=== PATIENT | male | born 1985 | race Caucasian/White ===

== ENCOUNTER 2019-03-06 17:24 | Emergency (ER) | payer OTHER ==
--- OUTSIDE RECORDS SUMMARY | 2019-03-06 17:26 | XMS REPORT ---
:1985 [facility] Address [address] [place] [address] Dr. Vargas [address] [place] [id number] Care Team Providers Name Role Phone Unavailable Unavailable Unavailable Problems This patient has no known problems. Allergies, Adverse Reactions, Alerts This patient has no known allergies or adverse reactions. Medications This patient has no known medications.
[2019-03-06] MEDS ORDERED: FENTANYL CITR 100 MCG/2 ML ONE (18:13)
[2019-03-06] MEDS ORDERED: NA CHLORIDE 0.9% 1,000 ML ONE (18:14)
[2019-03-06] MEDS ORDERED: ONDANSETRON 4 MG/2 ML VIAL ONE (18:14)
[2019-03-06 18:29] LABS: Absolute Monocytes 1.1 K/uL (0.1-1.3); Absolute Neutrophil 8.8 K/uL (1.8-8.0); Basophils % 0.2 % (0-1.3); Eosinophils % 0.2 % (0-4.4); Hematocrit 44.6 % (39.6-49.0); Lymphocytes % 16.5 % (15.3-44.8); MPV 8.4 fL (7.6-11.3); Monocytes % 8.9 % (3.3-12.3); RBC Red Blood Cell Count 4.93 M/uL (4.33-5.43)
[2019-03-06] MEDS ORDERED: LIDOCAINE 1% MPF 5 ML VIAL ONE (18:29)
[2019-03-06] MEDS ORDERED: TETANUS & DIPHTHERIA TOX,ADULT 0.5 ML VIAL ONE (18:29)
[2019-03-06 18:36] LABS: BUN Blood Urea Nitrogen 9 mg/dL (7-18); Bicarbonate 23 mmol/L (21-32); Glucose Level 89 mg/dL (74-106); Potassium 3.6 mmol/L (3.5-5.1); Sodium Level 142 mmol/L (136-145)
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
[2019-03-06 22:34] VITALS: TEMP 99
[2019-03-06 22:36] VITALS: BP 133/98; O2SAT 96
== END 2019-03-06 21:27 | disposition home or self-care (01) ==
LOC: ER 17:24
PROC: 0CQ0XZZ Repair Upper Lip, External Approach (ICD-10-PCS; principal; 2019-03-06)
DX: S01.511A Laceration without foreign body of lip, initial encounter (principal); S02.2XXA Fracture of nasal bones, initial encounter for closed fracture; W50.0XXA Accidental hit or strike by another person, initial encounter; Y93.89 Activity, other specified; Y92.89 Other specified places as the place of occurrence of the external cause; Z04.71 Encounter for examination and observation following alleged adult physical abuse; Z23 Encounter for immunization; F17.210 Nicotine dependence, cigarettes, uncomplicated
CPT/HCPCS: 36415; 70450; 70486; 71260; 72125; 74177; 76377; 80048; 85025; 86850; 86900; 86901; 90471; 90714; 96361; 96374; 96375; 99285; J2405; J3010; J7030; Q9967

== ENCOUNTER 2022-08-08 03:53 | Emergency (ER) | payer OTHER ==
--- OUTSIDE RECORDS SUMMARY | 2022-08-08 03:57 | XMS REPORT | Continuity of Care Document ---
:1985 Author Organization [facility] t Address [address] [place] [address] Care Team Providers Name Role Phone CAS AMADOR Primary Care Physician Unavailable SULEMAN ROJAS Attending Clinician Unavailable Suleman Bhakta Attending Clinician DON FRITZ Attending Clinician Unavailable JAMILAH GUDINO Attending Clinician Unavailable Lab, Adc Fam Pob I Attending Clinician Unavailable Jamilah Cunha Attending Clinician Doctor Unassigned, [place] Attending Clinician Unavailable SULEMAN ROJAS Admitting Clinician Unavailable Payers Payer Name Policy Type Policy Number Effective Date Expiration Date Mckenzie veliz MEDICARE PART A [id number] 2018 \T\ B 00:00:00 Problems Condition Condition Condition Status Onset Resolution Last Treating Co mments Source Name Details Category Date Date Treatment Clinician Date No known No known Disease Unive rs active active ity of problems problems [facility] Allergies, Adverse Reactions, Alerts Allergy Allergy Status Severity Reaction(s) Onset Inactive Treating Comm ents Source Name Type Date Date Clinician NO KNOWN Drug Active Univers ALLERGIE Class ity of S [facility] Social History Social Habit Start Date Stop Date Quantity Comments Source Exposure to 2022-06-08 2022-06-18 Not sure [facility] SARS-CoV-2 (event) 00:00:00 17:18:00 Medica l Branch Sex Ass[birth year] [facility] 00:00:00 00:00:00 Medical Branch Smoking Status Start Date Stop Date Source Tobacco smoking consumption General acute hospital Medications Ordered Filled Start Stop Current Ordering Indication Dosage Frequency Signature Comments Components Source Medication Medication Date Date Medication? Clinician (SIG) Name Name NaCl 0.9% No 1000mL at 999 Uni vers (NS) bolus 06-19 mL/hr, ity of infusion 01:15: 02:59 1,000 mL, Nitin as 1,000 mL 00 :00 IV Medical Infusion, Branch ONCE, 1 dose, On Thu06/18/22 at 2015, MARCIANO cyclobenzap Yes [id number] 10mg Take 1 Univers rine 10 mg 9-21 tablet by ity of tablet 00:00: mouth 3 [place] 00 (three) Medical times Branch daily with meals as needed for Muscle Spasms. ibuprofen Yes [id number] 800mg Take 1 Univers 800 mg 9-21 tablet by ity of tablet 00:00: mouth [place] 00 every 8 Medical (eight) Branch hours as needed for Pain (scale 4-6). sucralfate 2021- Yes [id number] 1g Take 1 Univers 1 gram 9-21 10-06 tablet by ity of tablet 00:00: 04:59 mouth [place] 00 :00 before Medical meals and Branch at bedtime for 14 days. Vital Signs Vital Name Observation Time Observation Value Comments Source Systolic blood 2022-06-19 02:42:00 134 mm[Hg] Univer [facility] Diastolic blood 2022-06-19 02:42:00 79 mm[Hg] [facility] Heart rate 2022-06-19 02:42:00 73 /min [facility] Body temperature 2022-06-19 02:42:00 36.56 [facility] Respiratory rate 2022-06-19 02:42:00 18 /[facility] Oxygen saturation in 2022-06-19 02:42:00 96 /min [facility] Arterial blood by [facility] Pulse oximetry Branch Body weight 2022-06-18 22:19:00 104.327 kg [facility] Procedures Procedure Date / Time Performed Performing Clinician Tricia e URINALYSIS 2022-06-19 00:45:00 Suleman Rojas [facility] COMP. METABOLIC PANEL 2022-06-19 00:23:00 Suleman Rojas [facility] ([id number]) [facility] CBC WITH DIFF 2022-06-19 00:23:00 Suleman Rojas [facility] CT ABDOMEN PELVIS WO 2022-06-19 00:04:00 Suleman Rojas [facility] Encounters Start End Encounter Admission Attending Care Care Encounter Source Date/Time Date/Time Type Type Clinicians Facility Department ID 2022-06-18 2022-06-18 Emergency X BOB, [facility] ERT [id number] Univers 17:20:00 22:23:00 SULEMAN [facility] 2022-06-18 2022-06-18 Emergency [place], TRAUMA [id number] Univers 17:20:00 22:23:00 Suleman B[place] [id number] [id number] [id number] [id number] Branch 2021-11-23 2021-11-23 Outpatient R LAM [facility] [id number] Univers 16:30:00 16:30:00 DON aburto [facility] [place] 2020-11-30 2020-11-30 Outpatient R TERESE [facility] [id number] Univers 17:20:00 17:20:00 [facility] 2020-11-30 Laboratory Lab, Adc Fam Pob I [facility] [id number] Univers 16:56:52 17:16:52 Only Jamilah Gudino [id number] ity of [place] [id number] Nitin as Professio [phone] [address] [employer] 2020-11-30 2020-11-30 Letter Doctor DON [id number] Univers 00:00:00 00:00:00 (Out) Unassigned, VINEET [id number] ity of [place] [facility] [id number] Nitin as [phone] Medi farhana 044 Branch Results This patient has no known results.
[2022-08-08] MEDS ORDERED: ASPIRIN 81 MG CHEWABLE TABLET ONE (04:34)
[2022-08-08] MEDS ORDERED: ONDANSETRON 4 MG/2 ML VIAL ONE (04:35)
[2022-08-08] MEDS ORDERED: NA CHLORIDE 0.9% 1,000 ML ONE (04:35)
[2022-08-08] MEDS ORDERED: FAMOTIDINE 20 MG/2 ML VIAL IV ONE (04:35)
[2022-08-08] MEDS ORDERED: NA CHLORIDE 0.9% 500 ML ONE (04:35)
[2022-08-08] MEDS ORDERED: MORPHINE 4 MG/ML SYR ONE (04:35)
[2022-08-08 05:26] LABS: Absolute Lymphocytes (CBC) 0.8 K/uL (0.7-4.9); Hematocrit 41.7 % (39.6-49.0); Lymphocytes % 10.5 % (15.3-44.8); MCV 89.6 fL (80-100); MPV 8.1 fL (7.6-11.3); RBC Red Blood Cell Count 4.66 M/uL (4.33-5.43)
[2022-08-08 05:29] LABS: Protime INR 0.97
[2022-08-08 05:36] LABS: SARS-CoV-2 Antigen Rapid Res Negative (Negative)
[2022-08-08 05:48] LABS: ALT/SGPT 159 U/L (12-78); Albumin 3.6 g/dL (3.4-5.0); Alkaline Phosphatase 84 U/L (45-117); BUN Blood Urea Nitrogen 9 mg/dL (7-18); Bicarbonate 26 mmol/L (21-32); Bilirubin Total 0.3 mg/dL (0.2-1.0); Glomerular Filtration Rate 104 ml/min (=/>90); Glucose Level 128 mg/dL (74-106); Lipase 125 U/L (73-393); NT PRO-BNP 5 pg/mL (<125); Protein, Total 7.1 g/dL (6.4-8.2); Sodium Level 135 mmol/L (136-145); Troponin High Sensitivity 4.7 pg/mL (<58.9)
[2022-08-08 05:50] LABS: AST/SGOT 93 U/L (15-37); Bilirubin Direct < 0.1 mg/dL (0-0.2); Magnesium 2.2 mg/dL (1.8-2.4); Potassium 4.1 mmol/L (3.5-5.1)
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
--- NOTE | 2022-08-08 07:00 | EDPHYS ---
Physician Documentation [facility] Name: Christo Mcknight Age: 36 yrs Sex: Male : 1985 Arrival Date: 08/08/2022 Time: 03:56 Bed 16 Private MD: DEBBIE Physician Kamari Young HPI: 08/08 05:04 This 36 yrs old Male presents to ER via Ambulatory with complaints of Chest fredo Pain, Numbness Of Arm, Cough. 05:04 The patient or guardian reports chest pain that is located primarily in the anterior fredo chest wall, left. The pain does not radiate. Associated signs and symptoms: The patient has no apparent associated signs or symptoms. The chest pain is described as aching. Duration: The patient or guardian reports a single episode, that is still ongoing. Modifying factors: The symptoms are alleviated by remaining still, the symptoms are aggravated by movement. Severity of pain: At its worst the pain was moderate in the emergency department the pain is unchanged. The patient has not experienced similar symptoms in the past. Historical: - PMHx: 04:28 ACUTE MANIC DEPPRESIION; Bipolar disorder; Schizophrenia; kd3 - Immunization history:: Adult Immunizations up to date. - Social history:: Smoking status: Patient reports the use of cigarette tobacco products, smokes one pack cigarettes per day. - Family history:: not pertinent. ROS: 05:04 Constitutional: Negative for fever, chills, and weight loss, Eyes: Negative for injury, fredo pain, redness, and discharge, ENT: Negative for injury, pain, and discharge, Neck: Negative for injury, pain, and swelling, Respiratory: Negative for shortness of breath, cough, wheezing, and pleuritic chest pain, Back: Negative for injury and pain, : Negative for injury, bleeding, discharge, and swelling, MS/Extremity: Negative for injury and deformity, Skin: Negative for injury, rash, and discoloration, Neuro: Negative for headache, weakness, numbness, tingling, and seizure, Psych: Negative for depression, anxiety, suicide ideation, homicidal ideation, and hallucinations, Allergy/Immunology: Negative for hives, rash, and allergies, Endocrine: Negative for neck swelling, polydipsia, polyuria, polyphagia, and marked weight changes, Hematologic/Lymphatic: Negative for swollen nodes, abnormal bleeding, and unusual bruising. 05:04 Cardiovascular: Positive for chest pain, of the chest. 05:04 Abdomen/GI: Positive for abdominal pain, nausea and vomiting, of the right upper quadrant, left upper quadrant, right lower quadrant and left lower quadrant. Exam: 05:04 Constitutional: This is a well developed, well nourished patient who is awake, alert, fredo and in no acute distress. Head/Face: Normocephalic, atraumatic. Eyes: Pupils equal round and reactive to light, extra-ocular motions intact. Lids and lashes normal. Conjunctiva and sclera are non-icteric and not injected. Cornea within normal limits. Periorbital areas with no swelling, redness, or edema. ENT: Nares patent. No nasal discharge, no septal abnormalities noted. Tympanic membranes are normal and external auditory canals are clear. Oropharynx with no redness, swelling, or masses, exudates, or evidence of obstruction, uvula midline. Mucous membranes moist. Neck: Trachea midline, no thyromegaly or masses palpated, and no cervical lymphadenopathy. Supple, full range of motion without nuchal rigidity, or vertebral point tenderness. No Meningismus. Chest/axilla: Normal chest wall appearance and motion. Nontender with no deformity. No lesions are appreciated. Respiratory: Lungs have equal breath sounds bilaterally, clear to auscultation and percussion. No rales, rhonchi or wheezes noted. No increased work of breathing, no retractions or nasal flaring. Abdomen/GI: Soft, non-tender, with normal bowel sounds. No distension or tympany. No guarding or rebound. No evidence of tenderness throughout. Back: No spinal tenderness. No costovertebral tenderness. Full range of motion. Male : Normal genitalia with no discharge or lesions. Skin: Warm, dry with normal turgor. Normal color with no rashes, no lesions, and no evidence of cellulitis. MS/ Extremity: Pulses equal, no cyanosis. Neurovascular intact. Full, normal range of motion. Neuro: Awake and alert, GCS 15, oriented to person, place, time, and situation. Cranial nerves II-XII grossly intact. Motor strength 5/5 in all extremities. Sensory grossly intact. Cerebellar exam normal. Normal gait. Psych: Awake, alert, with orientation to person, place and time. Behavior, mood, and affect are within normal limits. 05:04 Cardiovascular: Rate: tachycardic, Rhythm: regular, Pulses: Pulses are 4+ in bilateral radial, brachial, femoral, popliteal, posterior tibial and and dorsalis pedis arteries.. Heart sounds: normal, normal S1and S2, no S3 or S4, no murmur, no rub, no gallop, Edema: is not appreciated, JVD: is not appreciated. 05:04 ECG was reviewed by the Attending Physician. 07:12 ECG was reviewed by the Attending Physician. fredo Vital Signs: 04:25 BP 123 / 80; Pulse 107; Resp 20; Temp 98.6(O); Pulse Ox 94% on R/A; Weight 103.42 kg; kd3 Height 5 ft. 9 in. (175.26 cm); Pain 8/10; 05:07 BP 140 / 87; Pulse 110; Resp 18 S; Pulse Ox 96% on R/A; aa9 05:15 BP 125 / 80; Pulse 108; Resp 17 S; Pulse Ox 95% on R/A; aa9 06:00 BP 128 / 82; Pulse 107; Resp 17 S; Pulse Ox 95% on R/A; aa9 07:05 BP 126 / 84; Pulse 103; Resp 16 S; Pulse Ox 99% on R/A; aa9 04:25 Body Mass Index 33.67 (103.42 kg, 175.26 cm) kd3 MDM: 04:18 Patient medically screened. fredo 05:07 Differential diagnosis: abnormal EKG, acute myocardial infarction, coronary artery fredo disease chest wall pain, Cholelithiasis costochondritis, hiatal hernia, pancreatitis, pericarditis, stable angina, unstable angina. HEART Score: History: Slightly Suspicious (0), ECG: Non specific repolarization disturbance / LBTB / PM (1), Age: < or = 45 years (0), Risk Factors: No Risk Factors Known (0), Troponin: < or = 1 x Normal Limit (0). The patient's deep vein thrombosis risk score was calculated as follows: Total Score: 0. This patient was found to be at low risk for a deep vein thrombosis by using the Well's assessment criteria. The patient's pulmonary embolism risk score was calculated as follows: the patients heart rate is greater than 100 beats per minute (1.5 Pts) Total Score: 0-2 points. This patient was found to be at low risk for a pulmonary embolism by using the Well's assessment criteria. JOSELO Risk Score: TOTAL SCORE = 0. Data reviewed: vital signs, nurses notes, lab test result(s), EKG, radiologic studies, CT scan, plain films. Data interpreted: deputy clerk: rate is 107 beats/min, rhythm is regular, Pulse oximetry: on room air is 94 %. Test interpretation: by ED physician or midlevel provider: ECG, plain radiologic studies. Counseling: I had a detailed discussion with the patient and/or guardian regarding: the historical points, exam findings, and any diagnostic results supporting the discharge/admit diagnosis, radiology results, the need for outpatient follow up, for definitive care, a fire prevention specialist, a family practitioner. 08/08 04:18 Order name: Basic Metabolic Panel; Complete Time: 06:21 [facility] 08/08 04:18 Order name: CBC with Diff; Complete Time: 05:34 08/08 04:18 Order name: LFT's; Complete Time: 06:21 08/08 04:18 Order name: Magnesium; Complete Time: 06:21 08/08 04:18 Order name: NT PRO-BNP; Complete Time: 06:21 08/08 04:18 Order name: PT-INR; Complete Time: 05:34 08/08 04:18 Order name: Troponin HS; Complete Time: 06:21 08/08 04:18 Order name: XRAY Chest (1 view) 08/08 04:18 Order name: Lipase; Complete Time: 06:21 08/08 04:18 Order name: SARS RAPID; Complete Time: 06:21 08/08 04:49 Order name: CT Chest, Abdomen, Pelvis - W/Contrast 08/08 06:54 Order name: Troponin High Sensitivity; Complete Time: 07:43 08/08 04:18 Order name: EKG; Complete Time: 04:19 08/08 04:18 Order name: Cardiac monitoring; Complete Time: 04:31 08/08 04:18 Order name: EKG - Nurse/Tech; Complete Time: 04:31 08/08 04:18 Order name: IV Saline Lock; Complete Time: 05:14 08/08 04:18 Order name: Labs collected and sent; Complete Time: 05:15 08/08 04:18 Order name: O2 Per Protocol; Complete Time: 04: [facility] 08/08 04:18 Order name: O2 Sat Monitoring; Complete Time: : fredo 08/08 07:00 Order name: EKG; Complete Time: 07:01 [facility] 08/08 07:00 Order name: EKG - Nurse/Tech; Complete Time: 07:09 fredo EC:04 Rate is 107 beats/min. Rhythm is regular. QRS Wayne is Normal. MA interval is normal. fredo QRS interval is normal. QT interval is normal. No Q waves. T waves are Normal. No ST changes noted. Clinical impression: NSR w/ Non-specific ST/T Changes, Sinus tachycardia, and No evidence of ischemia. Interpreted by me. Reviewed by me. 07:12 Rate is 96 beats/min. Rhythm is regular. QRS Wayne is Normal. MA interval is normal. QRS fredo interval is normal. QT interval is normal. No Q waves. T waves are Normal. No ST changes noted. Clinical impression: Normal ECG and No evidence of ischemia. Interpreted by me. Reviewed by me. Administered Medications: 05:15 Drug: Aspirin Chewable Tablet 324 mg Route: PO; aa9 07:06 Follow up: Response: No adverse reaction aa9 05:15 Drug: Pepcid (famotidine) 20 mg Route: IVP; Site: left antecubital; aa9 07:06 Follow up: Response: No adverse reaction aa9 05:15 Drug: NS 0.9% 500 ml Route: IV; Rate: bolus; Site: left antecubital; aa9 05:15 Drug: NS 0.9% 1000 ml Route: IV; Rate: 125 ml/hr; Site: left antecubital; aa9 05:15 Drug: morphine 4 mg Route: IVP; Infused Over: 4 mins; Site: left antecubital; aa9 07:06 Follow up: Response: No adverse reaction aa9 05:15 Drug: Zofran (Ondansetron) 4 mg Route: IVP; Site: left antecubital; aa9 07:06 Follow up: Response: No adverse reaction aa9 Disposition Summary: 08/08/22 07:00 Discharge Ordered Location: Home fredo Problem: new fredo Symptoms: have improved fredo Condition: Stable fredo Diagnosis - Chest pain on breathing fredo - Abdominal pain, Generalized fredo - Obesity, unspecified fredo Followup: fredo - With: Private Physician - When: 2 - 3 days - Reason: Recheck today's complaints, Continuance of care, Re-evaluation by your physician Followup: fredo - With: - When: 2 - 3 days - Reason: Recheck today's complaints, Re-evaluation by your physician Discharge Instructions: - Discharge Summary Sheet fredo - Abdominal Pain, Adult fredo - Chest Wall Pain, [id number] fredo - Abdominal Pain, Adult, [id number] fredo - Nonspecific Chest Pain, Adult, [id number] fredo - Tobacco Use Disorder fredo - Aspirin and Your Heart [facility] Forms: - Medication Reconciliation Form fredo - Thank You Letter fredo - Antibiotic Education [facility] - Prescription Opioid Use [facility] Prescriptions: - albuterol sulfate 90 mcg/actuation Inhalation HFA aerosol inhaler - inhale 2 puff by INHALATION route every 4-6 hours; 1 Pump; Refills: 0, Product [facility] Selection Permitted - Pepcid 20 mg Oral Tablet - take 1 tablet by ORAL route every 12 hours for 10 days; 20 tablet; Refills: 0, [facility] Product Selection Permitted - Zofran 4 mg Oral Tablet - take 1 tablet by ORAL route every 12 hours As needed; 20 tablet; Refills: 0, [facility] Product Selection Permitted - dicyclomine 20 mg Oral Tablet - take 1 tablet by ORAL route 4 times per day; 28 tablet; Refills: 0, Product [facility] Selection Permitted Signatures: Dispatcher [employer] Kamari Gallegos MD MD cha Doucette, Kyli, RN RN kd3 Sierra Patton RN RN aa9
[2022-08-08 08:11] VITALS: TEMP 98.6
[2022-08-08 08:16] VITALS: BP 126/84; O2SAT 99
--- NOTE | 2022-08-08 10:23 | RAD REPORT ---
EXAM DESCRIPTION: Chest Abdomen Pelvis W Cont CLINICAL HISTORY: 36 years Male pain COMPARISON: None TECHNIQUE: Contrast-enhanced CT of the chest, abdomen, and pelvis. This exam was performed according to our departmental dose-optimization program, which includes autom ated exposure control, adjustment of the mA and/or kV according to patient size and/or use of iterati ve reconstruction technique. FINDINGS: CHEST: Mediastinum: Thoracic aorta is normal in size. No mediastinal hematoma. No mediastinal adenopathy. No pericardial effusion. Heart size is normal. No large central filling defects within the main pulmonary arteries. Lungs/airway/pleura: Central airways are clear. No focal consolidation. Bilateral dependent reticular opacities, likely atelectasis. No pneumothorax. No pleural effusion. Bones: No acute findings. Soft tissues: No acute findings. ABDOMEN/PELVIS: Abdomen: Stomach: Within normal limits Liver: No focal lesions. Hepatic steatosis. No intrahepatic ductal distention. Gallbladder: Mildly distended. Pancreas: Within normal limits Spleen: Within normal limits Right kidney: No hydronephrosis. No focal lesion. Left kidney: No hydronephrosis. No focal lesion. Adrenal glands: Within normal limits Vascular structures: Within normal limits Nodes: No lymphadenopathy by size criteria Pelvis: Small bowel: No significant distention. Appendix: Within normal limits Colon: No distention or acute pericolonic edema. Peritoneum: No free intraperitoneal fluid or air. Bones: No acute bone findings. Bladder: Unremarkable. Reproductive organs: No acute findings. IMPRESSION: 1. No acute thoracic or abdominopelvic findings. 2. Hepatic steatosis. Electronically signed by: Shaina Stone MD 08/08/2022 6:52 AM COMMUNICATION SKILLS INSTRUCTOR Due to temporary technical issues with the PACS/Fluency reporting system, reports are being signed by the in house radiologists without review as a courtesy to insure prompt reporting. The interpreting radiologist is fully responsible for the content of the report.
--- NOTE | 2022-08-08 14:42 | RAD REPORT ---
EXAM DESCRIPTION: X-ray single view chest. CLINICAL HISTORY: 36 years Male, CHEST PAIN COMPARISON: None. TECHNIQUE: Single portable x-ray view of the chest performed on 08/08/2022 at 4:27 AM FINDINGS: The lungs are well expanded and are clear. There is no evidence of a pneumothorax. The cardiac silhouette is normal in size and configuration. The mediastinal contours are normal. No acute osseous abnormality is identified. No acute soft tissue abnormalities are seen. Lines and tubes: None. Free air: None IMPRESSION: No evidence of acute intrathoracic disease. Electronically signed by: Analilia Renee DO 08/08/2022 5:09 AM CHIEF TECHNOLOGY OFFICER Due to temporary technical issues with the PACS/Fluency reporting system, reports are being signed by the in house radiologists without review as a courtesy to insure prompt reporting. The interpreting radiologist is fully responsible for the content of the report.
--- NOTE | 2022-08-08 15:55 | EKG ---
Test Date: 2022-08-08 Test Time: 07:08:55 Wall Crane Operator: LAURY MEASUREMENT RESULTS: Intervals: Rate: 96 ME: 166 QRSD: 92 QT: 352 QTc: 444 [place]: P: 54 ME: 166 QRS: 79 T: 55 INTERPRETIVE STATEMENTS: Normal sinus rhythm Normal ECG Compared to ECG 08/08/2022 04:18:51 Sinus tachycardia no longer present Electronically Signed On 08-08-22 15:54:36 MOBILE SALES TECHNICIAN by Faisal Hurd
--- NOTE | 2022-08-08 15:56 | EKG ---
Test Date: 2022-08-08 Test Time: 04:18:51 Hub Cutter Apprentice: JACK MEASUREMENT RESULTS: Intervals: Rate: 107 ID: [id number] QRSD: 88 QT: 328 QTc: 437 [place]: P: 61 ID: [id number] QRS: 77 T: 47 INTERPRETIVE STATEMENTS: Sinus tachycardia Otherwise normal ECG Compared to ECG 08/06/2016 13:55:02 No significant changes Electronically Signed On 08-08-22 15:54:59 DATA ENTRY OPERATOR by Faisal Hurd
== END 2022-08-08 08:05 | disposition home or self-care (01) ==
LOC: ER 03:53
DX: R07.1 Chest pain on breathing (principal); R10.84 Generalized abdominal pain; E66.9 Obesity, unspecified; Z68.33 Body mass index [BMI] 33.0-33.9, adult; Z20.822 Contact with and (suspected) exposure to COVID-19; F17.210 Nicotine dependence, cigarettes, uncomplicated
CPT/HCPCS: 93005 ×2; 85025; 80048; 36415; 83735; 85610; 80076; 84484 ×2; 83690; 83880; 71260; 74177; 71045; 96375; 96374; 99285; 87811; Q9967; J7040; J7030; J2405

== ENCOUNTER 2022-11-20 23:58 | Emergency (ER) | payer OTHER, SELFPAY ==
--- OUTSIDE RECORDS SUMMARY | 2022-11-21 00:04 | XMS REPORT | Continuity of Care Document ---
:1985 Author Organization [facility] t Address [address] [place] [address] Care Team Providers Name Role Phone ALEKS CASEY Primary Care Physician Unavailable LENARD AVILA Attending Clinician Unavailable MENDEZ BRADY Attending Clinician Unavailable YUE FIGUEROA Attending Clinician Unavailable Mendez Brady MD Attending Clinician Aleks Casey MD Attending Clinician Cas Amador MD Attending Clinician Doctor Unassigned, [place] Attending Clinician Unavailable Vida Easley MD Attending Clinician VIDA EASLEY Attending Clinician Unavailable CAS AMADOR Attending Clinician Unavailable TEODORO COTO S Attending Clinician Unavailable Teodoro Ortiz S Attending Clinician Cory Attending Clinician Unavailable BOB, SULEMAN B Attending Clinician Unavailable Tignallareli WISEMAN Sulmean B Attending Clinician DON FRITZ Attending Clinician Unavailable JAMILAH MCGEE Attending Clinician Unavailable Lab, Adc Fam Pob I Attending Clinician Unavailable Jamilah Cunha Attending Clinician MENDEZ BRADY Admitting Clinician Unavailable Cory Admitting Clinician Unavailable BOB SULEMAN B Admitting Clinician Unavailable Payers Payer Name Policy Type Policy Number Effective Date Expiration Date [facility] [id number] 2022 PREFERRED GENERIC 00:00:00 MEDICARE PART A \T\ [id number] 2018 B 00:00:00 Problems Condition Condition Condition Status Onset Resolution Last Treating Co mments Source Name Details Category Date Date Treatment Clinician Date No known No known Disease Unive rs active active ity of problems problems [facility] Allergies, Adverse Reactions, Alerts Allergy Allergy Status Severity Reaction(s) Onset Inactive Treating Comm ents Source Name Type Date Date Clinician NO KNOWN Drug Active Univers ALLERGIE Class ity of S [facility] Social History Social Habit Start Date Stop Date Quantity Comments Source History of Cigarette Smoker Universi ty of tobacco use [facility] Exposure to 2022-10-27 2022-11-06 Not sure University of SARS-CoV-2 00:00:00 13:11:00 [facility] (event) Branch Tobacco use and 2022-10-07 2022-10-07 Smokeless tobacco Un iversity of exposure 00:00:00 00:00:00 non-user [facility] Sex Ass[birth year] Universit y of 00:00:00 00:00:00 [facility] Smoking Status Start Date Stop Date Source Tobacco smoking consumption Univ ersity of [facility] unknown [place] Smokes tobacco daily 2022-10-07 [facility]:00[facility] F[facility] Start Stop Current Ordering Indication Dosage Frequency Signature Comments Components Source Medication Medication Date Date Medication? Clinician (SIG) Name Name cyclobenzap Yes [id number] 10mg Take 1 Univers rine 10 mg 1-23 tablet by ity of tablet 00:00: mouth 3 [place] (three) Medical times Branch daily with meals as needed for Muscle Spasms. gabapentin Yes [id number] 300mg Take 1 Univers 300 mg 1-23 capsule by ity of capsule 00:00: mouth in [place] the Medical morning Branch and 1 capsule at noon and 1 capsule in the evening. meloxicam Yes [id number] 15mg Take 1 U nivers 15 mg 1-23 tablet by ity of tablet 00:00: mouth in [place] 00 the Medical morning. Branch cyclobenzap Yes [id number] 10mg Take 1 Univers rine 10 mg 1-23 tablet by ity of tablet 00:00: mouth 3 () Medical times [place] daily with meals as needed for Muscle Spasms. gabapentin 2023-0 Yes [id number] 300mg Take 1 Univers 300 mg 1-23 capsule by ity of capsule 00:00: mouth in [place] the Medical morning Branch and 1 capsule at noon and 1 capsule in the evening. meloxicam 2023-0 Yes [id number] 15mg Take 1 U nivers 15 mg 1-23 tablet by ity of tablet 00:00: mouth in [place] the Medical morning. Branch cyclobenzap 2023-0 Yes [id number] 10mg Take 1 Univers rine 10 mg 1-23 tablet by ity of tablet 00:00: mouth [place] () Medical times [place] daily with meals as needed for Muscle Spasms. gabapentin 3-0 Yes [id number] 300mg Take 1 Univers 300 mg 1-23 capsule by ity of capsule 00:00: mouth in [place] the Medical morning Branch and 1 capsule at noon and 1 capsule in the evening. meloxicam 2023-0 Yes [id number] 15mg Take 1 U nivers 15 mg 1-23 tablet by ity of tablet 00:00: mouth in [place] the Medical morning. Branch cyclobenzap 3-0 Yes [id number] 10mg Take 1 Univers rine 10 mg 1-23 tablet by ity of tablet 00:00: mouth [place] () [facility] times [place] daily with meals as needed for Muscle Spasms. gabapentin 3-0 Yes [id number] 300mg Take 1 Univers 300 mg 1-23 capsule by ity of capsule 00:00: mouth in [place] the Medical morning Branch and 1 capsule at noon and 1 capsule in the evening. meloxicam 2023-0 Yes [id number] 15mg Take 1 U nivers 15 mg 1-23 tablet by ity of tablet 00:00: mouth in [place] the Medical morning. Branch cyclobenzap 3-0 Yes [id number] 10mg Take 1 Univers rine 10 mg 1-23 tablet by ity of tablet 00:00: mouth [place] (three) Medical times [place] daily with meals as needed for Muscle Spasms. gabapentin 2023-0 Yes [id number] 300mg Take 1 Univers 300 mg 1-23 capsule by ity of capsule 00:00: mouth in [place] the Medical morning Branch and 1 capsule at noon and 1 capsule in the evening. meloxicam 2023-0 Yes [id number] 15mg Take 1 U nivers 15 mg 1-23 tablet by ity of tablet 00:00: mouth in [place] the Medical morning. Branch cyclobenzap 3-0 Yes [id number] 10mg Take 1 Univers rine 10 mg 1-23 tablet by ity of tablet 00:00: mouth 3 [place] ([facility]) [facility] times [place] daily with meals as needed for Muscle Spasms. gabapentin 3-0 Yes [id number] 300mg Take 1 Univers 300 mg 1-23 capsule by ity of capsule 00:00: mouth in [place] the Medical morning Branch and 1 capsule at noon and 1 capsule in the evening. meloxicam 2023-0 Yes [id number] 15mg Take 1 U nivers 15 mg 1-23 tablet by ity of tablet 00:00: mouth in [place] the morning. Branch cyclobenzap 2022-0 Yes [id number] 10mg Take 1 Univers rine 10 mg 1-23 tablet by ity of tablet 00:00: mouth 3 [place] [address] ([facility]) [facility] daily with meals as needed for Muscle Spasms. gabapentin 3-0 Yes [id number] 300mg Take 1 Univers 300 mg 1-23 capsule by ity of capsule 00:00: mouth in [place] the morning Branch and 1 capsule at noon and 1 capsule in the evening. meloxicam 3-0 Yes [id number] 15mg Take 1 U nivers 15 mg 1-23 tablet by ity of tablet 00:00: mouth in [place] the morning. Branch cyclobenzap 3-0 Yes [id number] 10mg Take 1 Univers rine 10 mg 1-23 tablet by ity of tablet 00:00: mouth 3 [place] [address] ([facility]) [facility] daily with meals as needed for Muscle Spasms. gabapentin 2023-0 Yes [id number] 300mg Take 1 Univers 300 mg 1-23 capsule by ity of capsule 00:00: mouth in [place] [address] the Medical morning Branch and 1 capsule at noon and 1 capsule in the evening. meloxicam 2023-0 Yes [id number] 15mg Take 1 U nivers 15 mg 1-23 tablet by ity of tablet 00:00: mouth in [place] the Medical morning. Branch cyclobenzap 2022-0 Yes [id number] 10mg Take 1 Univers rine 10 mg 1-23 tablet by ity of tablet 00:00: mouth 3 [place] (three) Medical times [place] daily with meals as needed for Muscle Spasms. gabapentin 2022-0 Yes [id number] 300mg Take 1 Univers 300 mg 1-23 capsule by ity of capsule 00:00: mouth in [place] the Medical morning Branch and 1 capsule at noon and 1 capsule in the evening. meloxicam 2023-0 Yes [id number] 15mg Take 1 U nivers 15 mg 1-23 tablet by ity of tablet 00:00: mouth in [place] the Medical morning. Branch cyclobenzap 2022-0 Yes [id number] 10mg Take 1 Univers rine 10 mg 1-23 tablet by ity of tablet 00:00: mouth 3 [place] [address] ([facility]) [facility] times [place] daily with meals as needed for Muscle Spasms. gabapentin 2022-0 Yes [id number] 300mg Take 1 Univers 300 mg 1-23 capsule by ity of capsule 00:00: mouth in [place] the Medical morning Branch and 1 capsule at noon and 1 capsule in the evening. meloxicam 3-0 Yes [id number] 15mg Take 1 U nivers 15 mg 1-23 tablet by ity of tablet 00:00: mouth in [place] the Medical morning. Branch cyclobenzap 2022-0 Yes [id number] 10mg Take 1 Univers rine 10 mg 1-23 tablet by ity of tablet 00:00: mouth 3 [place] [address] ([facility]) [facility] times [place] daily with meals as needed for Muscle Spasms. gabapentin 3-0 Yes [id number] 300mg Take 1 Univers 300 mg 1-23 capsule by ity of capsule 00:00: mouth in [place] [address] the Medical morning Branch and 1 capsule at noon and 1 capsule in the evening. meloxicam 2023-0 Yes [id number] 15mg Take 1 U nivers 15 mg 1-23 tablet by ity of tablet 00:00: mouth in [place] [address] the Medical morning. Branch cyclobenzap 2022-0 Yes [id number] 10mg Take 1 Univers rine 10 mg 1-23 tablet by ity of tablet 00:00: mouth 3 [place] [address] (three) Medical times [place] daily with meals as needed for Muscle Spasms. gabapentin 2022-0 Yes [id number] 300mg Take 1 Univers 300 mg 1-23 capsule by ity of capsule 00:00: mouth in [place] the Medical morning Branch and 1 capsule at noon and 1 capsule in the evening. meloxicam 2022-0 Yes [id number] 15mg Take 1 U nivers 15 mg 1-23 tablet by ity of tablet 00:00: mouth in [place] the Medical morning. Branch meloxicam 2022-0 Yes [id number] 15mg Take 1 U nivers 15 mg 1-12 tablet by ity of tablet 00:00: mouth in [place] the Medical morning. Branch meloxicam 2022-0 Yes [id number] 15mg Take 1 U nivers 15 mg 1-12 tablet by ity of tablet 00:00: mouth in [place] the Medical morning. Branch meloxicam 2022-0 Yes [id number] 15mg Take 1 U nivers 15 mg 1-12 tablet by ity of tablet 00:00: mouth in [place] the Medical morning. Branch meloxicam 2022-0 Yes [id number] 15mg Take 1 U nivers 15 mg 1-12 tablet by ity of tablet 00:00: mouth in [place] the Medical morning. Branch meloxicam 2022-0 Yes [id number] 15mg Take 1 U nivers 15 mg 1-12 tablet by ity of tablet 00:00: mouth in [place] the Medical morning. Branch meloxicam 2022-0 Yes [id number] 15mg Take 1 U nivers 15 mg 1-12 tablet by ity of tablet 00:00: mouth in [place] the Medical morning. Branch meloxicam 2022-0 Yes [id number] 15mg Take 1 U nivers 15 mg 1-12 tablet by ity of tablet 00:00: mouth in [place] the Medical morning. Branch meloxicam 2022-0 Yes [id number] 15mg Take 1 U nivers 15 mg 1-12 tablet by ity of tablet 00:00: mouth in [place] the Medical morning. Branch meloxicam 2022-0 Yes [id number] 15mg Take 1 U nivers 15 mg 1-12 tablet by ity of tablet 00:00: mouth in [place] the Medical morning. [place] methocarbam 3-0 2023- Yes [id number] 500mg Take 1 Univers oL 500 mg 10-09 tablet by ity of tablet 00:00: 05:59 mouth 4 [place] 00 :00 (four) Medical times Branch daily for 30 days. methocarbam 2022- Yes [id number] 500mg Take 1 Univers oL 500 mg 10-09-12 tablet by ity of tablet 00:00: 05:59 mouth 4 [place] 00 :00 (four) Medical times Branch daily for 30 days. methocarbam 2022- Yes [id number] 500mg Take 1 Univers oL 500 mg 10-09- tablet by ity of tablet 00:00: 05:59 mouth 4 [place] 00 :00 (four) Medical times Branch daily for 30 days. methocarbam 2022- Yes [id number] 500mg Take 1 Univers oL 500 mg 10-09 tablet by ity of tablet 00:00: 05:59 mouth 4 [place] 00 :00 (four) Medical times Branch daily for 30 days. methocarbam 2022- Yes [id number] 500mg Take 1 Univers oL 500 mg 10-09 tablet by ity of tablet 00:00: 05:59 mouth 4 [place] 00 :00 (four) Medical times Branch daily for 30 days. methocarbam 2022- Yes [id number] 500mg Take 1 Univers oL 500 mg 10-09 tablet by ity of tablet 00:00: 05:59 mouth 4 [place] 00 :00 (four) Medical times Branch daily for 30 days. methocarbam 2022- Yes [id number] 500mg Take 1 Univers oL 500 mg 10-09- tablet by ity of tablet 00:00: 05:59 mouth 4 [place] 00 :00 (four) Medical times Branch daily for 30 days. methocarbam 2022- Yes [id number] 500mg Take 1 Univers oL 500 mg 10-09-12 tablet by ity of tablet 00:00: 05:59 mouth 4 [place] 00 :00 (four) Medical times Branch daily for 30 days. methocarbam 2022- Yes [id number] 500mg Take 1 Univers oL 500 mg 10-09-12 tablet by ity of tablet 00:00: 05:59 mouth 4 [place] 00 :00 (four) Medical times Branch daily for 30 days. methocarbam 2022-0 2022- Yes [id number] 500mg Take 1 Univers oL 500 mg 10-09-12 tablet by ity of tablet 00:00: 05:59 mouth 4 [place] 00 :00 [facility] Medical times Branch daily for 30 days. methocarbam 2022-0 2022- Yes [id number] 500mg Take 1 Univers oL 500 mg 10-09-12 tablet by ity of tablet 00:00: 05:59 mouth 4 [place] 00 :00 [facility] Medical times Branch daily for 30 days. methocarbam 2022-0 2022- Yes [id number] 500mg Take 1 Univers oL 500 mg 10-09-12 tablet by ity of tablet 00:00: 05:59 mouth 4 [place] 00 :00 [facility] Medical times Branch daily for 30 days. methocarbam 2022-0 2022- Yes [id number] 500mg Take 1 Univers oL 500 mg 10-09-12 tablet by ity of tablet 00:00: 05:59 mouth 4 [place] 00 :00 [facility] Medical times Branch daily for 30 days. methocarbam 2022-0 2022- Yes [id number] 500mg Take 1 Univers oL 500 mg 10-09-12 tablet by ity of tablet 00:00: 05:59 mouth 4 [place] 00 :00 [facility] Medical times Branch daily for 30 days. methocarbam 2022-0 2022- Yes [id number] 500mg Take 1 Univers oL 500 mg 10-09-12 tablet by ity of tablet 00:00: 05:59 mouth 4 [place] 00 :00 ([facility] Medical times Branch daily for 30 days. methocarbam 2022-0 2022- Yes [id number] 500mg Take 1 Univers oL 500 mg 10-09-12 tablet by ity of tablet 00:00: 05:59 mouth 4 [place] 00 :00 ([facility] Medical times Branch daily for 30 days. methocarbam 2022-0 3- No [id number] 500mg Take 1 Univers oL 500 mg 10-09-12 tablet by ity of tablet 00:00: 05:59 mouth 4 [place] 00 :00 ([facility] Medical times Branch daily for 30 days. methocarbam 2022-0 2022- No [id number] 500mg Take 1 Univers oL 500 mg 10-09 tablet by ity of tablet 00:00: 05:59 mouth 4 [place] 00 :00 (four) Medical times Branch daily for 30 days. meloxicam 2022- No [id number] 15mg Take 1 Univers 15 mg 10-09 tablet by ity of tablet 00:00: 00:00 mouth in [place] 00 :00 the Medical morning. Branch HYDROcodone 2022- Yes [id number] 1{tbl} Take 1 U nivers -acetaminop -12 -20 tablet by it y of hen (Bubbli) 00:00: 05:59 [place] 10-325 mg 00 :00 every 6 Medical tablet (six) Branch hours as needed (Patient to take pill 30 minutes before MRI begins.) for up to 7 days. Indication s: acute pain HYDROcodone 2022- Yes [id number] 1{tbl} Take 1 U nivers -acetaminop -08 28-20 tablet by it y of hen (Bubbli) 00:00: 05:59 [place] 10[place] 00 :00 every 6 Medical tablet (six) Branch hours as needed (Patient to take pill 30 minutes before MRI begins.) for up to 7 days. Indication s: acute pain HYDROcodone 2022- Yes [id number] 1{tbl} Take 1 U nivers -acetaminop -12 -20 tablet by it y of hen (NORCO) 00:00: 05:59 mouth [place] 10[place] mg 00 :00 every 6 Medical tablet (six) Branch hours as needed (Patient to take pill 30 minutes before MRI begins.) for up to 7 days. Indication s: acute pain HYDROcodone 2022- Yes [id number] 1{tbl} Take 1 U nivers -acetaminop 1-12 01-20 tablet by it y of hen ([employer]) 00:00: 05:59 mouth [place] 10[place] mg 00 :00 every 6 Medical tablet (six) Branch hours as needed (Patient to take pill 30 minutes before MRI begins.) for up to 7 days. Indication s: acute pain HYDROcodone 2022- No 4647 1{tbl} Take 1 U nivers -acetaminop 1-12 01-20 tablet by it y of hen (NORCO) 00:00: 05:59 [place] 10[place] mg 00 :00 every 6 Medical tablet (six) Branch hours as needed (Patient to take pill 30 minutes before MRI begins.) for up to 7 days. Indication s: acute pain HYDROcodone 2022-0 2022- No [id number] 1{tbl} Take 1 U nivers -acetaminop -12 -20 tablet by it y of hen (NORCO) 00:00: 05:59 mouth [place] 10[place] mg 00 :00 every 6 Medical tablet (six) Branch hours as needed (Patient to take pill 30 minutes before MRI begins.) for up to 7 days. Indication s: acute pain gabapentin 2022-0 Yes [id number] 300mg Take 1 Univers 300 mg 1-09 capsule by ity of capsule 00:00: mouth in [place] the Medical morning Branch and 1 capsule at noon and 1 capsule in the evening. lisinopriL 2022-0 Yes [id number] 10mg Take 1 U nivers 10 mg 1-09 tablet by ity of tablet 00:00: mouth in [place] the Medical morning. Branch gabapentin 3-0 Yes [id number] 300mg Take 1 Univers 300 mg 1-09 capsule by ity of capsule 00:00: mouth in [place] the Medical morning Branch and 1 capsule at noon and 1 capsule in the evening. lisinopriL 3-0 Yes [id number] 10mg Take 1 U nivers 10 mg 1-09 tablet by ity of tablet 00:00: mouth in [place] the morning. Branch gabapentin 3-0 Yes [id number] 300mg Take 1 Univers 300 mg 1-09 capsule by ity of capsule 00:00: mouth in [place] the Medical morning Branch and 1 capsule at noon and 1 capsule in the evening. lisinopriL 2023-0 Yes [id number] 10mg Take 1 U nivers 10 mg 1-09 tablet by ity of tablet 00:00: mouth in [place] the morning. Branch gabapentin 3-0 Yes [id number] 300mg Take 1 Univers 300 mg 1-09 capsule by ity of capsule 00:00: mouth in [place] the morning Branch and 1 capsule at noon and 1 capsule in the evening. lisinopriL 2023-0 Yes [id number] 10mg Take 1 U nivers 10 mg 1-09 tablet by ity of tablet 00:00: mouth in [place] the morning. Branch gabapentin 2023-0 Yes [id number] 300mg Take 1 Univers 300 mg 1-09 capsule by ity of capsule 00:00: mouth in [place] the Medical morning Branch and 1 capsule at noon and 1 capsule in the evening. lisinopriL 2023-0 Yes [id number] 10mg Take 1 U nivers 10 mg 1-09 tablet by ity of tablet 00:00: mouth in [place] the morning. Branch gabapentin 2023-0 Yes [id number] 300mg Take 1 Univers 300 mg 1-09 capsule by ity of capsule 00:00: mouth in [place] the Medical morning Branch and 1 capsule at noon and 1 capsule in the evening. lisinopriL 2023-0 Yes [id number] 10mg Take 1 U nivers 10 mg 1-09 tablet by ity of tablet 00:00: mouth in [place] the morning. Branch gabapentin 2023-0 Yes [id number] 300mg Take 1 Univers 300 mg 1-09 capsule by ity of capsule 00:00: mouth in [place] the Medical morning Branch and 1 capsule at noon and 1 capsule in the evening. lisinopriL 2023-0 Yes [id number] 10mg Take 1 U nivers 10 mg 1-09 tablet by ity of tablet 00:00: mouth in [place] the morning. Branch gabapentin 2023-0 Yes [id number] 300mg Take 1 Univers 300 mg 1-09 capsule by ity of capsule 00:00: mouth in [place] the Medical morning Branch and 1 capsule at noon and 1 capsule in the evening. lisinopriL 2023-0 Yes [id number] 10mg Take 1 U nivers 10 mg 1-09 tablet by ity of tablet 00:00: mouth in [place] the Medical morning. Branch gabapentin 2023-0 Yes [id number] 300mg Take 1 Univers 300 mg 1-09 capsule by ity of capsule 00:00: mouth in [place] the Medical morning Branch and 1 capsule at noon and 1 capsule in the evening. lisinopriL 2023-0 Yes [id number] 10mg Take 1 U nivers 10 mg 1-09 tablet by ity of tablet 00:00: mouth in [place] the Medical morning. Branch gabapentin 2023-0 Yes [id number] 300mg Take 1 Univers 300 mg 1-09 capsule by ity of capsule 00:00: mouth in [place] the morning Branch and 1 capsule at noon and 1 capsule in the evening. lisinopriL 2023-0 Yes [id number] 10mg Take 1 U nivers 10 mg 1-09 tablet by ity of tablet 00:00: mouth in [place] the morning. Branch gabapentin 2023-0 Yes [id number] 300mg Take 1 Univers 300 mg 1-09 capsule by ity of capsule 00:00: mouth in [place] the Medical morning Branch and 1 capsule at noon and 1 capsule in the evening. lisinopriL 2023-0 Yes [id number] 10mg Take 1 U nivers 10 mg 1-09 tablet by ity of tablet 00:00: mouth in [place] the morning. Branch gabapentin 2023-0 Yes [id number] 300mg Take 1 Univers 300 mg 1-09 capsule by ity of capsule 00:00: mouth in [place] the morning Branch and 1 capsule at noon and 1 capsule in the evening. lisinopriL 2023-0 Yes [id number] 10mg Take 1 U nivers 10 mg 1-09 tablet by ity of tablet 00:00: mouth in [place] the morning. Branch gabapentin 2023-0 Yes [id number] 300mg Take 1 Univers 300 mg 1-09 capsule by ity of capsule 00:00: mouth in [place] the morning Branch and 1 capsule at noon and 1 capsule in the evening. lisinopriL 2023-0 Yes [id number] 10mg Take 1 U nivers 10 mg 1-09 tablet by ity of tablet 00:00: mouth in [place] the morning. Branch gabapentin 2023-0 Yes [id number] 300mg Take 1 Univers 300 mg 1-09 capsule by ity of capsule 00:00: mouth in [place] the Medical morning Branch and 1 capsule at noon and 1 capsule in the evening. lisinopriL 2023-0 Yes [id number] 10mg Take 1 U nivers 10 mg 1-09 tablet by ity of tablet 00:00: mouth in [place] the morning. Branch gabapentin 2023-0 Yes [id number] 300mg Take 1 Univers 300 mg 1-09 capsule by ity of capsule 00:00: mouth in [place] 00 the Medical morning Branch and 1 capsule at noon and 1 capsule in the evening. lisinopriL 2023-0 Yes [id number] 10mg Take 1 U nivers 10 mg 1-09 tablet by ity of tablet 00:00: mouth in [place] 00 the Medical morning. Branch lisinopriL 2023-0 Yes [id number] 10mg Take 1 U nivers 10 mg 1-09 tablet by ity of tablet 00:00: mouth in [place] 00 the Medical morning. Branch lisinopriL 2023-0 Yes [id number] 10mg Take 1 U nivers 10 mg 1-09 tablet by ity of tablet 00:00: mouth in [place] 00 the Medical morning. Branch lisinopriL 2023-0 Yes [id number] 10mg Take 1 U nivers 10 mg 1-09 tablet by ity of tablet 00:00: mouth in [place] 00 the Medical morning. Branch lisinopriL 2023-0 Yes [id number] 10mg Take 1 U nivers 10 mg 1-09 tablet by ity of tablet 00:00: mouth in [place] the Medical morning. Branch lisinopriL 2023-0 Yes [id number] 10mg Take 1 U nivers 10 mg 1-09 tablet by ity of tablet 00:00: mouth in [place] 00 the Medical morning. Branch lisinopriL 2023-0 Yes [id number] 10mg Take 1 U nivers 10 mg 1-09 tablet by ity of tablet 00:00: mouth in [place] 00 the Medical morning. Branch lisinopriL 2023-0 Yes [id number] 10mg Take 1 U nivers 10 mg 1-09 tablet by ity of tablet 00:00: mouth in [place] 00 the Medical morning. Branch lisinopriL 2023-0 Yes [id number] 10mg Take 1 U nivers 10 mg 1-09 tablet by ity of tablet 00:00: mouth in [place] 00 the Medical morning. Branch lisinopriL 2023-0 Yes [id number] 10mg Take 1 U nivers 10 mg 1-09 tablet by ity of tablet 00:00: mouth in [place] 00 the Medical morning. Branch lisinopriL 2023-0 Yes [id number] 10mg Take 1 U nivers 10 mg 1-09 tablet by ity of tablet 00:00: mouth in [place] 00 the Medical morning. Branch lisinopriL 2023-0 Yes [id number] 10mg Take 1 U nivers 10 mg -09 tablet by ity of tablet 00:00: mouth in [place] the morning. Branch lisinopriL 0 Yes [id number] 10mg Take 1 U nivers 10 mg 1-09 tablet by ity of tablet 00:00: mouth in [place] the morning. Branch gabapentin 2022-0 Yes [id number] 300mg Take 1 Univers 300 mg -09 capsule by ity of capsule 00:00: mouth in [place] the morning Branch and 1 capsule at noon and 1 capsule in the evening. lisinopriL 0 Yes [id number] 10mg Take 1 U nivers 10 mg -09 tablet by ity of tablet 00:00: mouth in [place] the morning. Branch gabapentin 2022- No [id number] 300mg Take 1 Univers 300 mg 10-06 capsule by ity of capsule 00:00: 00:00 mouth in [place] 00 :00 the morning Branch and 1 capsule at noon and 1 capsule in the evening. HYDROcodone 2022- No 1{tbl} 1 tablet, Univers -acetaminop 10-02 Oral, ity of hen (NORCO) 04:45: 03:49 [place]CE, 1 [place] 10-325 mg 00 :00 dose, On Medica l tablet Thu10/01/22 Bran h tablet at 2245, Routine ketorolac 2022- No 60mg 60 mg, Unive rs (TORADOL) 10-02 Intramuscu ity of injection 04:30: 03:49 [place], ONCE, [place] 60 mg 00 :00 1 dose, On Medical Thu10/01/22 Branch at 2230, Routine ketorolac 2022-0 Yes [id number] 10mg Take 1 U nivers 10 mg 1-04 tablet by ity of tablet 00:00: mouth [place] 00 every 6 Medical (six) Branch hours as needed for Pain (scale 4-6). traMADoL 50 2022-0 Yes [id number] 50mg Take 1 Univ ers mg tablet 1-04 tablet by ity o f 00:00: mouth [place] 00 every 6 Medical (six) Branch hours as needed for Pain (scale 7-10). Indication s: acute pain methylPREDN 3-0 Yes [id number] Take by [facility] ISolone 4 1-04 mouth ity of mg tablets 00:00: [place]INSTRU [place] 00 CTIONS. Medical follow Branch package directions ketorolac 2023-0 Yes [id number] 10mg Take 1 U nivers 10 mg 1-04 tablet by ity of tablet 00:00: mouth [place] 00 every 6 Medical (six) Branch hours as needed for Pain (scale 4-6). traMADoL 50 3-0 Yes [id number] 50mg Take 1 Univ ers mg tablet 1-04 tablet by ity o f 00:00: mouth [place] 00 every 6 Medical (six) Branch hours as needed for Pain (scale 7-10). Indication s: acute pain methylPREDN 3-0 Yes [id number] Take by [facility] ISolone 4 1-04 mouth ity of mg tablets 00:00: SEE-INSTRU [place] 00 CTIONS. Medical follow Branch package directions ketorolac 3-0 Yes [id number] 10mg Take 1 U nivers 10 mg 1-04 tablet by ity of tablet 00:00: mouth [place] 00 every 6 Medical (six) Branch hours as needed for Pain (scale 4-6). traMADoL 50 2022-0 Yes [id number] 50mg Take 1 Univ ers mg tablet 1-04 tablet by ity o f 00:00: mouth [place] 00 every 6 Medical (six) Branch hours as needed for Pain (scale 7-10). Indication s: acute pain methylPREDN 3-0 Yes [id number] Take by [facility] ISolone 4 1-04 mouth ity of mg tablets 00:00: SEE-INSTRU [place] 00 CTIONS. Medical follow Branch package directions ketorolac 2023-0 Yes [id number] 10mg Take 1 U nivers 10 mg 1-04 tablet by ity of tablet 00:00: mouth [place] 00 every 6 Medical (six) Branch hours as needed for Pain (scale 4-6). traMADoL 50 3-0 Yes [id number] 50mg Take 1 Univ ers mg tablet 1-04 tablet by ity o f 00:00: mouth [place] 00 every 6 Medical (six) Branch hours as needed for Pain (scale 7-10). Indication s: acute pain methylPREDN 2023-0 Yes [id number] Take by [facility] ISolone 4 1-04 mouth ity of mg tablets 00:00: SEE-INSTRU [place] 00 CTIONS. Medical follow Branch package directions ketorolac 3-0 Yes [id number] 10mg Take 1 U nivers 10 mg 1-04 tablet by ity of tablet 00:00: mouth [place] 00 every 6 Medical (six) Branch hours as needed for Pain (scale 4-6). traMADoL 50 2022-0 Yes [id number] 50mg Take 1 Univ ers mg tablet 1-04 tablet by ity o f 00:00: mouth [place] 00 every 6 Medical (six) Branch hours as needed for Pain (scale 7-10). Indication s: acute pain methylPREDN 2022-0 Yes [id number] Take by [facility] ISolone 4 1-04 mouth ity of mg tablets 00:00: SEE-INSTRU [place] 00 CTIONS. Medical follow Branch package directions ketorolac 2022-0 Yes [id number] 10mg Take 1 U nivers 10 mg 1-04 tablet by ity of tablet 00:00: mouth [place] 00 every 6 Medical (six) Branch hours as needed for Pain (scale 4-6). traMADoL 50 2022-0 Yes [id number] 50mg Take 1 Univ ers mg tablet 1-04 tablet by ity o f 00:00: mouth [place] 00 every 6 Medical (six) Branch hours as needed for Pain (scale 7-10). Indication s: acute pain methylPREDN 2022-0 Yes [id number] Take by [facility] ISolone 4 1-04 mouth ity of mg tablets 00:00: SEE-INSTRU [place] 00 CTIONS. Medical follow Branch package directions ketorolac 3-0 Yes [id number] 10mg Take 1 U nivers 10 mg 1-04 tablet by ity of tablet 00:00: mouth [place] 00 every 6 Medical (six) Branch hours as needed for Pain (scale 4-6). traMADoL 50 2022-0 Yes [id number] 50mg Take 1 Univ ers mg tablet 1-04 tablet by ity o f 00:00: mouth [place] 00 every 6 Medical (six) Branch hours as needed for Pain (scale 7-10). Indication s: acute pain methylPREDN 3-0 Yes [id number] Take by [facility] ISolone 4 1-04 mouth ity of mg tablets 00:00: SEE-INSTRU [place] 00 CTIONS. Medical follow Branch package directions ketorolac 3-0 Yes [id number] 10mg Take 1 U nivers 10 mg 1-04 tablet by ity of tablet 00:00: mouth [place] 00 every 6 Medical (six) Branch hours as needed for Pain (scale 4-6). traMADoL 50 2022-0 Yes [id number] 50mg Take 1 Univ ers mg tablet 1-04 tablet by ity o f 00:00: mouth [place] 00 every 6 Medical (six) Branch hours as needed for Pain (scale 7-10). Indication s: acute pain methylPREDN 2022-0 Yes [id number] Take by [facility] ISolone 4 1-04 mouth ity of mg tablets 00:00: SEE-INSTRU [place] 00 CTIONS. Medical follow Branch package directions ketorolac 2022-0 Yes [id number] 10mg Take 1 U nivers 10 mg 1-04 tablet by ity of tablet 00:00: mouth [place] 00 every 6 Medical (six) Branch hours as needed for Pain (scale 4-6). traMADoL 50 2022-0 Yes [id number] 50mg Take 1 Univ ers mg tablet 1-04 tablet by ity o f 00:00: mouth [place] 00 every 6 Medical (six) Branch hours as needed for Pain (scale 7-10). Indication s: acute pain methylPREDN 3-0 Yes [id number] Take by [facility] ISolone 4 1-04 mouth ity of mg tablets 00:00: SEE-INSTRU [place] 00 CTIONS. Medical follow Branch package directions ketorolac 3-0 Yes [id number] 10mg Take 1 U nivers 10 mg 1-04 tablet by ity of tablet 00:00: mouth [place] 00 every 6 Medical (six) Branch hours as needed for Pain (scale 4-6). traMADoL 50 3-0 Yes [id number] 50mg Take 1 Univ ers mg tablet 1-04 tablet by ity o f 00:00: mouth [place] 00 every 6 Medical (six) Branch hours as needed for Pain (scale 7-10). Indication s: acute pain methylPREDN 3-0 Yes [id number] Take by [facility] ISolone 4 1-04 mouth ity of mg tablets 00:00: SEE-INSTRU [place] 00 CTIONS. Medical follow Branch package directions ketorolac 2023-0 Yes [id number] 10mg Take 1 U nivers 10 mg 1-04 tablet by ity of tablet 00:00: mouth [place] 00 every 6 Medical (six) Branch hours as needed for Pain (scale 4-6). traMADoL 50 3-0 Yes [id number] 50mg Take 1 Univ ers mg tablet 1-04 tablet by ity o f 00:00: mouth [place] 00 every 6 Medical (six) Branch hours as needed for Pain (scale 7-10). Indication s: acute pain methylPREDN 3-0 Yes [id number] Take by [facility] ISolone 4 1-04 mouth ity of mg tablets 00:00: SEE-INSTRU [place] 00 CTIONS. Medical follow Branch package directions ketorolac 3-0 Yes [id number] 10mg Take 1 U nivers 10 mg 1-04 tablet by ity of tablet 00:00: mouth [place] 00 every 6 Medical (six) Branch hours as needed for Pain (scale 4-6). traMADoL 50 2022-0 Yes [id number] 50mg Take 1 Univ ers mg tablet 1-04 tablet by ity o f 00:00: mouth [place] 00 every 6 Medical (six) Branch hours as needed for Pain (scale 7-10). Indication s: acute pain methylPREDN 3-0 Yes [id number] Take by [facility] ISolone 4 1-04 mouth ity of mg tablets 00:00: SEE-INSTRU [place] 00 CTIONS. Medical follow Branch package directions ketorolac 3-0 Yes [id number] 10mg Take 1 U nivers 10 mg 1-04 tablet by ity of tablet 00:00: mouth [place] 00 every 6 Medical (six) Branch hours as needed for Pain (scale 4-6). traMADoL 50 3-0 Yes [id number] 50mg Take 1 Univ ers mg tablet 1-04 tablet by ity o f 00:00: mouth [place] 00 every 6 Medical (six) Branch hours as needed for Pain (scale 7-10). Indication s: acute pain methylPREDN 3-0 Yes [id number] Take by [facility] ISolone 4 1-04 mouth ity of mg tablets 00:00: SEE-INSTRU [place] 00 CTIONS. Medical follow Branch package directions ketorolac 2023-0 Yes [id number] 10mg Take 1 U nivers 10 mg 1-04 tablet by ity of tablet 00:00: mouth [place] 00 every 6 Medical (six) Branch hours as needed for Pain (scale 4-6). traMADoL 50 3-0 Yes [id number] 50mg Take 1 Univ ers mg tablet 1-04 tablet by ity o f 00:00: mouth [place] 00 every 6 Medical (six) Branch hours as needed for Pain (scale 7-10). Indication s: acute pain methylPREDN 3-0 Yes [id number] Take by [facility] ISolone 4 1-04 mouth ity of mg tablets 00:00: SEE-INSTRU [place] 00 CTIONS. Medical follow Branch package directions ketorolac 3-0 Yes [id number] 10mg Take 1 U nivers 10 mg 1-04 tablet by ity of tablet 00:00: mouth [place] 00 every 6 Medical (six) Branch hours as needed for Pain (scale 4-6). traMADoL 50 2022-0 Yes [id number] 50mg Take 1 Univ ers mg tablet 1-04 tablet by ity o f 00:00: mouth [place] 00 every 6 Medical (six) Branch hours as needed for Pain (scale 7-10). Indication s: acute pain methylPREDN 3-0 Yes [id number] Take by [employer] ISolone 4 1-04 mouth ity of mg tablets 00:00: SEE-INSTRU [place] 00 CTIONS. Medical follow Branch package directions ketorolac 3-0 Yes [id number] 10mg Take 1 U nivers 10 mg 1-04 tablet by ity of tablet 00:00: mouth [place] 00 every 6 Medical (six) Branch hours as needed for Pain (scale 4-6). traMADoL 50 3-0 Yes [id number] 50mg Take 1 Univ ers mg tablet 1-04 tablet by ity o f 00:00: mouth [place] 00 every 6 Medical (six) Branch hours as needed for Pain (scale 7-10). Indication s: acute pain methylPREDN 3-0 Yes [id number] Take by [facility] ISolone 4 1-04 mouth ity of mg tablets 00:00: SEE-INSTRU [place] 00 CTIONS. Medical follow Branch package directions ketorolac 2023-0 Yes [id number] 10mg Take 1 U nivers 10 mg 1-04 tablet by ity of tablet 00:00: mouth [place] 00 every 6 Medical (six) Branch hours as needed for Pain (scale 4-6). traMADoL 50 3-0 Yes [id number] 50mg Take 1 Univ ers mg tablet 1-04 tablet by ity o f 00:00: mouth [place] 00 every 6 Medical (six) Branch hours as needed for Pain (scale 7-10). Indication s: acute pain methylPREDN 2023-0 Yes [id number] Take by [facility] ISolone 4 1-04 mouth ity of mg tablets 00:00: SEE-INSTRU [place] 00 CTIONS. Medical follow Branch package directions ketorolac 2023-0 Yes [id number] 10mg Take 1 U nivers 10 mg 1-04 tablet by ity of tablet 00:00: mouth [place] 00 every 6 Medical (six) Branch hours as needed for Pain (scale 4-6). traMADoL 50 3-0 Yes [id number] 50mg Take 1 Univ ers mg tablet 1-04 tablet by ity o f 00:00: mouth [place] 00 every 6 Medical (six) Branch hours as needed for Pain (scale 7-10). Indication s: acute pain methylPREDN 3-0 Yes [id number] Take by [facility] ISolone 4 1-04 mouth ity of mg tablets 00:00: SEE-INSTRU [place] 00 CTIONS. Medical follow Branch package directions ketorolac 3-0 Yes [id number] 10mg Take 1 U nivers 10 mg 1-04 tablet by ity of tablet 00:00: mouth [place] 00 every 6 Medical (six) Branch hours as needed for Pain (scale 4-6). traMADoL 50 3-0 Yes [id number] 50mg Take 1 Univ ers mg tablet 1-04 tablet by ity o f 00:00: mouth [place] 00 every 6 Medical (six) Branch hours as needed for Pain (scale 7-10). Indication s: acute pain methylPREDN 2023-0 Yes [id number] Take by [facility] ISolone 4 1-04 mouth ity of mg tablets 00:00: SEE-INSTRU [place] 00 CTIONS. Medical follow Branch package directions ketorolac 2023-0 Yes [id number] 10mg Take 1 U nivers 10 mg 1-04 tablet by ity of tablet 00:00: mouth [place] 00 every 6 Medical (six) Branch hours as needed for Pain (scale 4-6). traMADoL 50 3-0 Yes [id number] 50mg Take 1 Univ ers mg tablet 1-04 tablet by ity o f 00:00: mouth [place] 00 every 6 Medical (six) Branch hours as needed for Pain (scale 7-10). Indication s: acute pain methylPREDN 3-0 Yes [id number] Take by [facility] ISolone 4 1-04 mouth ity of mg tablets 00:00: SEE-INSTRU [place] 00 CTIONS. Medical follow Branch package directions ketorolac 3-0 Yes [id number] 10mg Take 1 U nivers 10 mg 1-04 tablet by ity of tablet 00:00: mouth [place] 00 every 6 Medical (six) Branch hours as needed for Pain (scale 4-6). traMADoL 50 2022-0 Yes [id number] 50mg Take 1 Univ ers mg tablet 1-04 tablet by ity o f 00:00: mouth [place] 00 every 6 Medical (six) Branch hours as needed for Pain (scale 7-10). Indication s: acute pain methylPREDN 2022-0 Yes [id number] Take by [facility] ISolone 4 1-04 mouth ity of mg tablets 00:00: SEE-INSTRU [place] 00 CTIONS. Medical follow Branch package directions ketorolac 3-0 Yes [id number] 10mg Take 1 U nivers 10 mg 1-04 tablet by ity of tablet 00:00: mouth [place] 00 every 6 Medical (six) Branch hours as needed for Pain (scale 4-6). traMADoL 50 2022-0 Yes [id number] 50mg Take 1 Univ ers mg tablet 1-04 tablet by ity o f 00:00: mouth [place] 00 every 6 Medical (six) Branch hours as needed for Pain (scale 7-10). Indication s: acute pain methylPREDN 3-0 Yes [id number] Take by [facility] ISolone 4 1-04 mouth ity of mg tablets 00:00: SEE-INSTRU [place] 00 CTIONS. Medical follow Branch package directions ketorolac 3-0 Yes [id number] 10mg Take 1 U nivers 10 mg 1-04 tablet by ity of tablet 00:00: mouth [place] 00 every 6 Medical (six) Branch hours as needed for Pain (scale 4-6). traMADoL 50 3-0 Yes [id number] 50mg Take 1 Univ ers mg tablet 1-04 tablet by ity o f 00:00: mouth [place] 00 every 6 Medical (six) Branch hours as needed for Pain (scale 7-10). Indication s: acute pain methylPREDN 3-0 Yes [id number] Take by [facility] ISolone 4 1-04 mouth ity of mg tablets 00:00: SEE-INSTRU [place] 00 CTIONS. Medical follow Branch package directions ketorolac 2023-0 Yes [id number] 10mg Take 1 U nivers 10 mg 1-04 tablet by ity of tablet 00:00: mouth [place] 00 every 6 Medical (six) Branch hours as needed for Pain (scale 4-6). traMADoL 50 2022-0 Yes [id number] 50mg Take 1 Univ ers mg tablet 1-04 tablet by ity o f 00:00: mouth [place] 00 every 6 Medical (six) Branch hours as needed for Pain (scale 7-10). Indication s: acute pain methylPREDN 3-0 Yes [id number] Take by [facility] ISolone 4 1-04 mouth ity of mg tablets 00:00: SEE-INSTRU [place] 00 CTIONS. Medical follow Branch package directions ketorolac 3-0 Yes [id number] 10mg Take 1 U nivers 10 mg 1-04 tablet by ity of tablet 00:00: mouth [place] 00 every 6 Medical (six) Branch hours as needed for Pain (scale 4-6). traMADoL 50 2022-0 Yes [id number] 50mg Take 1 [facility] ers mg tablet 1-04 tablet by ity o f 00:00: mouth [place] 00 every 6 Medical (six) Branch hours as needed for Pain (scale 7-10). Indication s: acute pain methylPREDN 3-0 Yes [id number] Take by [facility] ISolone 4 1-04 mouth ity of mg tablets 00:00: SEE-INSTRU [place] 00 CTIONS. Medical follow Branch package directions ketorolac 2023-0 Yes [id number] 10mg Take 1 U nivers 10 mg 1-04 tablet by ity of tablet 00:00: mouth [place] 00 every 6 Medical (six) Branch hours as needed for Pain (scale 4-6). traMADoL 50 3-0 Yes [id number] 50mg Take 1 Univ ers mg tablet 1-04 tablet by ity o f 00:00: mouth [place] 00 every 6 Medical (six) Branch hours as needed for Pain (scale 7-10). Indication s: acute pain methylPREDN 2023-0 Yes [id number] Take by [facility] ISolone 4 1-04 mouth ity of mg tablets 00:00: SEE-INSTRU [place] 00 CTIONS. Medical follow Branch package directions ketorolac 2023-0 Yes [id number] 10mg Take 1 U nivers 10 mg 1-04 tablet by ity of tablet 00:00: mouth [place] 00 every 6 Medical (six) Branch hours as needed for Pain (scale 4-6). traMADoL 50 3-0 Yes [id number] 50mg Take 1 Univ ers mg tablet 1-04 tablet by ity o f 00:00: mouth [place] 00 every 6 Medical (six) Branch hours as needed for Pain (scale 7-10). Indication s: acute pain methylPREDN 3-0 Yes [id number] Take by [facility] ISolone 4 1-04 mouth ity of mg tablets 00:00: SEE-INSTRU [place] 00 CTIONS. Medical follow Branch package directions ketorolac 2023-0 Yes [id number] 10mg Take 1 U nivers 10 mg 1-04 tablet by ity of tablet 00:00: mouth [place] 00 every 6 Medical (six) Branch hours as needed for Pain (scale 4-6). traMADoL 50 3-0 Yes [id number] 50mg Take 1 Univ ers mg tablet 1-04 tablet by ity o f 00:00: mouth [place] 00 every 6 Medical (six) Branch hours as needed for Pain (scale 7-10). Indication s: acute pain methylPREDN 3-0 Yes [id number] Take by [facility] ISolone 4 1-04 mouth ity of mg tablets 00:00: SEE-INSTRU [place] 00 CTIONS. Medical follow Branch package directions ketorolac 2023-0 Yes [id number] 10mg Take 1 U nivers 10 mg 1-04 tablet by ity of tablet 00:00: mouth [place] 00 every 6 Medical (six) Branch hours as needed for Pain (scale 4-6). traMADoL 50 3-0 Yes [id number] 50mg Take 1 Univ ers mg tablet 1-04 tablet by ity o f 00:00: mouth [place] 00 every 6 Medical (six) Branch hours as needed for Pain (scale 7-10). Indication s: acute pain methylPREDN 2022-0 Yes [id number] Take by [facility] ISolone 4 1-04 mouth ity of mg tablets 00:00: SEE-INSTRU [place] 00 CTIONS. Medical follow Branch package directions NaCl 0.9% 2021- No 1000mL at 999 Uni vers (NS) bolus 06-19 09-22 mL/hr, ity of infusion 01:15: 02:59 1,000 mL, N[place] as 1,000 mL 00 :00 IV Medical Infusion, Branch ONCE, 1 dose, On Thu06/18/22 at 2015, MARCIANO cyclobenzap 2021-0 Yes [id number] 10mg Take 1 Univers rine 10 mg 9-21 tablet by ity of tablet 00:00: mouth (three) Medical times Branch daily with meals as needed for Muscle Spasms. cyclobenzap 2021-0 Yes [id number] 10mg Take 1 [facility] rine 10 mg 9-21 tablet by ity of tablet 00:00: mouth (three) Medical times Branch daily with meals as needed for Muscle Spasms. cyclobenzap 2021-0 Yes [id number] 10mg Take 1 [facility] rine 10 mg 9-21 tablet by ity of tablet 00:00: mouth (three) Medical times Branch daily with meals as needed for Muscle Spasms. cyclobenzap 2021-0 Yes [id number] 10mg Take 1 [facility] rine 10 mg 9-21 tablet by ity of tablet 00:00: mouth (three) Medical times Branch daily with meals as needed for Muscle Spasms. cyclobenzap 2021-0 Yes [id number] 10mg Take 1 [facility] rine 10 mg 9-21 tablet by ity of tablet 00:00: mouth 3 (three) Medical times Branch daily with meals as needed for Muscle Spasms. cyclobenzap 2021-0 Yes [id number] 10mg Take 1 [facility] rine 10 mg 9-21 tablet by ity of tablet 00:00: mouth 3 (three) Medical times Branch daily with meals as needed for Muscle Spasms. cyclobenzap 2021-0 Yes [id number] 10mg Take 1 [facility] rine 10 mg 9-21 tablet by ity of tablet 00:00: mouth 3 [place] 00 (three) Medical times Branch daily with meals as needed for Muscle Spasms. cyclobenzap 2022-0 Yes [id number] 10mg Take 1 [facility] rine 10 mg 9-21 tablet by ity of tablet 00:00: mouth (three) Medical times Branch daily with meals as needed for Muscle Spasms. cyclobenzap 2022-0 Yes [id number] 10mg Take 1 [facility] rine 10 mg 9-21 tablet by ity of tablet 00:00: mouth (three) Medical times Branch daily with meals as needed for Muscle Spasms. cyclobenzap 2022-0 Yes [id number] 10mg Take 1 [facility] rine 10 mg 9-21 tablet by ity of tablet 00:00: mouth (three) Medical times Branch daily with meals as needed for Muscle Spasms. cyclobenzap 2022-0 Yes [id number] 10mg Take 1 [facility] rine 10 mg 9-21 tablet by ity of tablet 00:00: mouth (three) Medical times Branch daily with meals as needed for Muscle Spasms. cyclobenzap 2022-0 Yes [id number] 10mg Take 1 [facility] rine 10 mg 9-21 tablet by ity of tablet 00:00: mouth (three) Medical times Branch daily with meals as needed for Muscle Spasms. cyclobenzap 2022-0 Yes [id number] 10mg Take 1 [facility] rine 10 mg 9-21 tablet by ity of tablet 00:00: mouth (three) Medical times Branch daily with meals as needed for Muscle Spasms. cyclobenzap 2022-0 Yes [id number] 10mg Take 1 [facility] rine 10 mg 9-21 tablet by ity of tablet 00:00: mouth (three) Medical times Branch daily with meals as needed for Muscle Spasms. cyclobenzap 2022-0 Yes [id number] 10mg Take 1 [facility] rine 10 mg 9-21 tablet by ity of tablet 00:00: mouth (three) Medical times Branch daily with meals as needed for Muscle Spasms. cyclobenzap 2022-0 Yes [id number] 10mg Take 1 [facility] rine 10 mg 9-21 tablet by ity of tablet 00:00: mouth (three) Medical times Branch daily with meals as needed for Muscle Spasms. ibuprofen 2021-0 Yes [id number] 800mg Take 1 Univers 800 mg 9-21 tablet by ity of tablet 00:00: mouth [place] 00 every 8 Medical (eight) Branch hours as needed for Pain (scale 4-6). cyclobenzap 2021-0 Yes [id number] 10mg Take 1 [facility] rine 10 mg 9-21 tablet by ity of tablet 00:00: mouth 3 [place] 00 (three) Medical times Branch daily with meals as needed for Muscle Spasms. cyclobenzap 2021-0 Yes [id number] 10mg Take 1 Univers rine 10 mg 9-21 tablet by ity of tablet 00:00: mouth 3 [place] 00 (three) Medical times Branch daily with meals as needed for Muscle Spasms. cyclobenzap 2021-0 2022- No [id number] 10mg Take 1 Univers rine 10 mg 9-21 01-23 tablet by ity of tablet 00:00: 00:00 mouth 3 [place] 00 :00 (three) Medical times Branch daily with meals as needed for Muscle Spasms. ibuprofen 2021-0 2022- No [id number] 800mg Take 1 Univers 800 mg 9-21 01-04 tablet by ity of tablet 00:00: 00:00 mouth [place] 00 :00 every 8 Medical (eight) Branch hours as needed for Pain (scale 4-6). sucralfate 2021-0 2021- No [id number] 1g Take 1 Univers 1 gram 9-21 10-06 tablet by ity of tablet 00:00: 04:59 mouth [place] 00 :00 before Medical meals and Branch at bedtime for 14 days. Vital Signs Vital Name Observation Time Observation Value Comments Source Systolic blood 2022-11-06 19:21:00 117 mm[Hg] [facility] Diastolic blood 2022-11-06 19:21:00 76 mm[Hg] [facility] Heart rate 2022-11-06 19:21:00 92 /min [facility] Body temperature 2022-11-06 19:21:00 [facility].78 [facility] 2022-11-06 19:21:00 175.3 cm [facility] Body weight 2022-11-06 19:21:00 121.7 kg [facility] BMI 2022-11-06 19:21:00 39.62 kg/m2 [facility] Systolic blood 2022-10-09 21:02:00 117 mm[Hg] [facility]iver [facility] [place] [facility] Diastolic blood 2022-10-09 21:02:00 74 mm[Hg] Unive [facility] Heart rate 2022-10-09 21:02:00 108 /min [facility] Body temperature 2022-10-09 21:02:00 36.33 [facility] [facility] Body height 2022-10-09 21:02:00 175.3 cm [facility] Body weight 2022-10-09 21:02:00 121.11 kg [facility] BMI 2022-10-09 21:02:00 39.43 kg/m2 [facility] Body temperature 2022-10-07 22:13:00 36.56 [facility] Body height 2022-10-07 22:13:00 175.3 cm [facility] Body weight 2022-10-07 22:13:00 117.935 kg [facility] BMI 2022-10-07 22:13:00 38.40 kg/m2 [facility] Systolic blood 2022-10-06 15:04:00 154 mm[Hg] Univer [facility] Diastolic blood 2022-10-06 15:04:00 113 mm[Hg] Unive [facility] Heart rate 2022-10-06 14:49:00 79 /min [facility] Body temperature 2022-10-06 14:49:00 36.67 [facility] [facility] Body height 2022-10-06 14:49:00 175.3 cm [facility] Body weight 2022-10-06 14:49:00 118.389 kg [facility] BMI 2022-10-06 14:49:00 38.54 kg/m2 [facility] Systolic blood 2022-10-02 04:33:07 137 mm[Hg] [facility] Diastolic blood 2022-10-02 04:33:07 74 mm[Hg] Un[facility] Heart rate 2022-10-02 04:33:07 116 /min [facility] Body temperature 2022-10-02 04:33:07 36.89 [place] [facility] Respiratory rate 2022-10-02 04:33:07 17 /min Univ ersity of [facility] Oxygen saturation in 2022-10-02 04:33:07 95 /min [facility] of Arterial blood by [facility] Pulse oximetry Branch Body height 2022-10-02 03:02:00 175.3 cm Universi ty [facility] Body weight 2022-10-02 03:02:[facility] BMI 2022-10-02 03:02:00 33.97 [facility] 2022-06-19 02:42:00 134 mm[Hg] Univer [facility]ity of [facility] Diastolic blood 2022-06-19 02:42:00 79 mm[Hg] Unive rsity of pressure [facility] Heart rate 2022-06-19 02:42:00 73 /min Universi ty [facility] Body temperature 2022-06-19 02:42:00 36.56 [facility] Respiratory rate 2022-06-19 02:42:00 18 /min [facility] Oxygen saturation in 2022-06-19 02:42:00 96 /min [facility] Arterial blood by [facility] Pulse oximetry Branch Body weight 2022-06-18 22:19:00 104.327 kg [facility] Procedures Procedure Date / Time Performing Clinician Source Performed CT CERVICAL SPINE WO 2022-11-12 20:31:51 Jesus Wood [facility] CONTRAST [facility] MR CERVICAL SPINE WO 2022-10-16 17:31:52 Isa [facility] 2022-10-09 06:01:00 Doctor Unassigned, No [facility] Name Medical Branch PATIENT QUESTIONNAIRE 2022-10-07 06:01:00 Doctor Unassigned, No [facility] NOTICE OF PRIVACY 2022-10-02 02:50:31 Doctor Unassigned, No [facility] PRACTICES Name [facility] CONSENT/REFUSAL FOR 2022-10-02 02:49:50 [facility] AND TREATMENT Name [facility] URINALYSIS 2022-06-19 00:45:00 Suleman Miller [facility] COMP. METABOLIC PANEL 2022-06-19 00:23:00 Suleman Miller [facility] ([id number]) [facility] CBC WITH DIFF 2022-06-19 00:23:00 Suleman Miller [facility] CT ABDOMEN PELVIS WO 2022-06-19 00:04:00 Suleman Miller [facility] Encounters Start End Encounter Admission Attending Care Care Encounter Source Date/Time Date/Time Type Type Clinicians Facility Department ID 2022-11-26 2022-11-26 [facility] [id number] Univers 13:45:00 13:45:00 YUE [facility] 2022-11-19 2022-11-19 Telephone [facility] 1.2.840.114 [id number] Univers 00:00:00 00:00:00 , Mendez SPECIALTY [id number] [place] [phone] Va rupal DELPHIDee Dee [address] [place] [address] 2022-11-19 2022-11-19 Telephone [facility] [id number] Univers 00:00:00 00:00:00 , [place] SPECIALTY 350.1.13.10 [place] [phone] Va rupal [address] 2022-11-12 2022-11-12 [facility] [id number] Univers 14:02:06 23:59:00 , [facility] 2022-11-12 2022-11-12 Formerly named [facility] 1.2.840.114 [id number] Univers 14:02:06 23:59:00 Encounter , Mendez [place] [id number] ity of [place] 4.2.7.2.686 [facility] [phone] [address] 2022-11-07 2022-11-07 Telephone [facility] 1.2.840.114 [id number] Univers 00:00:00 00:00:00 , M[place] SPECIALTY 350.1.13.10 ity of CARE 4.2.7.2.686 [facility] AT [phone] Va rupal BROWNING [address] [place] [address] 2022-11-06 2022-11-06 Outpatient R [facility] [id number] Univers 13:30:00 14:32:12 , MENDEZ ity of [facility] 2022-11-06 2022-11-06 Office [facility] 1.2.840.114 [id number] Univers 13:30:00 14:32:12 Visit , [place] SPECIALTY 350.1.13.10 ity of CARE 4.2.7.[address] [place] [address] AT [phone] Va rupal BROWNING [address] [place] [address] 2022-11-06 2022-11-06 Letter [facility] 1.2.840.114 [id number] Univers 00:00:00 00:00:00 (Out) , Mendez SPECIALTY 350.1.13.10 ity of CARE 4.2.7.2.686 [facility] AT [phone] Va rupal BROWNING [address] [place] [address] 2022-10-20 2022-10-20 Telephone [facility] 1.2.840.114 [id number] Univers 00:00:00 00:00:00 , Mendez SPECIALTY 350.1.13.10 ity of CARE 4.2.7.2.686 [facility] AT [phone] Va rupal BROWNING [address] [place] [address] 2022-10-17 2022-10-17 [facility]phone [facility] [id number] Univers 00:00:00 00:00:00 [facility] 350.1.13.10 it y of [place] 4.2.7.2.686 Nitin as HAYLEY?BLEA [phone] Va dicrigoberto KNEY [address] [facility] 2022-10-16 2022-10-16 Outpatient R [facility] [id number] Univers 10:24:37 23:59:00 , MENDEZ ity [facility] 2022-10-16 2022-10-16 Hospital [facility] 1.2.840.114 [id number] Univers 10:24:37 23:59:00 Encounter , Mendez CHAUDHARI 350.1.13.10 ity of [facility] 4.2.7.2.[place] [phone] [facility] [address] 2022-10-16 2022-10-16 Refana rosa [facility] 1.2.840.114 [id number] Univers 00:00:00 00:00:00 Cas CHAUDHARI 350.1.13.10 i ty of [facility] 4.2.7.2.[address] [place] [address] [facility] [phone] Va zakiarigoberto MELECIO 044 [facility] 2022-10-09 2022-10-09 Outpatient R [facility] [id number] Univers 14:45:00 16:15:12 , MENDEZ ity [facility] 2022-10-09 2022-10-09 Office [facility] 1.2.840.114 [id number] Univers 14:45:00 16:15:12 Visit , [place] SPECIALTY 350.1.13.10 it[place] 4[place]2.7.2.686 [place] AT [phone] Va dicrigoberto BROWNING 198 [facility] 2022-10-09 2022-10-09 Orders Doctor DON 1.2.840.114 [id number] Univers 00:00:00 00:00:00 Only Unassigned, VINEET 350.1.13.10 ity of [place] [facility] 4.2.7.2.686 Nitin as [phone] [facility] [address] 2022-10-09 2022-10-09 Telephone [facility] 1.2.840.114 [id number] Univers 00:00:00 00:00:00 , Mendez SPECIALTY 350.1.13.10 it[place] [phone] Va rupal BROWNING 198 [facility] 2022-10-07 2022-10-07 [facility] [id number] Univers 16:15:52 23:59:00 Encounter Vida SPECIALTY 350.1.13.10 ity of [place] [phone] Va rupal BROWNING 809 [facility] 2022-10-07 2022-10-07 [facility] [id number] Univers 16:15:47 23:59:00 Encounter Vida SPECIALTY 350.1.13.10 ity [place] [phone] Va rupal BROWNING 809 [facility] 2022-10-07 2022-10-07 [facility] [id number] Univers 16:15:47 23:59:00 [facility] 2022-10-07 2022-10-07 Office [facility] 1.2.840.114 [id number] Univers 16:10:00 17:35:01 Visit Vida SPECIALTY 350.1.13.10 ity of [place] [phone] Va rupal BROWNING 198 [facility] 2022-10-06 2022-10-06 Office Aleks Casey [facility] 1.2.840.11 [id number] Univers 09:00:00 09:15:00 Visit Cas Amador [facility] 350.1.13 .10 ity of [place] 4.2.7.2.686 Nitin as HAYLEY?BLEA [phone] Va rupal OCHOA [address] [facility] 2022-10-06 2022-10-06 Outpatient R PERRY [facility] [id number] Univers 09:00:00 09:00:00 CAS aburto [facility] 2022-10-01 2022-10-01 Emergency [facility] [id number] Univers 21:09:00 22:37:00 TEODORO [facility] 2022-10-01 2022-10-01 Emergency [facility] [id number] Univers 21:09:00 22:37:00 Teodoroanne marie CHAUDHARI 350.1.13.10 i ty of [facility] 4.2.7.2.[place] [phone] [facility] [address] 2022-09-24 2022-09-24 Outpatient FOG_Jaime AOSM AOSM [id number] Rozina 00:00:00 00:00:00 son_Violetta [id number] Orth ope [facility] 2022-06-18 2022-06-18 Emergency [facility] E[facility] [id number] Univers 17:20:00 22:23:00 SULEMAN [facility] 2022-06-18 2022-06-18 Emergency Bob, TRAUMA 1.2.840.114 [id number] Univers 17:20:00 22:23:00 Suleman B [place] 350.1.13.10 it [place].7.2.[place] [phone] [facility] [address] 2021-11-23 2021-11-23 Outpatient Marla FRITZ [facility] [id number] Univers 16:30:00 16:30:00 DON baurto [facility] 2020-11-30 2020-11-30 Outpatient Marla MCGEE [facility] [id number] Univers 17:20:00 17:20:00 JAMILAH [facility] 2020-11-30 2020-11-30 Laboratory Lab, Adc Fam Pob I [facility] 1.2. 840.114 [id number] Univers 16:56:52 17:16:52 Only Jamilah Mcgee 350.1.13.10 ity of [place] 4.2.7.2.686 Nitin as Professio [phone] Va dical [facility] [address] 2020-11-30 2020-11-30 Letter Doctor DON 1.2.840.114 [id number] Univers 00:00:00 00:00:00 (Out) Unassigned, VINEET 350.1.13.10 ity of [place] [facility] 4.2.7.2.686 Nitin as [phone] [facility] [address] Results This patient has no known results.
[2022-11-21] MEDS ORDERED: LIDOCAINE 1% W/EPI 1:100,000 10 ML VIAL ONE (02:20)
--- NOTE | 2022-11-21 02:51 | EDPHYS ---
Physician Documentation [facility] Name: Christo Mcknight Age: 37 yrs Sex: Male : 1985 Arrival Date: 11/20/2022 Time: 23:59 Bed 7 Private MD: ED Physician Ramon Smith HPI: 11/21 00:15 This 37 yrs old Male presents to ER via EMS with complaints of Laceration To Hand. cp 00:15 The patient has a laceration occurred at home, The injury was accidental. The cp laceration(s) is(are) located on the right hand. Onset: The symptoms/episode began/occurred today. Associated signs and symptoms: The patient has no apparent associated signs or symptoms. 00:15 Patient reports lacerations to right hand. Unsure of cause. cp Historical: - PMHx: 00:02 ACUTE MANIC DEPPRESIION; Bipolar disorder; Schizophrenia; kd3 - Immunization history:: Adult Immunizations up to date. - Social history:: Smoking status: unknown. ROS: 00:20 Constitutional: Negative for body aches, chills, fever. cp 00:20 Eyes: Negative for injury, pain, redness, and discharge. cp 00:20 Cardiovascular: Negative for chest pain. 00:20 Respiratory: Negative for cough, shortness of breath, wheezing. 00:20 Abdomen/GI: Negative for abdominal pain, vomiting, diarrhea, constipation. 00:20 Skin: Positive for laceration(s), of the right hand. 00:20 Neuro: Negative for altered mental status. 00:20 All other systems are negative. Exam: 00:25 Constitutional: The patient appears in no acute distress, alert, awake, cp non-diaphoretic, non-toxic, well developed, well nourished, obese. 00:25 Head/Face: Normocephalic, atraumatic. cp 00:25 Neck: ROM/movement: is normal, is supple, without pain, no range of motions limitations. 00:25 Chest/axilla: Inspection: normal, Palpation: is normal, no crepitus, no tenderness. 00:25 Cardiovascular: Rate: tachycardic, Rhythm: regular. 00:25 Respiratory: the patient does not display signs of respiratory distress, Respirations: normal, no use of accessory muscles, no retractions, labored breathing, is not present, Breath sounds: are clear throughout, no decreased breath sounds, no stridor, no wheezing. 00:25 Abdomen/GI: Inspection: obese Palpation: abdomen is soft and non-tender, in all quadrants. 00:25 Back: pain, is absent, ROM is normal. 00:25 Skin: injury, laceration(s), of the right palm of hand hyperthenar eminence, that can be described as clean, no foreign body, linear, with mild bleeding, superficial smaller lacerations noted lake side proximal phalanx right fifth and fourth fingers. 00:25 Neuro: Orientation: to person, place \T\ time. Mentation: is normal, Motor: moves all fours, strength is normal, Sensation: no obvious gross deficits. Vital Signs: 11/20 23:59 BP 133 / 82; Pulse 105; Resp 19; Temp 98.6(O); Pulse Ox 94% ; Weight 121.56 kg; Height kd3 5 ft. 9 in. (175.26 cm); Pain 0/10; 11/21 02:09 BP 138 / 81; Pulse 105; Resp 19; Pulse Ox 99% on R/A; kd3 03:15 BP 136 / 71; Pulse 100; Resp 19; Pulse Ox 99% on R/A; kd3 11/20 23:59 Body Mass Index 39.58 (121.56 kg, 175.26 cm) kd3 Laceration: 03:00 Wound Repair of 3.5cm ( 1.4in ) subcutaneous laceration to right hand lake side cp hyperthenar eminence. Linear shaped.. Distal neuro/vascular/tendon intact. Anesthesia: Wound infiltrated with 4 mls of Lido/Marcaine. Wound prep: Moderate cleansing by me, Wound irrigation by me. Skin closed with 5 4-0 Prolene using interrupted sutures and sterile technique. Dressed with Bacitracin, 4x4's. Patient tolerated well. MDM: 00:02 Patient medically screened. cp 00:20 Differential diagnosis: superficial laceration, tendon injury, vascular injury, open cp fracture. 02:50 Data reviewed: vital signs, nurses notes, radiologic studies, plain films. cp 02:50 Counseling: I had a detailed discussion with the patient and/or guardian regarding: the cp historical points, exam findings, and any diagnostic results supporting the discharge/admit diagnosis, radiology results, the need for outpatient follow up, a family practitioner, to return to the emergency department if symptoms worsen or persist or if there are any questions or concerns that arise at home. Response to treatment: the patient's symptoms have markedly improved after treatment, and as a result, I will discharge patient. ED course: Wounds cleaned and dressed. Patient refuses suturing of smaller lacerations. Will discharge to home for continued monitoring with wound care instructions. 11/21 00:05 Order name: XRAY Hand RIGHT 3 View cp 11/21 02:49 Order name: Splint - Thumb Spica; Complete Time: 03:03 cp 11/21 02:49 Order name: Wound dressing; Complete Time: 03:03 cp Administered Medications: 00:08 Not Given (Patient Refused; updated about 8-9 months ago): Tetanus-Diphtheria Toxoid kd3 Adult 0.5 ml IM once; Provide Vaccine Information Statement (VIS). Disposition Summary: 11/21/22 02:50 Discharge Ordered Location: Home cp Problem: new cp Symptoms: have improved cp Condition: Stable cp Diagnosis - Laceration without foreign body of right hand, initial encounter cp Followup: cp - With: Private Physician - When: 10 - 14 days - Reason: Staple/Suture removal Discharge Instructions: - Discharge Summary Sheet cp - Laceration Care, Adult cp - Sutured Wound Care cp Forms: - Medication Reconciliation Form cp - Thank You Letter cp - Antibiotic Education cp - Prescription Opioid Use cp Prescriptions: - Cephalexin 500 mg Oral Capsule - take 1 capsule by ORAL route every 8 hours for 10 days; 30 capsule; Refills: 0, cp Product Selection Permitted - Ibuprofen 800 mg Oral Tablet - take 1 tablet by ORAL route every 8 hours As needed take with food; 30 tablet; cp Refills: 0, Product Selection Permitted Addendum: 11/23/2022 07:43 Co-signature as Attending Physician, Ramon Smith MD I reviewed the patient's care r n provided by the Advanced Practice Provider and agree with the diagnosis and treatment plan. Signatures: Dispatcher [employer] Ramon Capellan MD MD rn Page, Corey, PA PA cp Doucette, Kyli, RN RN kd3
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
[2022-11-21 04:11] VITALS: TEMP 98.6
[2022-11-21 04:12] VITALS: O2SAT 99
[2022-11-21 04:13] VITALS: BP 136/71
--- NOTE | 2022-11-21 21:41 | RAD REPORT ---
EXAM DESCRIPTION: RAD - Hand Right 3 View - 11/21/2022 12:35 am RAD - Hand Right 3 View - 11/21/2022 12:35 am CLINICAL HISTORY: Pain COMPARISON: None. FINDINGS: Three views of the right hand No fracture is identified. There is no dislocation or periosteal reaction noted. No foreign body or other soft tissue abnormalit y. IMPRESSION: Negative right hand examination.
== END 2022-11-21 03:15 | disposition home or self-care (01) ==
LOC: ER 23:58
PROC: 0HQFXZZ Repair Right Hand Skin, External Approach (ICD-10-PCS; principal; 2022-11-21)
DX: S61.411A Laceration without foreign body of right hand, initial encounter (principal)
CPT/HCPCS: 99283

== ENCOUNTER → 2023-11-04 | Emergency (ER) | payer OTHER ==
[~2023-11-04] MED LIST: CIPROFLOXACIN HCL 500 MG TAB ONE; SMZ./TMP. 800/160 MG TABLET ONE
--- OUTSIDE RECORDS SUMMARY | 2023-11-04 09:41 | XMS REPORT | Continuity of Care Document ---
Author Name Unknown Address [address] [facility] [address] [place] [id number] [facility] Address [address] [facility] [address] [place] [address] Care Team Providers Care Grab Jack Man Name Role Phone ALEKS CASEY Primary Care Physician Unavailab JOSELYN Schneider Attending Clinician Unavailab MENDEZ Don Attending Clinician Unavailab LENARD Lopes Attending Clinician Unavailable YUE FIGUEROA Attending Clinician UnavailJesse Victoria PTA Attending Clinician UnavailYue Davies MD Attending Clinician [phone] Aleks Casey MD Attending Clinician [phone] Teri Montero PTA Attending Clinician Unavail able Doctor Unassigned, [place] Attending Clinician U Rabia Fairbanks PTA Attending Clinician UnaMendez Meneses MD Attending Clinician [phone] Neda Saldana PT Attending Clinician Un available Cas Alcaraz MD Attending Clinician + [phone] Vida Easley MD Attending Clinician [phone]- [phone] VIDA EASLEY Attending Clinician CAS Hartman Attending Clinician TEODORO Villela Attending Clinician Unavailable Teodoro Ortiz Attending Clinician [phone] Cory Attending Clinician Unavail able SULEMAN ROJAS Attending Clinician Unavailable Suleman Bhakta Attending Clinician [phone] DON FRITZ Attending Clinician Unavailable JAMILAH MCGEE Attending Clinician Unavailable Lab, Adc Fam Pob I Attending Clinician Unavailab Jamilah Alcocer Attending Clinician [phone] THELMA BRADYYA Admitting Clinician Unavailab scar Mullins_Al_ Admitting Clinician Unavail able SULEMAN ROJAS Admitting Clinician Unavailable Payers Payer Name Policy Type Policy Number Effective Date Expirati on Date Source [employer] P[employer]ED GENERIC [id number] 2022 00:00:00 MEDICARE PART A \T\ B [id number] 2018 00:00:00 Problems Condition Name Condition Details Condition Category Status Onset Date Resolution Date Last Treatment Date Treating Clinician Comments Source No known active problems No known active problems Disease [facility] Allergies, Adverse Reactions, Alerts Allergy Name Allergy Type Status Severity Reaction(s) Onset Date Inactive Date Treating Clinician Comments Source NO KNOWN ALLERGIE S Drug Class Active [facility] Social History Social Habit Start Date Stop Date Quantity Comments Source History of tobacco use Cigarette Smoker [facility] Exposure to SARS-CoV-2 (event) 2022-11-25 00:00:00 2022-12-05 12:36:00 Not sure [facility] Tobacco use and exposure 2022-10-07 00:00:00 2022-10-07 00:00:00 Smokeless tobacco non-user [facility] Sex Assigned At 1985 00:00:00 1985 00:00:00 [facility] Smoking Status Start Date Stop Date Source Tobacco smoking consumption unknown [facility] Smokes tobacco daily 2022-10-07 00:00:00 [facility] Medications Ordered Medication Name Filled Medication Name Start Date Stop Date Current Medication? Ordering Clinician Indication Dosage Frequency Signature (SIG) Comments Components Source LISINOPRIL 10 mg tablet 01-07 00:00: 00 Yes [id number] 10mg TAKE 1 TABLET BY MOUTH IN THE MORNING [facility] LISINOPRIL 10 mg tablet 01-07 00:00: 00 Yes [id number] 10mg TAKE 1 TABLET BY MOUTH IN THE MORNING [facility] gabapentin 300 mg capsule 2023-0 4-12 00:00: 00 Yes [id number] 300mg Take 1 capsule by mouth in the morning and 1 capsule at noon and 1 capsule in the evening. [facility] LISINOPRIL 10 mg tablet 2022-0 4-12 00:00: 00 Yes [id number] 10mg TAKE 1 TABLET BY MOUTH IN THE MORNING [facility] gabapentin 300 mg capsule 3-0 4-12 00:00: 00 Yes [id number] 300mg Take 1 capsule by mouth in the morning and 1 capsule at noon and 1 capsule in the evening. [facility] cyclobenzap rine 10 mg tablet 2022-0 10-20 00:00: 00 Yes [id number] 10mg Take 1 tablet by mouth 3 (three) times daily with meals as needed for Muscle Spasms. [facility] gabapentin 300 mg capsule 2022-0 10-20 00:00: 00 Yes [id number] 300mg Take 1 capsule by mouth in the morning and 1 capsule at noon and 1 capsule in the evening. [facility] meloxicam 15 mg tablet 2022-0 10-20 00:00: 00 Yes [id number] 15mg Take 1 tablet by mouth in the morning. [facility] cyclobenzap rine 10 mg tablet 2022-0 10-20 00:00: 00 Yes [id number] 10mg Take 1 tablet by mouth 3 (three) times daily with meals as needed for Muscle Spasms. [facility] gabapentin 300 mg capsule 2022-0 10-20 00:00: 00 Yes [id number] 300mg Take 1 capsule by mouth in the morning and 1 capsule at noon and 1 capsule in the evening. [facility] meloxicam 15 mg tablet 3-0 10-20 00:00: 00 Yes [id number] 15mg Take 1 tablet by mouth in the morning. [facility] cyclobenzap rine 10 mg tablet 2022-0 10-20 00:00: 00 Yes [id number] 10mg Take 1 tablet by mouth 3 (three) times daily with meals as needed for Muscle Spasms. [facility] gabapentin 300 mg capsule 2022-0 10-20 00:00: 00 Yes [id number] 300mg Take 1 capsule by mouth in the morning and 1 capsule at noon and 1 capsule in the evening. [facility] meloxicam 15 mg tablet 2022-0 10-20 00:00: 00 Yes [id number] 15mg Take 1 tablet by mouth in the morning. [facility] cyclobenzap rine 10 mg tablet 2022-0 10-20 00:00: 00 Yes [id number] 10mg Take 1 tablet by mouth 3 (three) times daily with meals as needed for Muscle Spasms. [facility] gabapentin 300 mg capsule 2022-0 10-20 00:00: 00 Yes [id number] 300mg Take 1 capsule by mouth in the morning and 1 capsule at noon and 1 capsule in the evening. [facility] meloxicam 15 mg tablet 2022-0 10-20 00:00: 00 Yes [id number] 15mg Take 1 tablet by mouth in the morning. [facility] cyclobenzap rine 10 mg tablet 2022-0 10-20 00:00: 00 Yes [id number] 10mg Take 1 tablet by mouth 3 (three) times daily with meals as needed for Muscle Spasms. [facility] gabapentin 300 mg capsule 2022-0 10-20 00:00: 00 Yes [id number] 300mg Take 1 capsule by mouth in the morning and 1 capsule at noon and 1 capsule in the evening. [facility] meloxicam 15 mg tablet 2022-0 10-20 00:00: 00 Yes [id number] 15mg Take 1 tablet by mouth in the morning. [facility] cyclobenzap rine 10 mg tablet 2022-0 10-20 00:00: 00 Yes [id number] 10mg Take 1 tablet by mouth 3 (three) times daily with meals as needed for Muscle Spasms. [facility] gabapentin 300 mg capsule 2022-0 10-20 00:00: 00 Yes [id number] 300mg Take 1 capsule by mouth in the morning and 1 capsule at noon and 1 capsule in the evening. [facility] meloxicam 15 mg tablet 2022-0 10-20 00:00: 00 Yes [id number] 15mg Take 1 tablet by mouth in the morning. [facility] cyclobenzap rine 10 mg tablet 3-0 10-20 00:00: 00 Yes [id number] 10mg Take 1 tablet by mouth 3 (three) times daily with meals as needed for Muscle Spasms. [facility] gabapentin 300 mg capsule 3-0 10-20 00:00: 00 Yes [id number] 300mg Take 1 capsule by mouth in the morning and 1 capsule at noon and 1 capsule in the evening. [facility] meloxicam 15 mg tablet 3-0 10-20 00:00: 00 Yes [id number] 15mg Take 1 tablet by mouth in the morning. [facility] cyclobenzap rine 10 mg tablet 2022-0 10-20 00:00: 00 Yes [id number] 10mg Take 1 tablet by mouth 3 (three) times daily with meals as needed for Muscle Spasms. [facility] gabapentin 300 mg capsule 2022-0 10-20 00:00: 00 Yes [id number] 300mg Take 1 capsule by mouth in the morning and 1 capsule at noon and 1 capsule in the evening. [facility] meloxicam 15 mg tablet 3-0 10-20 00:00: 00 Yes [id number] 15mg Take 1 tablet by mouth in the morning. [facility] cyclobenzap rine 10 mg tablet 3-0 10-20 00:00: 00 Yes [id number] 10mg Take 1 tablet by mouth 3 (three) times daily with meals as needed for Muscle Spasms. [facility] gabapentin 300 mg capsule 3-0 10-20 00:00: 00 Yes [id number] 300mg Take 1 capsule by mouth in the morning and 1 capsule at noon and 1 capsule in the evening. [facility] meloxicam 15 mg tablet 3-0 10-20 00:00: 00 Yes [id number] 15mg Take 1 tablet by mouth in the morning. [facility] cyclobenzap rine 10 mg tablet 3-0 10-20 00:00: 00 Yes [id number] 10mg Take 1 tablet by mouth 3 (three) times daily with meals as needed for Muscle Spasms. [facility] gabapentin 300 mg capsule 2022-0 10-20 00:00: 00 Yes [id number] 300mg Take 1 capsule by mouth in the morning and 1 capsule at noon and 1 capsule in the evening. [facility] meloxicam 15 mg tablet 2022-0 10-20 00:00: 00 Yes [id number] 15mg Take 1 tablet by mouth in the morning. [facility] cyclobenzap rine 10 mg tablet 2022-0 10-20 00:00: 00 Yes [id number] 10mg Take 1 tablet by mouth 3 (three) times daily with meals as needed for Muscle Spasms. [facility] gabapentin 300 mg capsule 2022-0 10-20 00:00: 00 Yes [id number] 300mg Take 1 capsule by mouth in the morning and 1 capsule at noon and 1 capsule in the evening. [facility] meloxicam 15 mg tablet 2022-0 10-20 00:00: 00 Yes [id number] 15mg Take 1 tablet by mouth in the morning. [facility] cyclobenzap rine 10 mg tablet 2022-0 10-20 00:00: 00 Yes [id number] 10mg Take 1 tablet by mouth 3 (three) times daily with meals as needed for Muscle Spasms. [facility] gabapentin 300 mg capsule 2022-0 10-20 00:00: 00 Yes [id number] 300mg Take 1 capsule by mouth in the morning and 1 capsule at noon and 1 capsule in the evening. [facility] meloxicam 15 mg tablet 2022-0 10-20 00:00: 00 Yes [id number] 15mg Take 1 tablet by mouth in the morning. [facility] cyclobenzap rine 10 mg tablet 2022-0 10-20 00:00: 00 Yes [id number] 10mg Take 1 tablet by mouth 3 (three) times daily with meals as needed for Muscle Spasms. [facility] gabapentin 300 mg capsule 3-0 10-20 00:00: 00 Yes [id number] 300mg Take 1 capsule by mouth in the morning and 1 capsule at noon and 1 capsule in the evening. [facility] meloxicam 15 mg tablet 2022-0 10-20 00:00: 00 Yes [id number] 15mg Take 1 tablet by mouth in the morning. [facility] cyclobenzap rine 10 mg tablet 2022-0 10-20 00:00: 00 Yes [id number] 10mg Take 1 tablet by mouth 3 (three) times daily with meals as needed for Muscle Spasms. [facility] gabapentin 300 mg capsule 2022-0 10-20 00:00: 00 Yes [id number] 300mg Take 1 capsule by mouth in the morning and 1 capsule at noon and 1 capsule in the evening. [facility] meloxicam 15 mg tablet 2022-0 10-20 00:00: 00 Yes [id number] 15mg Take 1 tablet by mouth in the morning. [facility] cyclobenzap rine 10 mg tablet 2022-0 10-20 00:00: 00 Yes [id number] 10mg Take 1 tablet by mouth 3 (three) times daily with meals as needed for Muscle Spasms. [facility] gabapentin 300 mg capsule 2022-0 10-20 00:00: 00 Yes [id number] 300mg Take 1 capsule by mouth in the morning and 1 capsule at noon and 1 capsule in the evening. [facility] meloxicam 15 mg tablet 2022-0 10-20 00:00: 00 Yes [id number] 15mg Take 1 tablet by mouth in the morning. [facility] cyclobenzap rine 10 mg tablet 2022-0 10-20 00:00: 00 Yes [id number] 10mg Take 1 tablet by mouth 3 (three) times daily with meals as needed for Muscle Spasms. [facility] gabapentin 300 mg capsule 2022-0 10-20 00:00: 00 Yes [id number] 300mg Take 1 capsule by mouth in the morning and 1 capsule at noon and 1 capsule in the evening. [facility] meloxicam 15 mg tablet 3-0 10-20 00:00: 00 Yes [id number] 15mg Take 1 tablet by mouth in the morning. [facility] cyclobenzap rine 10 mg tablet 3-0 10-20 00:00: 00 Yes [id number] 10mg Take 1 tablet by mouth 3 (three) times daily with meals as needed for Muscle Spasms. [facility] gabapentin 300 mg capsule 3-0 10-20 00:00: 00 Yes [id number] 300mg Take 1 capsule by mouth in the morning and 1 capsule at noon and 1 capsule in the evening. [facility] meloxicam 15 mg tablet 3-0 10-20 00:00: 00 Yes [id number] 15mg Take 1 tablet by mouth in the morning. [facility] cyclobenzap rine 10 mg tablet 3-0 10-20 00:00: 00 Yes [id number] 10mg Take 1 tablet by mouth 3 (three) times daily with meals as needed for Muscle Spasms. [facility] gabapentin 300 mg capsule 2022-0 10-20 00:00: 00 Yes [id number] 300mg Take 1 capsule by mouth in the morning and 1 capsule at noon and 1 capsule in the evening. [facility] meloxicam 15 mg tablet 3-0 10-20 00:00: 00 Yes [id number] 15mg Take 1 tablet by mouth in the morning. [facility] cyclobenzap rine 10 mg tablet 3-0 10-20 00:00: 00 Yes [id number] 10mg Take 1 tablet by mouth 3 (three) times daily with meals as needed for Muscle Spasms. [facility] gabapentin 300 mg capsule 3-0 10-20 00:00: 00 Yes [id number] 300mg Take 1 capsule by mouth in the morning and 1 capsule at noon and 1 capsule in the evening. [facility] meloxicam 15 mg tablet 3-0 10-20 00:00: 00 Yes [id number] 15mg Take 1 tablet by mouth in the morning. [facility] cyclobenzap rine 10 mg tablet 3-0 10-20 00:00: 00 Yes [id number] 10mg Take 1 tablet by mouth 3 (three) times daily with meals as needed for Muscle Spasms. [facility] gabapentin 300 mg capsule 3-0 10-20 00:00: 00 Yes [id number] 300mg Take 1 capsule by mouth in the morning and 1 capsule at noon and 1 capsule in the evening. [facility] meloxicam 15 mg tablet 3-0 10-20 00:00: 00 Yes [id number] 15mg Take 1 tablet by mouth in the morning. [facility] cyclobenzap rine 10 mg tablet 2022-0 10-20 00:00: 00 Yes [id number] 10mg Take 1 tablet by mouth 3 (three) times daily with meals as needed for Muscle Spasms. [facility] gabapentin 300 mg capsule 2022-0 10-20 00:00: 00 Yes [id number] 300mg Take 1 capsule by mouth in the morning and 1 capsule at noon and 1 capsule in the evening. [facility] meloxicam 15 mg tablet 2022-0 10-20 00:00: 00 Yes [id number] 15mg Take 1 tablet by mouth in the morning. [facility] cyclobenzap rine 10 mg tablet 2022-0 10-20 00:00: 00 Yes [id number] 10mg Take 1 tablet by mouth 3 (three) times daily with meals as needed for Muscle Spasms. [facility] meloxicam 15 mg tablet 2022-0 10-20 00:00: 00 Yes [id number] 15mg Take 1 tablet by mouth in the morning. [facility] cyclobenzap rine 10 mg tablet 2022-0 10-20 00:00: 00 Yes [id number] 10mg Take 1 tablet by mouth 3 (three) times daily with meals as needed for Muscle Spasms. [facility] meloxicam 15 mg tablet 3-0 10-20 00:00: 00 Yes [id number] 15mg Take 1 tablet by mouth in the morning. [facility] cyclobenzap rine 10 mg tablet 3-0 10-20 00:00: 00 Yes [id number] 10mg Take 1 tablet by mouth 3 (three) times daily with meals as needed for Muscle Spasms. [facility] meloxicam 15 mg tablet 3-0 10-20 00:00: 00 Yes [id number] 15mg Take 1 tablet by mouth in the morning. [facility] gabapentin 300 mg capsule 10-20 00:00: 00 01-07 00:00 :00 No [id number] 300mg Take 1 capsule by mouth in the morning and 1 capsule at noon and 1 capsule in the evening. [facility] meloxicam 15 mg tablet 0 10-09 00:00: 00 Yes [id number] 15mg Take 1 tablet by mouth in the morning. [facility] meloxicam 15 mg tablet 0 10-09 00:00: 00 Yes [id number] 15mg Take 1 tablet by mouth in the morning. [facility] meloxicam 15 mg tablet 0 10-09 00:00: 00 Yes [id number] 15mg Take 1 tablet by mouth in the morning. [facility] meloxicam 15 mg tablet 0 10-09 00:00: 00 Yes [id number] 15mg Take 1 tablet by mouth in the morning. [facility] meloxicam 15 mg tablet 0 10-09 00:00: 00 Yes [id number] 15mg Take 1 tablet by mouth in the morning. [facility] meloxicam 15 mg tablet 0 10-09 00:00: 00 Yes [id number] 15mg Take 1 tablet by mouth in the morning. [facility] meloxicam 15 mg tablet 0 10-09 00:00: 00 Yes [id number] 15mg Take 1 tablet by mouth in the morning. [facility] meloxicam 15 mg tablet 0 10-09 00:00: 00 Yes [id number] 15mg Take 1 tablet by mouth in the morning. [facility] meloxicam 15 mg tablet 0 10-09 00:00: 00 Yes [id number] 15mg Take 1 tablet by mouth in the morning. [facility] methocarbam oL 500 mg tablet 10-09 00:00: 00 11-09 05:59 :00 No [id number] 500mg Take 1 tablet by mouth 4 (four) times daily for 30 days. [facility] methocarbam oL 500 mg tablet 0 10-09 00:00: 00 11-09 05:59 :00 No [id number] 500mg Take 1 tablet by mouth 4 (four) times daily for 30 days. [facility] methocarbam oL 500 mg tablet 2022-0 -12 00:00: 00 11-09 05:59 :00 No [id number] 500mg Take 1 tablet by mouth 4 (four) times daily for 30 days. [facility] methocarbam oL 500 mg tablet 2022-0 12 00:00: 00 11-09 05:59 :00 No [id number] 500mg Take 1 tablet by mouth 4 (four) times daily for 30 days. [facility] methocarbam oL 500 mg tablet 2022-0 10-09 00:00: 00 11-09 05:59 :00 No [id number] 500mg Take 1 tablet by mouth 4 (four) times daily for 30 days. [facility] methocarbam oL 500 mg tablet 2022-0 10-09 00:00: 00 11-09 05:59 :00 No [id number] 500mg Take 1 tablet by mouth 4 (four) times daily for 30 days. [facility] methocarbam oL 500 mg tablet 2022-0 12 00:00: 00 11-09 05:59 :00 No [id number] 500mg Take 1 tablet by mouth 4 (four) times daily for 30 days. [facility] methocarbam oL 500 mg tablet 2022-0 12 00:00: 00 11-09 05:59 :00 No [id number] 500mg Take 1 tablet by mouth 4 (four) times daily for 30 days. [facility] methocarbam oL 500 mg tablet 2022-0 12 00:00: 00 11-09 05:59 :00 No [id number] 500mg Take 1 tablet by mouth 4 (four) times daily for 30 days. [facility] methocarbam oL 500 mg tablet 2022-0 12 00:00: 00 11-09 05:59 :00 No [id number] 500mg Take 1 tablet by mouth 4 (four) times daily for 30 days. [facility] methocarbam oL 500 mg tablet 2022-0 -12 00:00: 00 11-09 05:59 :00 No [id number] 500mg Take 1 tablet by mouth 4 (four) times daily for 30 days. [facility] methocarbam oL 500 mg tablet 2022-0 -12 00:00: 00 11-09 05:59 :00 No [id number] 500mg Take 1 tablet by mouth 4 (four) times daily for 30 days. [facility] methocarbam oL 500 mg tablet 2022-0 12 00:00: 00 11-09 05:59 :00 No [id number] 500mg Take 1 tablet by mouth 4 (four) times daily for 30 days. [facility] methocarbam oL 500 mg tablet 2022-0 12 00:00: 00 11-09 05:59 :00 No [id number] 500mg Take 1 tablet by mouth 4 (four) times daily for 30 days. [facility] methocarbam oL 500 mg tablet 2022-0 12 00:00: 00 11-09 05:59 :00 No [id number] 500mg Take 1 tablet by mouth 4 (four[facility] times daily [facility] methocarbam oL 500 mg tablet 2022-0 12 00:00: 00 11-09 05:59 :00 No [id number] 500mg Take 1 tablet by mouth 4 (four) times daily for 30 days. [facility]0 12 00:00: 00 11-09 05:59 :00 No [id number] 500mg Take 1 tablet by mouth 4 (four) times daily for 30 days. [facility] 2022-0 12 00:00: 00 11-09 05:59 :00 No [id number] 500mg Take 1 tablet by mouth 4 (four) times daily for 30 days. [facility] meloxicam 15 mg tablet 2022-0 -12 00:00: 00 10-20 00:00 :00 No [id number] 15mg Take 1 tablet by mouth in the morning. [facility] HYDROcodone -acetaminop hen (NORCO) 10-325 mg tablet 10-09 00:00: 00 10-17 05:59 :00 No [id number] 1{tbl} Take 1 tablet by mouth every 6 (six) hours as needed (Patient to take pill 30 minutes before MRI begins.) for up to 7 days. Indication s: acute pain [facility] HYDROcodone -acetaminop hen (NORCO) 10-325 mg tablet 10-09 00:00: 00 10-17 05:59 :00 No [id number] 1{tbl} Take 1 tablet by mouth every 6 (six) hours as needed (Patient to take pill 30 minutes before MRI begins.) for up to 7 days. Indication s: acute pain [facility] HYDROcodone -acetaminop hen (NORCO) 10-325 mg tablet 10-09 00:00: 00 10-17 05:59 :00 No [id number] 1{tbl} Take 1 tablet by mouth every 6 (six) hours as needed (Patient to take pill 30 minutes before MRI begins.) for up to 7 days. Indication s: acute pain [facility] HYDROcodone -acetaminop hen (NORCO) 10-325 mg tablet 10-09 00:00: 00 10-17 05:59 :00 No [id number] 1{tbl} Take 1 tablet by mouth every 6 (six) hours as needed (Patient to take pill 30 minutes before MRI begins.) for up to 7 days. Indication s: acute pain [facility] HYDROcodone -acetaminop hen (NORCO) 10-325 mg tablet 2022-10-09 00:00: 00 10-17 05:59 :00 No [id number] 1{tbl} Take 1 tablet by mouth every 6 (six) hours as needed (Patient to take pill 30 minutes before MRI begins.) for up to 7 days. Indication s: acute pain [facility] HYDROcodone -acetaminop hen (NORCO) 10-325 mg tablet 0 -12 00:00: 00 10-17 05:59 :00 No [id number] 1{tbl} Take 1 tablet by mouth every 6 (six) hours as needed (Patient to take pill 30 minutes before MRI begins.) for up to 7 days. Indication s: acute pain [facility] gabapentin 300 mg capsule 0 - 00:00: 00 Yes [id number] 300mg Take 1 capsule by mouth in the morning and 1 capsule at noon and 1 capsule in the evening. [facility] lisinopriL 10 mg tablet 0 10-06 00:00: 00 Yes [id number] 10mg Take 1 tablet by mouth in the morning. [facility] gabapentin 300 mg capsule 0 10-06 00:00: 00 Yes [id number] 300mg Take 1 capsule by mouth in the morning and 1 capsule at noon and 1 capsule in the evening. [facility] lisinopriL 10 mg tablet 0 10-06 00:00: 00 Yes [id number] 10mg Take 1 tablet by mouth in the morning. [facility] gabapentin 300 mg capsule 0 10-06 00:00: 00 Yes [id number] 300mg Take 1 capsule by mouth in the morning and 1 capsule at noon and 1 capsule in the evening. [facility] lisinopriL 10 mg tablet 0 10-06 00:00: 00 Yes [id number] 10mg Take 1 tablet by mouth in the morning. [facility] gabapentin 300 mg capsule 0 10-06 00:00: 00 Yes [id number] 300mg Take 1 capsule by mouth in the morning and 1 capsule at noon and 1 capsule in the evening. [facility] lisinopriL 10 mg tablet 2022-0 10-06 00:00: 00 Yes [id number] 10mg Take 1 tablet by mouth in the morning. [facility] gabapentin 300 mg capsule 2022-0 10-06 00:00: 00 Yes [id number] 300mg Take 1 capsule by mouth in the morning and 1 capsule at noon and 1 capsule in the evening. [facility] lisinopriL 10 mg tablet 0 10-06 00:00: 00 Yes [id number] 10mg Take 1 tablet by mouth in the morning. [facility] gabapentin 300 mg capsule 2022-0 - 00:00: 00 Yes [id number] 300mg Take 1 capsule by mouth in the morning and 1 capsule at noon and 1 capsule in the evening. [facility] lisinopriL 10 mg tablet 2022-0 10-06 00:00: 00 Yes [id number] 10mg Take 1 tablet by mouth in the morning. [facility] gabapentin 300 mg capsule 2022-0 10-06 00:00: 00 Yes [id number] 300mg Take 1 capsule by mouth in the morning and 1 capsule at noon and 1 capsule in the evening. [facility] lisinopriL 10 mg tablet 2022-0 10-06 00:00: 00 Yes [id number] 10mg Take 1 tablet by mouth in the morning. [facility] gabapentin 300 mg capsule 2022-0 10-06 00:00: 00 Yes [id number] 300mg Take 1 capsule by mouth in the morning and 1 capsule at noon and 1 capsule in the evening. [facility] lisinopriL 10 mg tablet 2022-0 10-06 00:00: 00 Yes [id number] 10mg Take 1 tablet by mouth in the morning. [facility] gabapentin 300 mg capsule 2022-0 10-06 00:00: 00 Yes [id number] 300mg Take 1 capsule by mouth in the morning and 1 capsule at noon and 1 capsule in the evening. [facility] lisinopriL 10 mg tablet 2022-0 10-06 00:00: 00 Yes [id number] 10mg Take 1 tablet by mouth in the morning. [facility] gabapentin 300 mg capsule 3-0 10-06 00:00: 00 Yes [id number] 300mg Take 1 capsule by mouth in the morning and 1 capsule at noon and 1 capsule in the evening. [facility] lisinopriL 10 mg tablet 3-0 10-06 00:00: 00 Yes [id number] 10mg Take 1 tablet by mouth in the morning. [facility] gabapentin 300 mg capsule 2022-0 10-06 00:00: 00 Yes [id number] 300mg Take 1 capsule by mouth in the morning and 1 capsule at noon and 1 capsule in the evening. [facility] lisinopriL 10 mg tablet 2022-0 10-06 00:00: 00 Yes [id number] 10mg Take 1 tablet by mouth in the morning. [facility] gabapentin 300 mg capsule 2022-0 10-06 00:00: 00 Yes [id number] 300mg Take 1 capsule by mouth in the morning and 1 capsule at noon and 1 capsule in the evening. [facility] lisinopriL 10 mg tablet 2022-0 10-06 00:00: 00 Yes [id number] 10mg Take 1 tablet by mouth in the morning. [facility] gabapentin 300 mg capsule 2022-0 10-06 00:00: 00 Yes [id number] 300mg Take 1 capsule by mouth in the morning and 1 capsule at noon and 1 capsule in the evening. [facility] lisinopriL 10 mg tablet 2022-0 10-06 00:00: 00 Yes [id number] 10mg Take 1 tablet by mouth in the morning. [facility] gabapentin 300 mg capsule 2022-0 10-06 00:00: 00 Yes [id number] 300mg Take 1 capsule by mouth in the morning and 1 capsule at noon and 1 capsule in the evening. [facility] lisinopriL 10 mg tablet 2022-0 10-06 00:00: 00 Yes [id number] 10mg Take 1 tablet by mouth in the morning. [facility] gabapentin 300 mg capsule 2022-0 10-06 00:00: 00 Yes [id number] 300mg Take 1 capsule by mouth in the morning and 1 capsule at noon and 1 capsule in the evening. [facility] lisinopriL 10 mg tablet 2022-0 10-06 00:00: 00 Yes [id number] 10mg Take 1 tablet by mouth in the morning. [facility] lisinopriL 10 mg tablet 2022-0 10-06 00:00: 00 Yes [id number] 10mg Take 1 tablet by mouth in the morning. [facility] lisinopriL 10 mg tablet 2022-0 10-06 00:00: 00 Yes [id number] 10mg Take 1 tablet by mouth in the morning. [facility] lisinopriL 10 mg tablet 2022-0 10-06 00:00: 00 Yes [id number] 10mg Take 1 tablet by mouth in the morning. [facility] lisinopriL 10 mg tablet 2022-0 10-06 00:00: 00 Yes [id number] 10mg Take 1 tablet by mouth in the morning. [facility] lisinopriL 10 mg tablet 2022-0 10-06 00:00: 00 Yes [id number] 10mg Take 1 tablet by mouth in the morning. [facility] lisinopriL 10 mg tablet 2022-0 10-06 00:00: 00 Yes [id number] 10mg Take 1 tablet by mouth in the morning. [facility] lisinopriL 10 mg tablet 2022-0 10-06 00:00: 00 Yes [id number] 10mg Take 1 tablet by mouth in the morning. [facility] lisinopriL 10 mg tablet 2022-0 10-06 00:00: 00 Yes [id number] 10mg Take 1 tablet by mouth in the morning. [facility] lisinopriL 10 mg tablet 2022-0 10-06 00:00: 00 Yes [id number] 10mg Take 1 tablet by mouth in the morning. [facility] lisinopriL 10 mg tablet 2022-0 10-06 00:00: 00 Yes [id number] 10mg Take 1 tablet by mouth in the morning. [facility] lisinopriL 10 mg tablet 2022-0 10-06 00:00: 00 Yes [id number] 10mg Take 1 tablet by mouth in the morning. [facility] lisinopriL 10 mg tablet 2022-0 10-06 00:00: 00 Yes [id number] 10mg Take 1 tablet by mouth in the morning. [facility] lisinopriL 10 mg tablet 3-0 10-06 00:00: 00 Yes [id number] 10mg Take 1 tablet by mouth in the morning. [facility] lisinopriL 10 mg tablet 10-06 00:00: 00 Yes [id number] 10mg Take 1 tablet by mouth in the morning. [facility] lisinopriL 10 mg tablet 10-06 00:00: 00 Yes [id number] 10mg Take 1 tablet by mouth in the morning. [facility] lisinopriL 10 mg tablet 10-06 00:00: 00 Yes [id number] 10mg Take 1 tablet by mouth in the morning. [facility] lisinopriL 10 mg tablet 10-06 00:00: 00 Yes [id number] 10mg Take 1 tablet by mouth in the morning. [facility] lisinopriL 10 mg tablet 10-06 00:00: 00 Yes [id number] 10mg Take 1 tablet by mouth in the morning. [facility] lisinopriL 10 mg tablet 10-06 00:00: 00 Yes [id number] 10mg Take 1 tablet by mouth in the morning. [facility] lisinopriL 10 mg tablet 10-06 00:00: 00 Yes [id number] 10mg Take 1 tablet by mouth in the morning. [facility] gabapentin 300 mg capsule 10-06 00:00: 00 Yes [id number] 300mg Take 1 capsule by mouth in the morning and 1 capsule at noon and 1 capsule in the evening. [facility] lisinopriL 10 mg tablet 10-06 00:00: 00 Yes [id number] 10mg Take 1 tablet by mouth in the morning. [facility] lisinopriL 10 mg tablet 10-06 00:00: 00 01-07 00:00 :00 No [id number] 10mg Take 1 tablet by mouth in the morning. [facility] gabapentin 300 mg capsule 10-06 00:00: 00 10-20 00:00 :00 No [id number] 300mg Take 1 capsule by mouth in the morning and 1 capsule at noon and 1 capsule in the evening. [facility] HYDROcodone -acetaminop hen (NORCO) 10-325 mg tablet 1 tablet 10-02 04:45: 00 10-02 03:49 :00 No 1{tbl} 1 tablet, Oral, ONCE, 1 dose, On Thu10/01/22 at 2245, Routine [facility] ketorolac (TORADOL) injection 60 mg 10-02 04:30: 00 10-02 03:49 :00 No 60mg 60 mg, Intramuscu lar, ONCE, 1 dose, On Thu10/01/22 at 2230, Routine [facility] ketorolac 10 mg tablet 10-01 00:00: 00 Yes [id number] 10mg Take 1 tablet by mouth every 6 (six) hours as needed for Pain (scale 4-6). [facility] traMADoL 50 mg tablet 10-01 00:00: 00 Yes [id number] 50mg Take 1 tablet by mouth every 6 (six) hours as needed for Pain (scale 7-10). Indication s: acute pain [facility] methylPREDN ISolone 4 mg tablets 10-01 00:00: 00 Yes [id number] Take by mouth SEE-INSTRU CTIONS. follow package directions [facility] ketorolac 10 mg tablet 10-01 00:00: 00 Yes [id number] 10mg Take 1 tablet by mouth every 6 (six) hours as needed for Pain (scale 4-6). [facility] traMADoL 50 mg tablet 10-01 00:00: 00 Yes [id number] 50mg Take 1 tablet by mouth every 6 (six) hours as needed for Pain (scale 7-10). Indication s: acute pain [facility] methylPREDN ISolone 4 mg tablets 10-01 00:00: 00 Yes [id number] Take by mouth SEE-INSTRU CTIONS. follow package directions [facility] ketorolac 10 mg tablet 10-01 00:00: 00 Yes [id number] 10mg Take 1 tablet by mouth every 6 (six) hours as needed for Pain (scale 4-6). [facility] traMADoL 50 mg tablet 10-01 00:00: 00 Yes [id number] 50mg Take 1 tablet by mouth every 6 (six) hours as needed for Pain (scale 7-10). Indication s: acute pain [facility] methylPREDN ISolone 4 mg tablets 10-01 00:00: 00 Yes [id number] Take by mouth SEE-INSTRU CTIONS. follow package directions [facility] ketorolac 10 mg tablet 10-01 00:00: 00 Yes [id number] 10mg Take 1 tablet by mouth every 6 (six) hours as needed for Pain (scale 4-6). [facility] 10-01 00:00: 00 Yes [id number] 50mg Take 1 tablet by mouth every 6 (six) hours as needed for Pain (scale 7-10). Indication s: acute pain [facility] methylPREDN ISolone 4 mg tablets 10-01 00:00: 00 Yes [id number] Take by mouth SEE-INSTRU CTIONS. follow package directions [facility] tablet 10-01 00:00: 00 Yes [id number] 10mg Take 1 tablet by mouth every 6 (six) hours as needed for Pain (scale 4-6). [facility] tra[facility] mg tablet 10-01 00:00: 00 Yes [id number] 50mg Take 1 tablet by mouth every 6 (six) hours as needed for Pain (scale 7-10). Indication s: acute pain [facility] methylPREDN ISolone 4 mg tablets 10-01 00:00: 00 Yes [id number] Take by mouth SEE-INSTRU CTIONS. follow package directions [facility] tablet 10-01 00:00: 00 Yes [id number] 10mg Take 1 tablet by mouth every 6 (six) hours as needed for Pain (scale 4-6). [facility] tra[facility] mg tablet 10-01 00:00: 00 Yes [id number] 50mg Take 1 tablet by mouth every 6 (six) hours as needed for Pain (scale 7-10). Indication s: acute pain [facility] methylPREDN ISolone 4 mg tablets 10-01 00:00: 00 Yes [id number] Take by mouth SEE-INSTRU CTIONS. follow package directions [facility] ketorolac 10 mg tablet 10-01 00:00: 00 Yes [id number] 10mg Take 1 tablet by mouth every 6 (six) hours as needed for Pain (scale 4-6). [facility] mg tablet 10-01 00:00: 00 Yes [id number] 50mg Take 1 tablet by mouth every 6 (six) hours as needed for Pain (scale 7-10). Indication s: acute pain [facility] methylPREDN ISolone 4 mg tablets 10-01 00:00: 00 Yes [id number] Take by mouth SEE-INSTRU CTIONS. follow package directions [facility] ketorolac 10 mg tablet 10-01 00:00: 00 Yes [id number] 10mg Take 1 tablet by mouth every 6 (six) hours as needed for Pain (scale 4-6). [facility] traMADoL 50 mg tablet 10-01 00:00: 00 Yes [id number] 50mg Take 1 tablet by mouth every 6 (six) hours as needed for Pain (scale 7-10). Indication s: acute pain [facility] methylPREDN ISolone 4 mg tablets 10-01 00:00: 00 Yes [id number] Take by mouth SEE-INSTRU CTIONS. follow package directions [facility] ketorolac 10 mg tablet 10-01 00:00: 00 Yes [id number] 10mg Take 1 tablet by mouth every 6 (six) hours as needed for Pain (scale 4-6). [facility] mg tablet 10-01 00:00: 00 Yes [id number] 50mg Take 1 tablet by mouth every 6 (six) hours as needed for Pain (scale 7-10). Indication s: acute pain [facility] methylPREDN ISolone 4 mg tablets 10-01 00:00: 00 Yes [id number] Take by mouth SEE-INSTRU CTIONS. follow package directions [facility] mg tablet 0 10-01 00:00: 00 Yes [id number] 10mg Take 1 tablet by mouth every 6 (six) hours as needed for Pain (scale 4-6). [facility] mg tablet 10-01 00:00: 00 Yes [id number] 50mg Take 1 tablet by mouth every 6 (six) hours as needed for Pain (scale 7-10). Indication s: acute pain [facility] methylPREDN ISolone 4 mg tablets 10-01 00:00: 00 Yes [id number] Take by mouth SEE-INSTRU CTIONS. follow package directions [facility] ketorolac 10 mg tablet 10-01 00:00: 00 Yes [id number] 10mg Take 1 tablet by mouth every 6 (six) hours as needed for Pain (scale 4-6). [facility] traMADoL 50 mg tablet 10-01 00:00: 00 Yes [id number] 50mg Take 1 tablet by mouth every 6 (six) hours as needed for Pain (scale 7-10). Indication s: acute pain [facility] methylPREDN ISolone 4 mg tablets 10-01 00:00: 00 Yes [id number] Take by mouth SEE-INSTRU CTIONS. follow package directions [facility] ketorolac 10 mg tablet 10-01 00:00: 00 Yes [id number] 10mg Take 1 tablet by mouth every 6 (six) hours as needed for Pain (scale 4-6). [facility] traMADoL 50 mg tablet 0 10-01 00:00: 00 Yes [id number] 50mg Take 1 tablet by mouth every 6 (six) hours as needed for Pain (scale 7-10). Indication s: acute pain [facility] methylPREDN ISolone 4 mg tablets 10-01 00:00: 00 Yes [id number] Take by mouth SEE-INSTRU CTIONS. follow package directions [facility] ketorolac 10 mg tablet 0 10-01 00:00: 00 Yes [id number] 10mg Take 1 tablet by mouth every 6 (six) hours as needed for Pain (scale 4-6). [facility] traMADoL 50 mg tablet 10-01 00:00: 00 Yes [id number] 50mg Take 1 tablet by mouth every 6 (six) hours as needed for Pain (scale 7-10). Indication s: acute pain [facility] methylPREDN ISolone 4 mg tablets 10-01 00:00: 00 Yes [id number] Take by mouth SEE-INSTRU CTIONS. follow package directions [facility] ketorolac 10 mg tablet 10-01 00:00: 00 Yes [id number] 10mg Take 1 tablet by mouth every 6 (six) hours as needed for Pain (scale 4-6). [facility] traMADoL 50 mg tablet 10-01 00:00: 00 Yes [id number] 50mg Take 1 tablet by mouth every 6 (six) hours as needed for Pain (scale 7-10). Indication s: acute pain [facility] methylPREDN ISolone 4 mg tablets 10-01 00:00: 00 Yes [id number] Take by mouth SEE-INSTRU CTIONS. follow package directions [facility] ketorolac 10 mg tablet 10-01 00:00: 00 Yes [id number] 10mg Take 1 tablet by mouth every 6 (six) hours as needed for Pain (scale 4-6). [facility] traMADoL 50 mg tablet 10-01 00:00: 00 Yes [id number] 50mg Take 1 tablet by mouth every 6 (six) hours as needed for Pain (scale 7-10). Indication s: acute pain [facility] methylPREDN ISolone 4 mg tablets 10-01 00:00: 00 Yes [id number] Take by mouth SEE-INSTRU CTIONS. follow package directions [facility] ketorolac 10 mg tablet 10-01 00:00: 00 Yes [id number] 10mg Take 1 tablet by mouth every 6 (six) hours as needed for Pain (scale 4-6). [facility] traMADoL 50 mg tablet 0 10-01 00:00: 00 Yes [id number] 50mg Take 1 tablet by mouth every 6 (six) hours as needed for Pain (scale 7-10). Indication s: acute pain [facility] methylPREDN ISolone 4 mg tablets 0 10-01 00:00: 00 Yes [id number] Take by mouth SEE-INSTRU CTIONS. follow package directions [facility] ketorolac 10 mg tablet 0 - 00:00: 00 Yes [id number] 10mg Take 1 tablet by mouth every 6 (six) hours as needed for Pain (scale 4-6). [facility] mg tablet 0 10-01 00:00: 00 Yes [id number] 50mg Take 1 tablet by mouth every 6 (six) hours as needed for Pain (scale 7-10). Indication s: acute pain [facility] methylPREDN ISolone 4 mg tablets 0 10-01 00:00: 00 Yes [id number] Take by mouth SEE-INSTRU CTIONS. follow package directions [facility] ketorolac 10 mg tablet 0 10-01 00:00: 00 Yes [id number] 10mg Take 1 tablet by mouth every 6 (six) hours as needed for Pain (scale 4-6). [facility] traMADoL 50 mg tablet 0 10-01 00:00: 00 Yes [id number] 50mg Take 1 tablet by mouth every 6 (six) hours as needed for Pain (scale 7-10). Indication s: acute pain [facility] methylPREDN ISolone 4 mg tablets 0 10-01 00:00: 00 Yes [id number] Take by mouth SEE-INSTRU CTIONS. follow package directions [facility] ketorolac 10 mg tablet 2022-0 - 00:00: 00 Yes [id number] 10mg Take 1 tablet by mouth every 6 (six) hours as needed for Pain (scale 4-6). [facility] mg tablet 2022-0 10-01 00:00: 00 Yes [id number] 50mg Take 1 tablet by mouth every 6 (six) hours as needed for Pain (scale 7-10). Indication s: acute [facility] IS[facility] 4 mg tablets 10-01 00:00: 00 Yes [id number] Take by mouth SEE-INSTRU CTIONS. follow package directions [facility] mg tablet 10-01 00:00: 00 Yes [id number] 10mg Take 1 tablet by mouth every 6 (six) hours as needed for Pain (scale 4-6). [facility] tra[facility] mg tablet 10-01 00:00: 00 Yes [id number] 50mg Take 1 tablet by mouth every 6 (six) hours as needed for Pain (scale 7-10). Indication s: acute pain [facility]PREDN ISolone 4 mg tablets 10-01 00:00: 00 Yes [id number] Take by mouth SEE-INSTRU CTIONS. follow package directions [facility] mg tablet 10-01 00:00: 00 Yes [id number] 10mg Take 1 tablet by mouth every 6 (six) hours as needed for Pain (scale 4-6). [facility] traMADoL 50 mg tablet 10-01 00:00: 00 Yes [id number] 50mg Take 1 tablet by mouth every 6 (six) hours as needed for Pain (scale 7-10). Indication s: acute pain [facility] methylPREDN ISolone 4 mg tablets 10-01 00:00: 00 Yes [id number] Take by mouth SEE-INSTRU CTIONS. follow package directions [facility] ketorolac 10 mg tablet 0 10-01 00:00: 00 Yes [id number] 10mg Take 1 tablet by mouth every 6 (six) hours as needed for Pain (scale 4-6). [facility] tra[facility] 50 mg tablet 10-01 00:00: 00 Yes [id number] 50mg Take 1 tablet by mouth every 6 (six) hours as needed for Pain (scale 7-10). Indication s: acute pain [facility] methylPREDN ISolone 4 mg tablets 0 10-01 00:00: 00 Yes [id number] Take by mouth SEE-INSTRU CTIONS. follow package directions [facility] ketorolac 10 mg tablet 0 10-01 00:00: 00 Yes [id number] 10mg Take 1 tablet by mouth every 6 (six) hours as needed for Pain (scale 4-6). [facility] traMADoL 50 mg tablet 10-01 00:00: 00 Yes [id number] 50mg Take 1 tablet by mouth every 6 (six) hours as needed for Pain (scale 7-10). Indication s: acute pain [facility] methylPREDN ISolone 4 mg tablets 0 10-01 00:00: 00 Yes [id number] Take by mouth SEE-INSTRU CTIONS. follow package directions [facility] ketorolac 10 mg tablet 10-01 00:00: 00 Yes [id number] 10mg Take 1 tablet by mouth every 6 (six) hours as needed for Pain (scale 4-6). [facility] traMADoL 50 mg tablet 0 10-01 00:00: 00 Yes [id number] 50mg Take 1 tablet by mouth every 6 (six) hours as needed for Pain (scale 7-10). Indication s: acute pain [facility] methylPREDN ISolone 4 mg tablets 10-01 00:00: 00 Yes [id number] Take by mouth SEE-INSTRU CTIONS. follow package directions [facility] ketorolac 10 mg tablet 0 10-01 00:00: 00 Yes [id number] 10mg Take 1 tablet by mouth every 6 (six) hours as needed for Pain (scale 4-6). [facility] traMADoL 50 mg tablet 0 10-01 00:00: 00 Yes [id number] 50mg Take 1 tablet by mouth every 6 (six) hours as needed for Pain (scale 7-10). Indication s: acute pain [facility] methylPREDN ISolone 4 mg tablets 0 10-01 00:00: 00 Yes [id number] Take by mouth SEE-INSTRU CTIONS. follow package directions [facility] ketorolac 10 mg tablet 10-01 00:00: 00 Yes [id number] 10mg Take 1 tablet by mouth every 6 (six) hours as needed for Pain (scale 4-6). [facility] mg tablet 10-01 00:00: 00 Yes [id number] 50mg Take 1 tablet by mouth every 6 (six) hours as needed for Pain (scale 7-10). Indication s: acute pain [facility] methylPREDN ISolone 4 mg tablets 10-01 00:00: 00 Yes [id number] Take by mouth SEE-INSTRU CTIONS. follow package directions [facility] ketorolac 10 mg tablet 10-01 00:00: 00 Yes [id number] 10mg Take 1 tablet by mouth every 6 (six) hours as needed for Pain (scale 4-6). [facility] mg tablet 10-01 00:00: 00 Yes [id number] 50mg Take 1 tablet by mouth every 6 (six) hours as needed for Pain (scale 7-10). Indication s: acute pain [facility] methylPREDN ISolone 4 mg tablets 10-01 00:00: 00 Yes [id number] Take by mouth SEE-INSTRU CTIONS. follow package directions [facility] ketorolac 10 mg tablet 10-01 00:00: 00 Yes [id number] 10mg Take 1 tablet by mouth every 6 (six) hours as needed for Pain (scale 4-6). [facility] traMADoL 50 mg tablet 10-01 00:00: 00 Yes [id number] 50mg Take 1 tablet by mouth every 6 (six) hours as needed for Pain (scale 7-10). Indication s: acute [facility] IS[facility]one 4 mg tablets 10-01 00:00: 00 Yes [id number] Take by mouth SEE-INSTRU CTIONS. follow package directions [facility] ketorolac 10 mg tablet 10-01 00:00: 00 Yes [id number] 10mg Take 1 tablet by mouth every 6 (six) hours as needed for Pain (scale 4-6). [facility] tra[facility] 50 mg tablet 10-01 00:00: 00 Yes [id number] 50mg Take 1 tablet by mouth every 6 (six) hours as needed for Pain (scale 7-10). Indication s: acute pain [facility] methylPREDN ISolone 4 mg tablets 10-01 00:00: 00 Yes [id number] Take by mouth SEE-INSTRU CTIONS. follow package directions [facility] mg tablet 10-01 00:00: 00 Yes [id number] 10mg Take 1 tablet by mouth every 6 (six) hours as needed for Pain (scale 4-6). [facility] tra[facility] 50 mg tablet 10-01 00:00: 00 Yes [id number] 50mg Take 1 tablet by mouth every 6 (six) hours as needed for Pain (scale 7-10). Indication s: acute pain [facility] methylPREDN ISolone 4 mg tablets 10-01 00:00: 00 Yes [id number] Take by mouth SEE-INSTRU CTIONS. follow package directions [facility] ketorolac 10 mg tablet 10-01 00:00: 00 Yes [id number] 10mg Take 1 tablet by mouth every 6 (six) hours as needed for Pain (scale 4-6). [facility] traMADoL 50 mg tablet 10-01 00:00: 00 Yes [id number] 50mg Take 1 tablet by mouth every 6 (six) hours as needed for Pain (scale 7-10). Indication s: acute pain [facility] methylPREDN ISolone 4 mg tablets 10-01 00:00: 00 Yes [id number] Take by mouth SEE-INSTRU CTIONS. follow package directions [facility] ketorolac 10 mg tablet 10-01 00:00: 00 Yes [id number] 10mg Take 1 tablet by mouth every 6 (six) hours as needed for Pain (scale 4-6). [facility] mg tablet 10-01 00:00: 00 Yes [id number] 50mg Take 1 tablet by mouth every 6 (six) hours as needed for Pain (scale 7-10). Indication s: acute pain [facility] methylPREDN ISolone 4 mg tablets 10-01 00:00: 00 Yes [id number] Take by mouth SEE-INSTRU CTIONS. follow package directions [facility] ketorolac 10 mg tablet 10-01 00:00: 00 Yes [id number] 10mg Take 1 tablet by mouth every 6 (six) hours as needed for Pain (scale 4-6). [facility] traMADoL 50 mg tablet 10-01 00:00: 00 Yes [id number] 50mg Take 1 tablet by mouth every 6 (six) hours as needed for Pain (scale 7-10). Indication s: acute pain [facility] methylPREDN ISolone 4 mg tablets 10-01 00:00: 00 Yes [id number] Take by mouth SEE-INSTRU CTIONS. follow package directions [facility] ketorolac 10 mg tablet 10-01 00:00: 00 Yes [id number] 10mg Take 1 tablet by mouth every 6 (six) hours as needed for Pain (scale 4-6). [facility] traMADoL 50 mg tablet 10-01 00:00: 00 Yes [id number] 50mg Take 1 tablet by mouth every 6 (six) hours as needed for Pain (scale 7-10). Indication s: acute pain [facility] methylPREDN ISolone 4 mg tablets 10-01 00:00: 00 Yes [id number] Take by mouth SEE-INSTRU CTIONS. follow package directions [facility] ketorolac 10 mg tablet 0 10-01 00:00: 00 Yes [id number] 10mg Take 1 tablet by mouth every 6 (six) hours as needed for Pain (scale 4-6). [facility] traMADoL 50 mg tablet 0 10-01 00:00: 00 Yes [id number] 50mg Take 1 tablet by mouth every 6 (six) hours as needed for Pain (scale 7-10). Indication s: acute pain Univers ity [facility] methylPREDN ISolone 4 mg tablets 10-01 00:00: 00 Yes [id number] Take by mouth SEE-INSTRU CTIONS. follow package directions [facility] ketorolac 10 mg tablet 10-01 00:00: 00 Yes [id number] 10mg Take 1 tablet by mouth every 6 (six) hours as needed for Pain (scale 4-6). [facility] ity [facility] traMADoL 50 mg tablet 10-01 00:00: 00 Yes [id number] 50mg Take 1 tablet by mouth every 6 (six) hours as needed for Pain (scale 7-10). Indication s: acute pain [facility] it[facility] methylPREDN ISolone 4 mg tablets 10-01 00:00: 00 Yes [id number] Take by mouth SEE-INSTRU CTIONS. follow package directions [facility] 10-01 00:00: 00 Yes [id number] 10mg Take 1 tablet by mouth every 6 (six) hours as needed for Pain (scale 4-6). [facility] tra[facility]AD[facility] 50 mg tablet 10-01 00:00: 00 Yes [id number] 50mg Take 1 tablet by mouth every 6 (six) hours as needed for Pain (scale 7-10). Indication s: acute pain [facility] methylPREDN ISolone 4 mg tablets 10-01 00:00: 00 Yes [id number] Take by mouth SEE-INSTRU CTIONS. follow package directions [facility] mg tablet 10-01 00:00: 00 Yes [id number] 10mg Take 1 tablet by mouth every 6 (six) hours as needed for Pain (scale 4-6). [facility] tra[facility]AD[facility] 50 mg tablet 10-01 00:00: 00 Yes [id number] 50mg Take 1 tablet by mouth every 6 (six) hours as needed for Pain (scale 7-10). Indication s: acute pain [facility] methylPREDN ISolone 4 mg tablets 10-01 00:00: 00 Yes [id number] Take by mouth SEE-INSTRU CTIONS. follow package directions [facility] mg tablet 10-01 00:00: 00 Yes [id number] 10mg Take 1 tablet by mouth every 6 (six) hours as needed for Pain (scale 4-6). [facility] traMADoL 50 mg tablet 10-01 00:00: 00 Yes [id number] 50mg Take 1 tablet by mouth every 6 (six) hours as needed for Pain (scale 7-10). Indication s: acute pain [facility] methylPREDN ISolone 4 mg tablets 10-01 00:00: 00 Yes [id number] Take by mouth SEE-INSTRU CTIONS. follow package directions [facility] ketorolac 10 mg tablet 10-01 00:00: 00 Yes [id number] 10mg Take 1 tablet by mouth every 6 (six) hours as needed for Pain (scale 4-6). [facility] traMADoL 50 mg tablet 10-01 00:00: 00 Yes [id number] 50mg Take 1 tablet by mouth every 6 (six) hours as needed for Pain (scale 7-10). Indication s: acute pain [facility] methylPREDN ISolone 4 mg tablets 10-01 00:00: 00 Yes [id number] Take by mouth SEE-INSTRU CTIONS. follow package directions [facility] ketorolac 10 mg tablet 10-01 00:00: 00 Yes [id number] 10mg Take 1 tablet by mouth every 6 (six) hours as needed for Pain (scale 4-6). [facility] traMADoL 50 mg tablet 10-01 00:00: 00 Yes [id number] 50mg Take 1 tablet by mouth every 6 (six) hours as needed for Pain (scale 7-10). Indication s: acute pain [facility] methylPREDN ISolone 4 mg tablets 10-01 00:00: 00 Yes [id number] Take by mouth SEE-INSTRU CTIONS. follow package directions [facility] NaCl 0.9% (NS) bolus infusion 1,000 mL 06-19 01:15: 00 06-19 02:59 :00 No 1000mL at 999 mL/hr, 1,000 mL, IV Infusion, ONCE, 1 dose, On Thu06/18/22 at 2015, MARCIANO [facility] cyclobenzap rine 10 mg tablet 2021-0 06-18 00:00: 00 Yes [id number] 10mg Take 1 tablet by mouth 3 (three) times daily with meals as needed for Muscle Spasms. [facility] cyclobenzap rine 10 mg tablet 2021-0 06-18 00:00: 00 Yes [id number] 10mg Take 1 tablet by mouth 3 (three) times daily with meals as needed for Muscle Spasms. [facility] cyclobenzap rine 10 mg tablet 2021-0 06-18 00:00: 00 Yes [id number] 10mg Take 1 tablet by mouth 3 (three) times daily with meals as needed for Muscle Spasms. [facility] cyclobenzap rine 10 mg tablet 2021-0 06-18 00:00: 00 Yes [id number] 10mg Take 1 tablet by mouth 3 (three) times daily with meals as needed for Muscle Spasms. [facility] cyclobenzap rine 10 mg tablet 2021-0 06-18 00:00: 00 Yes [id number] 10mg Take 1 tablet by mouth 3 (three) times daily with meals as needed for Muscle Spasms. [facility] cyclobenzap rine 10 mg tablet 2021-0 06-18 00:00: 00 Yes [id number] 10mg Take 1 tablet by mouth 3 (three) times daily with meals as needed for Muscle Spasms. [facility] cyclobenzap rine 10 mg tablet 2-0 06-18 00:00: 00 Yes [id number] 10mg Take 1 tablet by mouth 3 (three) times daily with meals as needed for Muscle Spasms. [facility] cyclobenzap rine 10 mg tablet 2-0 06-18 00:00: 00 Yes [id number] 10mg Take 1 tablet by mouth 3 (three) times daily with meals as needed for Muscle Spasms. [facility] cyclobenzap rine 10 mg tablet 2-0 06-18 00:00: 00 Yes [id number] 10mg Take 1 tablet by mouth 3 (three) times daily with meals as needed for Muscle Spasms. [facility] cyclobenzap rine 10 mg tablet 2021-0 06-18 00:00: 00 Yes [id number] 10mg Take 1 tablet by mouth 3 (three) times daily with meals as needed for Muscle Spasms. [facility] cyclobenzap rine 10 mg tablet 2-0 06-18 00:00: 00 Yes [id number] 10mg Take 1 tablet by mouth 3 (three) times daily with meals as needed for Muscle Spasms. [facility] cyclobenzap rine 10 mg tablet 2021-0 06-18 00:00: 00 Yes [id number] 10mg Take 1 tablet by mouth 3 (three) times daily with meals as needed for Muscle Spasms. [facility] cyclobenzap rine 10 mg tablet 2-0 06-18 00:00: 00 Yes [id number] 10mg Take 1 tablet by mouth 3 (three) times daily with meals as needed for Muscle Spasms. [facility] cyclobenzap rine 10 mg tablet 2-0 06-18 00:00: 00 Yes [id number] 10mg Take 1 tablet by mouth 3 (three) times daily with meals as needed for Muscle Spasms. [facility] cyclobenzap rine 10 mg tablet 2-0 06-18 00:00: 00 Yes [id number] 10mg Take 1 tablet by mouth 3 (three) times daily with meals as needed for Muscle Spasms. [facility] cyclobenzap rine 10 mg tablet 2-0 06-18 00:00: 00 Yes [id number] 10mg Take 1 tablet by mouth 3 (three) times daily with meals as needed for Muscle Spasms. [facility] ibuprofen 800 mg tablet 2-0 06-18 00:00: 00 Yes [id number] 800mg Take 1 tablet by mouth every 8 (eight) hours as needed for Pain (scale 4-6). [facility] cyclobenzap rine 10 mg tablet 2-0 -21 00:00: 00 Yes [id number] 10mg Take 1 tablet by mouth 3 (three) times daily with meals as needed for Muscle Spasms. [facility] cyclobenzap rine 10 mg tablet 06-18 00:00: 00 Yes [id number] 10mg Take 1 tablet by mouth 3 (three) times daily with meals as needed for Muscle Spasms. [facility] cyclobenzap rine 10 mg tablet 06-18 00:00: 00 10-20 00:00 :00 No [id number] 10mg Take 1 tablet by mouth 3 (three) times daily with meals as needed for Muscle Spasms. [facility] ibuprofen 800 mg tablet 06-18 00:00: 00 10-01 00:00 :00 No [id number] 800mg Take 1 tablet by mouth every 8 (eight) hours as needed for Pain (scale 4-6). [facility] sucralfate 1 gram tablet 06-18 00:00: 00 07-03 04:59 :00 No [id number] 1g Take 1 tablet by mouth before meals and at bedtime for 14 days. [facility] Vital Signs Vital Name Observation Time Observation Value Comments S ource Systolic blood pressure 2022-12-05 19:13:00 148 mm[Hg] Pt states he did not take his medication for BP. [facility] Diastolic blood pressure 2022-12-05 19:13:00 102 mm[Hg] Pt states he did not take his medication for BP. [facility] Heart rate 2022-12-05 19:13:00 81 /min [facility] Body temperature 2022-12-05 19:10:00 35.67 Zoie [facility] Respiratory rate 2022-12-05 19:10:00 24 /min [facility] Body height 2022-12-05 19:10:00 175.3 cm [facility] Body weight 2022-12-05 19:10:00 119.886 kg [facility] BMI 2022-12-05 19:10:00 39.03 kg/m2 [facility] Oxygen saturation in Arterial blood by Pulse oximetry 2022-12-05 19:10:00 97 /min [facility] Systolic blood pressure 2022-11-06 19:21:00 117 mm[Hg] [facility] Diastolic blood pressure 2022-11-06 19:21:00 76 mm[Hg] [facility] Heart rate 2022-11-06 19:21:00 92 /min [facility] Body temperature 2022-11-06 19:21:00 35.78 Zoie [facility] Body height 2022-11-06 19:21:00 175.3 cm [facility] Body weight 2022-11-06 19:21:00 121.7 kg [facility] BMI 2022-11-06 19:21:00 39.62 kg/m2 [facility] Systolic blood pressure 2022-10-09 21:02:00 117 mm[Hg] [facility] Diastolic blood pressure 2022-10-09 21:02:00 74 mm[Hg] [facility] Heart rate 2022-10-09 21:02:00 108 /min [facility] Body temperature 2022-10-09 21:02:00 36.33 Zoie [facility] Body height 2022-10-09 21:02:00 175.3 cm [facility] Body weight 2022-10-09 21:02:00 121.11 kg [facility] BMI 2022-10-09 21:02:00 39.43 kg/m2 [facility] Body temperature 2022-10-07 22:13:00 36.56 Zoie [facility] Body height 2022-10-07 22:13:00 175.3 cm [facility] Body weight 2022-10-07 22:13:00 117.935 kg [facility] BMI 2022-10-07 22:13:00 38.40 kg/m2 [facility] Systolic blood pressure 2022-10-06 15:04:00 154 mm[Hg] [facility] Diastolic blood pressure 2022-10-06 15:04:00 113 mm[Hg] [facility] Heart rate 2022-10-06 14:49:00 79 /min [facility] Body temperature 2022-10-06 14:49:00 36.67 Zoie [facility] Body height 2022-10-06 14:49:00 175.3 cm [facility] Body weight 2022-10-06 14:49:00 118.389 kg [facility] BMI 2022-10-06 14:49:00 38.54 kg/m2 [facility] Systolic blood pressure 2022-10-02 04:33:07 137 mm[Hg] [facility] Diastolic blood pressure 2022-10-02 04:33:07 74 mm[Hg] [facility] Heart rate 2022-10-02 04:33:07 116 /min [facility] Body temperature 2022-10-02 04:33:07 36.89 Zoie [facility] Respiratory rate 2022-10-02 04:33:07 17 /min [facility] Oxygen saturation in Arterial blood by Pulse oximetry 2022-10-02 04:33:07 95 /min [facility] Body height 2022-10-02 03:02:00 175.3 cm [facility] Body weight 2022-10-02 03:02:00 104.327 kg [facility] BMI 2022-10-02 03:02:00 33.97 kg/m2 [facility] Systolic blood pressure 2022-06-19 02:42:00 134 mm[Hg] [facility] Diastolic blood pressure 2022-06-19 02:42:00 79 mm[Hg] [facility] Heart rate 2022-06-19 02:42:00 73 /min [facility] Body temperature 2022-06-19 02:42:00 36.56 Zoie [facility] Respiratory rate 2022-06-19 02:42:00 18 /min [facility] Oxygen saturation in Arterial blood by Pulse oximetry 2022-06-19 02:42:00 96 /min [facility] Body weight 2022-06-18 22:19:00 104.327 kg [facility] Procedures Procedure Date / Time Performed Performing Clinician Source AUTHORIZATION FOR RELEASE OF PHI 2022-12-24 05:01:00 Doctor Unassigned, [place] [facility] CT CERVICAL SPINE WO CONTRAST 2022-11-12 20:31:51 Jesus Wood [facility] MR CERVICAL SPINE WO CONTRAST 2022-10-16 17:31:52 Isa Arnold [facility] PATIENT QUESTIONNAIRE 2022-10-09 06:01:00 Doctor Unassigned, [place] [facility] PATIENT QUESTIONNAIRE 2022-10-07 06:01:00 Doctor Unassigned, [place] [facility] NOTICE OF PRIVACY PRACTICES 2022-10-02 02:50:31 Doctor Unassigned, [place] [facility] CONSENT/REFUSAL FOR DIAGNOSIS AND TREATMENT 2022-10-02 02:49:50 Doctor Unassigned, [place] [facility] URINALYSIS 2022-06-19 00:45:00 Suleman Rojas [facility] COMP. METABOLIC PANEL ([id number]) 2022-06-19 00:23:00 Suleman Rojas [facility] CBC WITH DIFF 2022-06-19 00:23:00 Suleman Rojas [facility] CT ABDOMEN PELVIS WO CONTRAST 2022-06-19 00:04:00 Suleman Rojas [facility] Encounters Start Date/Time End Date/Time Encounter Type Admission Type Attending Clinicians Care Facility Care Department Encounter ID Source 2023-05-11 13:00:00 2023-05-11 13:00:00 Outpatient JOSELYN NGO [facility] [id number] [facility] 2023-03-03 13:30:00 2023-03-03 13:30:00 Outpatient LENARD CALLAHAN [facility] [id number] [facility] 2023-01-14 08:45:00 2023-01-14 09:33:59 Outpatient YUE MOSQUERA [facility] [id number] [facility] 2023-01-14 08:45:00 2023-01-14 09:33:59 Ancillary Visit Jesse Montero Craig L [facility] 1.2.840.114 350.1.13.10 4.2.7.2.686 [id number] [facility] 2023-01-07 07:15:00 2023-01-07 08:00:00 Ancillary Visit Jesse Montero Craig L [facility] 1.2840.114 350.1.13.10 4.2.7.2.686 [id number] [facility] 2023-01-07 00:00:00 2023-01-07 00:00:00 Telephone Ed [facility] HAYLEY?[facility] 1.2840.114 350.1.13.10 4.2.7.2.686 [id number] [facility] 2023-01-04 00:00:00 2023-01-04 00:00:00 [facility] 1.0.114 350.1.13.10 4.2.7.2.686 [id number] [facility] 2023-01-01 16:00:00 2023-01-01 16:55:00 Ancillary Visit Teri Montero Craig L [facility] 1.2840.114 350.1.13.10 4.2.7.2.686 [id number] [facility] 2022-12-24 00:00:00 2022-12-24 00:00:00 Orders Only Doctor Unassigned, [place] [facility] 1.2840.114 350.1.13.10 4.2.7.2.686 [id number] [facility] 2022-12-09 00:00:00 2022-12-09 00:00:00 Case Management Rabia Lopez [facility] 1.20.114 350.1.13.10 4.2.7.2.686 [id number] [facility] 2022-12-05 13:00:00 2022-12-05 13:44:19 Outpatient R JOSE ANTONIO MENDEZ [facility] [id number] [facility] 2022-12-05 13:00:00 2022-12-05 13:44:19 Office Visit Jose Antonio Mendez [facility] 1.2.840.114 350.1.13.10 4.2.7.2.686 [id number] [facility] 2022-11-26 13:45:00 2022-11-26 14:45:26 Outpatient YUE MOSQUERA [facility] [id number] [facility] 2022-11-26 13:45:00 2022-11-26 14:45:26 Ancillary Visit Neda Saldana Craig L [facility] 1.2.840.114 350.1.13.10 4.2.7.2.686 [id number] [facility] 2022-11-19 00:00:00 2022-11-19 00:00:00 Telephone Jose Antonio [facility] 1.2.840.114 350.1.13.10 4.2.7.2.686 [id number] [facility] 2022-11-19 00:00:00 2022-11-19 00:00:00 [facility] 1.2.840.114 350.1.13.10 4.2.7.2.686 [id number] [facility] 2022-11-12 14:02:06 2022-11-12 23:59:00 Outpatient R MENDEZ BRADY [facility] [id number] [facility] 2022-11-12 14:02:06 2022-11-12 23:59:00 Hospital Encounter Alijanipour , [facility] 1.2.840.114 350.1.13.10 4.2.7.2.686 [id number] [facility] 2022-11-07 00:00:00 2022-11-07 00:00:00 [facility] 1.2.840.114 350.1.13.10 4.2.7.2.686 [id number] [facility] 2022-11-06 13:30:00 2022-11-06 14:32:12 Outpatient R JOSE ANTONIO [facility] [id number] [facility] 2022-11-06 13:30:00 2022-11-06 14:32:12 [facility] 1.2840.114 350.1.13.10 4.2.7.2.686 [id number] [facility] 2022-11-06 00:00:00 2022-11-06 00:00:00 [facility]Out[facility] 1.2.840.114 350.1.13.10 4.2.7.2.686 [id number] [facility] 2022-10-20 00:00:00 2022-10-20 00:00:00 [facility] 1.2.840.114 350.1.13.10 4.2.7.2.686 [id number] [facility] 2022-10-17 00:00:00 2022-10-17 00:00:00 Telephone Aleks Casey [facility] 1.2840.114 350.1.13.10 4.2.7.2.686 [id number] [facility] 2022-10-16 10:24:37 2022-10-16 23:59:00 Outpatient R JOSE ANTONIO MENDEZ [facility] [id number] [facility] 2022-10-16 10:24:37 2022-10-16 23:59:00 Hospital Encounter Jose Antonio [facility] 1.840.114 350.1.13.10 4.2.7.2.686 [id number] [facility] 2022-10-16 00:00:00 2022-10-16 00:00:00 Cas Mercado [facility] 1.840.114 350.1.13.10 4.2.7.2.686 [id number] [facility] 2022-10-09 14:45:00 2022-10-09 16:15:12 [address] JOSE AN[address] [facility] [id number] [facility] 2022-10-09 14:45:00 2022-10-09 16:15:12 Office Visit Karenalinda [facility] 1.0.114 350.1.13.10 4.2.7.2.686 [id number] [facility] 2022-10-09 00:00:00 2022-10-09 00:00:00 Orders Only Doctor Unassigned, [place] [facility] 1.840.114 350.1.13.10 4.2.7.2.686 [id number] [facility] 2022-10-09 00:00:00 2022-10-09 00:00:00 Telephone Caronlinda [facility] 1.840.114 350.1.13.10 4.2.7.2.686 [id number] [facility] 2022-10-07 16:15:52 2022-10-07 23:59:00 Hospital Encounter Vida Easley [facility] 1.2.840.114 350.1.13.10 4.2.7.2.686 [id number] [facility] 2022-10-07 16:15:47 2022-10-07 23:59:00 Hospital Encounter Vida Easley [facility] 1.2.840.114 350.1.13.10 4.2.7.2.686 [id number] [facility] 2022-10-07 16:15:47 2022-10-07 23:59:00 [id number] 2022-10-07 16:10:00 2022-10-07 17:35:01 Office Visit Tracee Vida [facility] 1.2.840.114 350.1.13.10 4.2.7.2.686 [id number] [facility] 2022-10-06 09:00:00 2022-10-06 09:15:00 Office Visit Aleks Casey James [facility] 1.2.840.114 350.1.13.10 4.2.7.2.686 [id number] [facility] 2022-10-06 09:00:00 2022-10-06 09:00:00 Outpatient CAS MOTTA [facility] [id number] [facility] 2022-10-01 21:09:00 2022-10-01 22:37:00 Emergency X TEODORO COTO [facility] ERT [id number] [facility] 2022-10-01 21:09:00 2022-10-01 22:37:00 Emergency Coto, Teodoro S [facility] 1.114 350.1.13.10 4.2.7.2.686 [id number] [facility] 2022-09-24 00:00:00 2022-09-24 00:00:00 Outpatient AJAY_Jaime kitchen_Al_ AO AO [id number] [facility] 2022-06-18 17:20:00 2022-06-18 22:23:00 Emergency X BOBSULEMAN [facility] ERT [id number] [facility] 2022-06-18 17:20:00 2022-06-18 22:23:00 Emergency [facility]uleman [facility] 1..114 350.1.13.10 4.2.7.2.686 [id number] [facility] 2021-11-23 16:30:00 2021-11-23 16:30:00 Outpatient DON NATH [facility] [id number] [facility] 2020-11-30 17:20:00 2020-11-30 17:20:00 Outpatient JAMILAH MCNAIR [facility] [id number] [facility] 2020-11-30 16:56:52 2020-11-30 17:16:52 Laboratory Only Lab, Adc Fam Pob I Jamilah Mcgee [facility] [address] 1.114 350.1.13.10 4.2.7.2.686 [id number] [facility] 2020-11-30 00:00:00 2020-11-30 00:00:00 Letter (Out) Doctor Unassigned, [place] [facility] 1.114 350.1.13.10 4.2.7.2.686 [id number] [facility]
--- NOTE | 2023-11-04 10:27 | ER ---
Nurse's Notes [facility] Name: Christo Mcknight Age: 38 yrs Sex: Male : 1985 Arrival Date: 11/04/2023 Time: 09:36 Bed 14 Private MD: Diagnosis: Cellulitis of buttock-ligature by hair of a skin tag Presentation: 11/04 10:00 Chief complaint: Patient states: Perineum skin tag for at least 3 months. tried to ll1 take it off last night, had some bleeding. Coronavirus screen: Client denies travel out of the [place] in the last 14 days. At this time, the client does not indicate any symptoms associated with coronavirus-19. Ebola Screen: Patient denies travel to an Ebola-affected area in the 21 days before illness onset. Initial Sepsis Screen: Does the patient meet any 2 criteria? No. Patient's initial sepsis screen is negative. Does the patient have a suspected source of infection? Yes: Skin breakdown/wound. Risk Assessment: Do you want to hurt yourself or someone else? Patient reports no desire to harm self or others. Onset of symptoms was October 31, 2023. 10:00 Method Of Arrival: Ambulatory ll1 10:00 Acuity: TAMY 3 ll1 Triage Assessment: 10:00 General: Appears in no apparent distress. uncomfortable, Behavior is calm, cooperative, bp appropriate for age. Pain: Complains of pain in pelvis. Historical: - Allergies: 09:59 No Known Allergies; ll1 - PMHx: 09:59 ACUTE MANIC DEPPRESIION; Bipolar disorder; Schizophrenia; ll1 - PSHx: 09:59 head injury; ll1 - Immunization history:: Adult Immunizations up to date. - Social history:: Smoking status: Patient reports the use of cigarette tobacco products, smokes one-half pack cigarettes per day. - Family history:: not pertinent. Screenin:00 [facility] ED Fall Risk Assessment (Adult) History of falling in the last 3 months, bp including since admission No falls in past 3 months (0 pts). Abuse screen: Denies threats or abuse. Denies injuries from another. Nutritional screening: No deficits noted. Tuberculosis screening: No symptoms or risk factors identified. Assessment: 10:00 General: SEE TRIAGE NOTE. bp 11:00 [facility]. bp Vital Signs: 10:00 BP 133 / 95; Pulse 83; Resp 17; Temp 97.4; Pulse Ox 99% ; Pain 7/10; ll1 10:00 Pain Scale: Adult ll1 ED Course: 09:41 Patient arrived in ED. im 09:42 Kamari Young MD is Attending Physician. fredo 10:02 Triage completed. ll1 10:02 Arm band placed on Patient placed in an exam room, on a stretcher. ll1 10:09 Anil Griffiths, RN is Primary Nurse. bp 10:24 Bird Rick MD is Referral Physician. fredo 11:00 Patient has correct armband on for positive identification. bp 11:00 No provider procedures requiring assistance completed. Patient did not have IV access bp during this emergency room visit. Administered Medications: 10:33 Drug: Trimethoprim-Sulfamethoxazole PO (160 mg-800 mg (DS) 1 tablet PO once Route: PO; bp 11:11 Follow up: Response: No adverse reaction bp 10:34 Drug: Ciprofloxacin PO 500 mg PO once Route: PO; bp 11:11 Follow up: Response: No adverse reaction bp Medication: 11:00 VIS not applicable for this client. bp Outcome: 10:26 Discharge ordered by . fredo 11:00 Discharged to home ambulatory, bp 11:00 Condition: stable 11:00 Discharge instructions given to patient, Instructed on discharge instructions, follow up and referral plans. medication usage, wound care, Demonstrated understanding of instructions, follow-up care, medications, wound care, Prescriptions given X 2, 11:11 Patient left the ED. bp Signatures: Kamari Young MD MD cha Peltier, Brian, RN RN Dimitry Joy RN RN [facility] Carina Alfaro
--- NOTE | 2023-11-04 10:27 | EDPHYS ---
Physician Documentation [facility] Name: Christo Mcknight Age: 38 yrs Sex: Male : 1985 Arrival Date: 11/04/2023 Time: 09:36 Bed 14 Private MD: DEBBIE Physician Kamari Young HPI: 11/04 10:20 This 38 yrs old Male presents to ER via Ambulatory with complaints of skin fredo tag in groin area. 10:20 the patient presents with a swollen area of the pelvis. Description: The affected area fredo is small, confluent. Onset: The symptoms/episode began/occurred this morning, last night. Possible cause(s): skin tag strangulated. Associated signs and symptoms: The patient has no apparent associated signs or symptoms. Severity of symptoms: At their worst the symptoms were moderate, in the emergency department the symptoms are unchanged. The patient has not experienced similar symptoms in the past. Historical: - Allergies: 09:59 No Known Allergies; ll1 - PMHx: 09:59 ACUTE MANIC DEPPRESIION; Bipolar disorder; Schizophrenia; ll1 - PSHx: 09:59 head injury; ll1 - Immunization history:: Adult Immunizations up to date. - Social history:: Smoking status: Patient reports the use of cigarette tobacco products, smokes one-half pack cigarettes per day. - Family history:: not pertinent. ROS: 10:20 Constitutional: Negative for fever, chills, and weight loss, Eyes: Negative for injury, fredo pain, redness, and discharge, ENT: Negative for injury, pain, and discharge, Neck: Negative for injury, pain, and swelling, Cardiovascular: Negative for chest pain, palpitations, and edema, Respiratory: Negative for shortness of breath, cough, wheezing, and pleuritic chest pain, Abdomen/GI: Negative for abdominal pain, nausea, vomiting, diarrhea, and constipation, Back: Negative for injury and pain, : Negative for injury, bleeding, discharge, and swelling, MS/Extremity: Negative for injury and deformity, Neuro: Negative for headache, weakness, numbness, tingling, and seizure, Psych: Negative for depression, anxiety, suicide ideation, homicidal ideation, and hallucinations, Allergy/Immunology: Negative for hives, rash, and allergies, Endocrine: Negative for neck swelling, polydipsia, polyuria, polyphagia, and marked weight changes, Hematologic/Lymphatic: Negative for swollen nodes, abnormal bleeding, and unusual bruising, 10:20 Skin: Positive for swelling, at perineal skin tag, ligature, Exam: 10:20 Constitutional: This is a well developed, well nourished patient who is awake, alert, fredo and in no acute distress. Head/Face: Normocephalic, atraumatic. Eyes: Pupils equal round and reactive to light, extra-ocular motions intact. Lids and lashes normal. Conjunctiva and sclera are non-icteric and not injected. Cornea within normal limits. Periorbital areas with no swelling, redness, or edema. ENT: Nares patent. No nasal discharge, no septal abnormalities noted. Tympanic membranes are normal and external auditory canals are clear. Oropharynx with no redness, swelling, or masses, exudates, or evidence of obstruction, uvula midline. Mucous membranes moist. Neck: Trachea midline, no thyromegaly or masses palpated, and no cervical lymphadenopathy. Supple, full range of motion without nuchal rigidity, or vertebral point tenderness. No Meningismus. Chest/axilla: Normal chest wall appearance and motion. Nontender with no deformity. No lesions are appreciated. Cardiovascular: Regular rate and rhythm with a normal S1 and S2. No gallops, murmurs, or rubs. Normal PMI, no JVD. No pulse deficits. Respiratory: Lungs have equal breath sounds bilaterally, clear to auscultation and percussion. No rales, rhonchi or wheezes noted. No increased work of breathing, no retractions or nasal flaring. Abdomen/GI: Soft, non-tender, with normal bowel sounds. No distension or tympany. No guarding or rebound. No evidence of tenderness throughout. Back: No spinal tenderness. No costovertebral tenderness. Full range of motion. Male : Normal genitalia with no discharge or lesions. MS/ Extremity: Pulses equal, no cyanosis. Neurovascular intact. Full, normal range of motion. Neuro: Awake and alert, GCS 15, oriented to person, place, time, and situation. Cranial nerves II-XII grossly intact. Motor strength 5/5 in all extremities. Sensory grossly intact. Cerebellar exam normal. Normal gait. Psych: Awake, alert, with orientation to person, place and time. Behavior, mood, and affect are within normal limits. 10:20 Skin: induration, that is mild is noted, injury, skin tag hair ligature, Vital Signs: 10:00 BP 133 / 95; Pulse 83; Resp 17; Temp 97.4; Pulse Ox 99% ; Pain 7/10; ll1 10:00 Pain Scale: Adult ll1 Procedures: 10:23 Performed skin tag ligature, hair removed. [facility] MDM: 09:42 Patient medically screened. [facility] 10:23 Differential diagnosis: abscess, cellulitis. Data reviewed: vital signs, nurses notes. [facility] Consideration of Admission/Observation Escalation of care including admission/observation considered. I considered the following discharge prescriptions or medication management in the emergency department Medications were administered in the Emergency Department. See MAR. Test considered but Not performed: Labs: no labs. Care significantly affected by the following chronic conditions: bipolar, schizo. 11/04 10:20 Order name: Dressing - Wound; Complete Time: 10:33 [facility] 11/04 10:20 Order name: Gloves, Sterile; Complete Time: 10:33 [facility] 11/04 10:20 Order name: Setup Suture Tray; Complete Time: 10:33 [facility] Administered Medications: 10:33 Drug: Trimethoprim-Sulfamethoxazole PO (160 mg-800 mg (DS) 1 tablet PO once Route: PO; bp 11:11 Follow up: Response: No adverse reaction bp 10:34 Drug: Ciprofloxacin PO 500 mg PO once Route: PO; bp 11:11 Follow up: Response: No adverse reaction bp Disposition Summary: 11/04/23 10:26 Discharge Ordered Notes: Location: Home [facility] Problem: new [facility] Symptoms: have improved [facility] Condition: Stable [facility] Diagnosis - Cellulitis of buttock - ligature by hair of a skin tag [facility] Followup: [facility] - With: Bird Rick MD - When: 2 - 3 days - Reason: Recheck today's complaints, Continuance of care, Re-evaluation by your physician Discharge Instructions: - Discharge Summary Sheet [facility] - Cellulitis, Adult [facility] - How to Take a Sitz Bath [facility] - Skin Tag, Adult [facility] Forms: - Medication Reconciliation Form [facility] - Thank You Letter [facility] - Antibiotic Education [facility] - Prescription Opioid Use [facility] - Patient Portal Instructions [facility] - Leadership Thank You Letter [facility] Prescriptions: - Cipro 500 mg Oral Tablet - take 1 tablet ORAL route every 12 hours for 7 days; 14 tablet; Refills: 0, fredo Product Selection Permitted - Bactrim DS 800-160 mg Oral Tablet - take 1 tablet ORAL route every 12 hours for 7 days; 14 tablet; Refills: 0, fredo Product Selection Permitted Signatures: Kamari Young MD MD cha Peltier, Brian RN RN Dimitry Heath RN RN ll1
[2023-11-05 20:13] VITALS: BP 133/95; TEMP 97.4; O2SAT 99
== END ==
LOC: ER 09:36
DX: L03.317 Cellulitis of buttock (principal)

== ENCOUNTER 2024-03-24 15:38 | Emergency (ER) | payer OTHER, SELFPAY ==
--- OUTSIDE RECORDS SUMMARY | 2024-03-24 15:40 | XMS REPORT | Continuity of Care Document ---
Author Name Unknown Address [address] [facility] [place] [address] [facility] Address [address] [facility] [address] [place] [address] Care Team Providers Care Iron Caster Name Role Phone ALEKS CASEY Primary Care Physician Unavailab JOSELYN Schneider Attending Clinician Unavailab MENDEZ Don Attending Clinician Unavailab LENARD Lopes Attending Clinician Unavailable YUE FIGUEROA Attending Clinician Unavailchris Montero PTA, Jesse Carrera Attending Clinician UnavailYue Davies MD Attending Clinician [phone] Aleks Casey MD Attending Clinician [phone] Teri Montero PTA Attending Clinician Unavail able Doctor Unassigned, [place] Attending Clinician U Rabia Fairbanks PTA Attending Clinician Unav Mendez Resendiz MD Attending Clinician [phone] Neda Saldana PT Attending Clinician Un available Cas Alcaraz MD Attending Clinician + [phone] Vida Easley MD Attending Clinician +- [phone] VIDA EASLEY Attending Clinician CAS Hartman Attending Clinician TEDOORO Villela Attending Clinician Unavailable Teodoro Ortiz Attending Clinician [phone] AJAY_Tara Attending Clinician Unavail able SULEMAN ROJAS Attending Clinician Unavailable Suleman Bhakta Attending Clinician [phone] DON FRITZ Attending Clinician Unavailable JAMILAH MCGEE Attending Clinician Unavailable Lab, Adc Fam Pob I Attending Clinician Unavailab Jamilah Alcocer Attending Clinician [phone] TRINIDADTHELMA HOUGHYA Admitting Clinician Unavailab scar Mullins_Al_ Admitting Clinician Unavail able SULEMAN ROJAS Admitting Clinician Unavailable Payers Payer Name Policy Type Policy Number Effective Date Expirati on Date Source [employer] [id number] 2022 00:00:00 MEDICARE PART A \T\ B [id number] 2018 00:00:00 Problems Condition Name Condition Details Condition Category Status Onset Date Resolution Date Last Treatment Date Treating Clinician Comments Source No known active problems No known active problems Disease [facility] Allergies, Adverse Reactions, Alerts Allergy Name Allergy Type Status Severity Reaction(s) Onset Date Inactive Date Treating Clinician Comments Source NO KNOWN ALLERGIE S Drug Class Active [facility] Social History Social Habit Start Date Stop Date Quantity Comments Source History of tobacco use Cigarette Smoker [facility] Exposure to SARS-CoV-2 (event) 2022-11-25 00:00:00 2022-12-05 12:36:00 Not sure [facility] Tobacco use and exposure 2022-10-07 00:00:00 2022-10-07 00:00:00 Smokeless tobacco non-user [facility] Sex Assigned At 1985 00:00:00 1985 00:00:00 [facility] Smoking Status Start Date Stop Date Source Tobacco smoking consumption unknown [facility] Smokes tobacco daily 2022-10-07 00:00:00 [facility] Medications Ordered Medication Name Filled Medication Name Start Date Stop Date Current Medication? Ordering Clinician Indication Dosage Frequency Signature (SIG) Comments Components Source gabapentin 300 mg capsule 01-07 00:00: 00 Yes [id number] 300mg Take 1 capsule by mouth in the morning and 1 capsule at noon and 1 capsule in the evening. [facility] LISINOPRIL 10 mg tablet 01-07 00:00: 00 Yes [id number] 10mg TAKE 1 TABLET BY MOUTH IN THE MORNING [facility] cyclobenzap rine 10 mg tablet 10-20 00:00: 00 Yes [id number] 10mg Take 1 tablet by mouth 3 (three) times daily with meals as needed for Muscle Spasms. [facility] meloxicam 15 mg tablet 10-20 00:00: 00 Yes [id number] 15mg Take 1 tablet by mouth in the morning. [facility] gabapentin 300 mg capsule 10-20 00:00: 00 01-07 00:00 :00 No [id number] 300mg Take 1 capsule by mouth in the morning and 1 capsule at noon and 1 capsule in the evening. [facility] methocarbam oL 500 mg tablet 10-09 00:00: 00 11-09 05:59 :00 No [id number] 500mg Take 1 tablet by mouth 4 (four) times daily for 30 days. [facility] meloxicam 15 mg tablet 10-09 00:00: 00 10-20 00:00 :00 No [id number] 15mg Take 1 tablet by mouth in the morning. [facility] HYDROcodone -acetaminop hen (NORCO) 10-325 mg tablet 10-09 00:00: 00 10-17 05:59 :00 No [id number] 1{tbl} Take 1 tablet by mouth every 6 (six) hours as needed (Patient to take pill 30 minutes before MRI begins.) for up to 7 days. Indication s: acute pain [facility] lisinopriL 10 mg tablet 10-06 00:00: 00 01-07 00:00 :00 No [id number] 10mg Take 1 tablet by mouth in the morning. [facility] gabapentin 300 mg capsule 10-06 00:00: 00 10-20 00:00 :00 No [id number] 300mg Take 1 capsule by mouth in the morning and 1 capsule at noon and 1 capsule in the evening. [facility] HYDROcodone -acetaminop hen (NORCO) 10-325 mg tablet 1 tablet 10-02 04:45: 00 10-02 03:49 :00 No 1{tbl} 1 tablet, Oral, ONCE, 1 dose, On Thu10/01/22 at 2245, Routine [facility] ketorolac (TORADOL) injection 60 mg 10-02 04:30: 00 10-02 03:49 :00 No 60mg 60 mg, Intramuscu lar, ONCE, 1 dose, On Thu10/01/22 at 2230, Routine [facility] ketorolac 10 mg tablet 10-01 00:00: 00 Yes [id number] 10mg Take 1 tablet by mouth every 6 (six) hours as needed for Pain (scale 4-6). [facility] traMADoL 50 mg tablet 10-01 00:00: 00 Yes [id number] 50mg Take 1 tablet by mouth every 6 (six) hours as needed for Pain (scale 7-10). Indication s: acute pain [facility] methylPREDN ISolone 4 mg tablets 10-01 00:00: 00 Yes [id number] Take by mouth SEE-INSTRU CTIONS. follow package directions [facility] NaCl 0.9% (NS) bolus infusion 1,000 mL 06-19 01:15: 00 06-19 02:59 :00 No 1000mL at 999 mL/hr, 1,000 mL, IV Infusion, ONCE, 1 dose, On Thu06/18/22 at 2015, MARCIANO [facility] ibuprofen 800 mg tablet 06-18 00:00: 00 Yes [id number] 800mg Take 1 tablet by mouth every 8 (eight) hours as needed for Pain (scale 4-6). [facility] cyclobenzap rine 10 mg tablet 06-18 00:00: 00 10-20 00:00 :00 No [id number] 10mg Take 1 tablet by mouth 3 (three) times daily with meals as needed for Muscle Spasms. [facility] sucralfate 1 gram tablet 06-18 00:00: 00 07-03 04:59 :00 No [id number] 1g Take 1 tablet by mouth before meals and at bedtime for 14 days. [facility] Vital Signs Vital Name Observation Time Observation Value Comments Mckenzie veliz Systolic blood pressure 2022-12-05 19:13:00 148 mm[Hg] Pt states he did not take his medication for BP. [facility] Diastolic blood pressure 2022-12-05 19:13:00 102 mm[Hg] Pt states he did not take his medication for BP. [facility] Heart rate 2022-12-05 19:13:00 81 /min [facility] Body temperature 2022-12-05 19:10:00 35.67 Zoie [facility] Respiratory rate 2022-12-05 19:10:00 24 /min [facility] Body height 2022-12-05 19:10:00 175.3 cm [facility] Body weight 2022-12-05 19:10:00 119.886 kg [facility] BMI 2022-12-05 19:10:00 39.03 kg/m2 [facility] Oxygen saturation in Arterial blood by Pulse oximetry 2022-12-05 19:10:00 97 /min [facility] Systolic blood pressure 2022-11-06 19:21:00 117 mm[Hg] [facility] Diastolic blood pressure 2022-11-06 19:21:00 76 mm[Hg] [facility] Heart rate 2022-11-06 19:21:00 92 /min [facility] Body temperature 2022-11-06 19:21:00 35.78 Zoie [facility] Body height 2022-11-06 19:21:00 175.3 cm [facility] Body weight 2022-11-06 19:21:00 121.7 kg [facility] BMI 2022-11-06 19:21:00 39.62 kg/m2 [facility] Systolic blood pressure 2022-10-09 21:02:00 117 mm[Hg] [facility] Diastolic blood pressure 2022-10-09 21:02:00 74 mm[Hg] [facility] Heart rate 2022-10-09 21:02:00 108 /min [facility] Body temperature 2022-10-09 21:02:00 36.33 Zoie [facility] Body height 2022-10-09 21:02:00 175.3 cm [facility] Body weight 2022-10-09 21:02:00 121.11 kg [facility] BMI 2022-10-09 21:02:00 39.43 kg/m2 [facility] Body temperature 2022-10-07 22:13:00 36.56 Zoie [facility] Body height 2022-10-07 22:13:00 175.3 cm [facility] Body weight 2022-10-07 22:13:00 117.935 kg [facility] BMI 2022-10-07 22:13:00 38.40 kg/m2 [facility] Systolic blood pressure 2022-10-06 15:04:00 154 mm[Hg] [facility] Diastolic blood pressure 2022-10-06 15:04:00 113 mm[Hg] [facility] Heart rate 2022-10-06 14:49:00 79 /min [facility] Body temperature 2022-10-06 14:49:00 36.67 Zoie [facility] Body height 2022-10-06 14:49:00 175.3 cm [facility] Body weight 2022-10-06 14:49:00 118.389 kg [facility] BMI 2022-10-06 14:49:00 38.54 kg/m2 [facility] Systolic blood pressure 2022-10-02 04:33:07 137 mm[Hg] [facility] Diastolic blood pressure 2022-10-02 04:33:07 74 mm[Hg] [facility] Heart rate 2022-10-02 04:33:07 116 /min [facility] Body temperature 2022-10-02 04:33:07 36.89 Zoie [facility] Respiratory rate 2022-10-02 04:33:07 17 /min [facility] Oxygen saturation in Arterial blood by Pulse oximetry 2022-10-02 04:33:07 95 /min [facility] Body height 2022-10-02 03:02:00 175.3 cm [facility] Body weight 2022-10-02 03:02:00 104.327 kg [facility] BMI 2022-10-02 03:02:00 33.97 kg/m2 [facility] Systolic blood pressure 2022-06-19 02:42:00 134 mm[Hg] [facility] Diastolic blood pressure 2022-06-19 02:42:00 79 mm[Hg] [facility] Heart rate 2022-06-19 02:42:00 73 /min [facility] Body temperature 2022-06-19 02:42:00 36.56 Zoie [facility] Respiratory rate 2022-06-19 02:42:00 18 /min [facility] Oxygen saturation in Arterial blood by Pulse oximetry 2022-06-19 02:42:00 96 /min [facility] Body weight 2022-06-18 22:19:00 104.327 kg [facility] Procedures Procedure Date / Time Performed Performing Clinician Source AUTHORIZATION FOR RELEASE OF PHI 2022-12-24 05:01:00 Doctor Unassigned, [place] [facility] CT CERVICAL SPINE WO CONTRAST 2022-11-12 20:31:51 Jesus Wood [facility] MR CERVICAL SPINE WO CONTRAST 2022-10-16 17:31:52 Isa Arnold [facility] PATIENT QUESTIONNAIRE 2022-10-09 06:01:00 Doctor Unassigned, [place] [facility] PATIENT QUESTIONNAIRE 2022-10-07 06:01:00 Doctor Unassigned, [place] [facility] NOTICE OF PRIVACY PRACTICES 2022-10-02 02:50:31 Doctor Unassigned, [place] [facility] CONSENT/REFUSAL FOR DIAGNOSIS AND TREATMENT 2022-10-02 02:49:50 Doctor Unassigned, [place] [facility] URINALYSIS 2022-06-19 00:45:00 Suleman Rojas [facility] COMP. METABOLIC PANEL ([id number]) 2022-06-19 00:23:00 Suleman Rojas [facility] CBC WITH DIFF 2022-06-19 00:23:00 Suleman Rojas [facility] CT ABDOMEN PELVIS WO CONTRAST 2022-06-19 00:04:00 Suleman Rojas [facility] Encounters Start Date/Time End Date/Time Encounter Type Admission Type Attending Clinicians Care Facility Care Department Encounter ID Source 2023-05-11 13:00:00 2023-05-11 13:00:00 Outpatient R JOSELYN CALLEJAS [facility] [id number] [facility] 2023-03-03 13:30:00 2023-03-03 13:30:00 Outpatient R AUSTIN LENARD [facility] [id number] [facility] 2023-01-14 08:45:00 2023-01-14 09:33:59 Outpatient YUE MOSQUERA [facility] [id number] [facility] 2023-01-14 08:45:00 2023-01-14 09:33:59 Ancillary Visit Jesse Montero Craig L [facility] 1.2840.114 350.1.13.10 4.2.7.2.686 [id number] [facility] 2023-01-07 07:15:00 2023-01-07 08:00:00 Ancillary Visit Jesse Montero Craig L [facility] 1.2840.114 350.1.13.10 4.2.7.2.686 [id number] [facility] 2023-01-07 00:00:00 2023-01-07 00:00:00 [facility] 1.2840.114 350.1.13.10 4.2.7.2.686 [id number] [facility] 2023-01-04 00:00:00 2023-01-04 00:00:00 Refill Ed [facility] 1.2840.114 350.1.13.10 4.2.7.2.686 [id number] [facility] 2023-01-01 16:00:00 2023-01-01 16:55:00 Ancillary Visit Teri Montero Craig L [facility] 1..840.114 350.1.13.10 4.2.7.2.686 [id number] [facility] 2022-12-24 00:00:00 2022-12-24 00:00:00 Orders Only Doctor Unassigned, [place] [facility] 1.840.114 350.1.13.10 4.2.7.2.686 [id number] [facility] 2022-12-09 00:00:00 2022-12-09 00:00:00 Case Management Rabia Lopez [facility] 1..840.114 350.1.13.10 4.2.7.2.686 [id number] [facility] 2022-12-05 13:00:00 2022-12-05 13:44:19 Outpatient R MENDEZ BRADY [facility] [id number] [facility] 2022-12-05 13:00:00 2022-12-05 13:44:19 Office Visit Mendez Brady [facility] 1..840.114 350.1.13.10 4.2.7.2.686 [id number] [facility] 2022-11-26 13:45:00 2022-11-26 14:45:26 Outpatient YUE MOSQUERA [facility] [id number] [facility] 2022-11-26 13:45:00 2022-11-26 14:45:26 Ancillary Visit Neda Saldana Craig L [facility] 1.2.840.114 350.1.13.10 4.2.7.2.686 [id number] [facility] 2022-11-19 00:00:00 2022-11-19 00:00:00 Telephone [facility] [place] [facility] 1.2.840.114 350.1.13.10 4.2.7.2.686 [id number] [facility] 2022-11-19 00:00:00 2022-11-19 00:00:[address] [facility] 1.2.840.114 350.1.13.10 4.2.7.2.686 [id number] [facility] 2022-11-12 14:02:06 2022-11-12 23:59:00 Outpatient R JOSE [facility] [id number] [facility] 2022-11-12 14:02:06 2022-11-12 23:59:00 Hospital Encounter Jose Antonio [facility] 1.2.840.114 350.1.13.10 4.2.7.2.686 [id number] [facility] 2022-11-07 00:00:00 2022-11-07 00:00:00 [facility] 1.2.840.114 350.1.13.10 4.2.7.2.686 [id number] [facility] 2022-11-06 13:30:00 2022-11-06 14:32:12 Outpatient R JOSE [facility] [id number] [facility] 2022-11-06 13:30:00 2022-11-06 14:32:12 [facility] SPECIALTY [facility] 1.2.840.114 350.1.13.10 4.2.7.2.686 [id number] [facility] 2022-11-06 00:00:00 2022-11-06 00:00:00 Letter (Out) Jose Antonio [facility] 1.2.840.114 350.1.13.10 4.2.7.2.686 [id number] [facility] 2022-10-20 00:00:00 2022-10-20 00:00:00 Telephone Jose Antonio [facility] [place] [facility] 1.2.840.114 350.1.13.10 4.2.7.2.686 [id number] [facility] 2022-10-17 00:00:00 2022-10-17 00:00:00 Telephone Aleks Casey [facility] 1.2840.114 350.1.13.10 4.2.7.2.686 [id number] [facility] 2022-10-16 10:24:37 2022-10-16 23:59:00 Outpatient R JOSE [facility] [id number] [facility] 2022-10-16 10:24:37 2022-10-16 23:59:00 Hospital Encounter Jose Antonio [facility] 1.2840.114 350.1.13.10 4.2.7.2.686 [id number] [facility] 2022-10-16 00:00:00 2022-10-16 00:00:00 Cas Mercado [facility] 1.2.840.114 350.1.13.10 4.2.7.2.686 [id number] [facility] 2022-10-09 14:45:00 2022-10-09 16:15:12 Outpatient R KARENALINDA MENDEZ [facility] [id number] [facility] 2022-10-09 14:45:00 2022-10-09 16:15:12 Office Visit Karenalinda [facility] [place] [facility] 1.2.840.114 350.1.13.10 4.2.7.2.686 [id number] [facility] 2022-10-09 00:00:00 2022-10-09 00:00:00 Orders Only Doctor Unassigned, [place] [facility] 1.2.840.114 350.1.13.10 4.2.7.2.686 [id number] [facility] 2022-10-09 00:00:00 2022-10-09 00:00:00 Telephone Karenalinda [facility] AT [facility] 1.2.840.114 350.1.13.10 4.2.7.2.686 [id number] [facility] 2022-10-07 16:15:52 2022-10-07 23:59:00 Hospital Encounter Tracee Vida [facility] [place] [facility] 1.2.840.114 350.1.13.10 4.2.7.2.686 [id number] [facility] 2022-10-07 16:15:47 2022-10-07 23:59:00 Hospital Encounter [facility] [place] [facility] 1.2.840.114 350.1.13.10 4.2.7.2.686 [id number] [facility] 2022-10-07 16:15:47 2022-10-07 23:59:00 Outpatient R VIDA EASLEY [facility] [id number] [facility] 2022-10-07 16:10:00 2022-10-07 17:35:01 Office Visit Tracee Vida Trevino [facility] 1.84.114 350.1.13.10 4.2.7.2.686 [id number] [facility] 2022-10-06 09:00:00 2022-10-06 09:15:00 Office Visit Aleks Casey James [facility] 1.84.114 350.1.13.10 4.2.7.2.686 [id number] [facility] 2022-10-06 09:00:00 2022-10-06 09:00:00 Outpatient CAS MOTTA [facility] [id number] [facility] 2022-10-01 21:09:00 2022-10-01 22:37:00 Emergency X TEODORO COTO [facility] ERT [id number] [facility] 2022-10-01 21:09:00 2022-10-01 22:37:00 Emergency Teodoro Coto [facility] 1.84.114 350.1.13.10 4.2.7.2.686 [id number] [facility] 2022-09-24 00:00:00 2022-09-24 00:00:00 Outpatient AJAY_Jaime Barnard [facility] AO [id number] [facility] 2022-06-18 17:20:00 2022-06-18 22:23:00 Emergency X SULEMAN ROJAS [facility] ERT [id number] [facility] 2022-06-18 17:20:00 2022-06-18 22:23:00 Emergency Suleman Rojas [facility] 1..114 350.1.13.10 4.2.7.2.686 [id number] [facility] 2021-11-23 16:30:00 2021-11-23 16:30:00 Outpatient Marla FRITZ DON [facility] [id number] [facility] 2020-11-30 17:20:00 2020-11-30 17:20:00 Outpatient JAMILAH MCNAIR [facility] [id number] [facility] 2020-11-30 16:56:52 2020-11-30 17:16:52 Laboratory Only Lab, [facility] .840.114 350.1.13.10 4.2.7.2.686 [id number] [facility] 2020-11-30 00:00:00 2020-11-30 00:00:00 Letter (Out) Doctor Unassigned, [place] [facility] .840.114 350.1.13.10 4.2.7.2.686 [id number] [facility]
[2024-03-24] MEDS ORDERED: dexAMETHasone 10 MG/ML VIAL ONE (18:17)
[2024-03-24 19:32] LABS: SARS-CoV-2 Antigen CONTROL BLUE LINE VIS/BG OK; SARS-CoV-2 Antigen Rapid Res Negative (Negative)
--- NOTE | 2024-03-24 19:41 | EDPHYS ---
Physician Documentation [facility] Name: Christo Mcknight Age: 38 yrs Sex: Male : 1985 Arrival Date: 03/24/2024 Time: 15:38 Bed 11 Private MD: ED Physician Kaushik Maldonado HPI: 03/24 19:50 This 38 yrs old Male presents to ER via Ambulatory with complaints of Breathing kb Difficulty, Sore Throat, Pain All Over. 19:50 Pt is a 38 year old male who presents for cough, sinus congestion, body aches and sore kb throat for 3-4 days. Unknown fever, but family thinks he had one today. Pt reports difficulty breathing due to sinus congestion. . Historical: - Allergies: 15:48 No Known Allergies; ll1 - PMHx: 15:48 Bipolar disorder; ACUTE MANIC DEPPRESIION; Schizophrenia; ll1 - PSHx: 15:48 head injury; ll1 - Immunization history:: Adult Immunizations up to date. - Infectious Disease History:: Denies. - Social history:: Smoking status: Patient reports the use of cigarette tobacco products, smokes one-half pack cigarettes per day, Reported history of juuling and/or vaping. ROS: 19:49 Constitutional: As per HPI kb Exam: 19:49 Constitutional: This is a well developed, well nourished patient who is awake, alert, kb and in no acute distress. Head/Face: Normocephalic, atraumatic. Cardiovascular: Regular rate Respiratory: Respirations even and unlabored. No increased work of breathing. Talking in full sentences Skin: Warm, dry with normal turgor. Normal color. MS/ Extremity: Pulses equal, no cyanosis. Neurovascular intact. Full, normal range of motion. Neuro: Awake and alert, GCS 15, oriented to person, place, time, and situation. Moves all extremities. Normal gait. 19:49 ENT: External ear(s): are unremarkable, Ear canal(s): are normal, TM's: are normal, Posterior pharynx: Airway: normal, no evidence of obstruction, Tonsils: bilaterally enlarged, with erythema, swelling, that is moderate, erythema, that is mild, Vital Signs: 15:46 BP 162 / 96; Pulse 114; Resp 20; Temp 99; Pulse Ox 97% on R/A; Weight 117.93 kg; Height ll1 5 ft. 9 in. ; Pain 7/10; 19:01 BP 151 / 77; Pulse 105; Resp 16; Pulse Ox 98% on R/A; tl4 20:02 BP 149 / 80; Pulse 102; Resp 16; Temp 98.9(O); Pulse Ox 97% on R/A; tl4 15:46 Body Mass Index 38.39 (117.93 kg, 175.26 cm) ll1 15:46 Pain Scale: Adult ll1 MDM: 15:41 Patient medically screened. kb 19:50 Differential diagnosis: flu, covid, sinusitis, uri, strep, tonsillitis, [employer]. Data kb reviewed: vital signs, nurses notes. Test considered but Not performed: CT: ct soft tissue neck considered but tonsils swollen bilaterally and equally. Counseling: I had a detailed discussion with the patient and/or guardian regarding the historical points, exam findings, and any diagnostic results supporting the discharge/admit diagnosis, lab results, the need for outpatient follow up, a family practitioner, to return to the emergency department if symptoms worsen or persist or if there are any questions or concerns that arise at home. 19:51 Historians other than the Patient: Family Member: family. 03/24 15:48 Order name: Flu; Complete Time: 19:37 03/24 15:48 Order name: Strep 03/24 15:48 Order name: SARS-COV-2 Antigen Rapid; Complete Time: 19:37 03/24 19:34 Order name: Throat Culture EDMS Administered Medications: 18:45 Drug: Dexamethasone IM 10 mg IM once Route: IM; Site: left deltoid; tl4 20:00 Follow up: Response: No adverse reaction tl4 Disposition: 03/25 08:58 Co-signature as Attending Physician, Kaushik Maldonado MD I reviewed the patient's care rt provided by the Advanced Practice Provider and agree with the diagnosis and treatment plan. Disposition Summary: 03/24/24 19:40 Discharge Ordered Notes: Location: Home Condition: Stable Diagnosis - Acute tonsillitis, unspecified kb Followup: kb - With: Emergency Department - When: As needed - Reason: Worsening of condition Followup: kb - With: Private Physician - When: 2 - 3 days - Reason: Recheck today's complaints, Continuance of care, Re-evaluation by your physician Discharge Instructions: - Discharge Summary Sheet kb - Tonsillitis, [id number] kb Forms: - Medication Reconciliation Form kb - Antibiotic Education kb - Prescription Opioid Use kb - Patient Portal Instructions kb - Leadership Thank You Letter kb Prescriptions: - Augmentin 875-125 mg Oral Tablet - take 1 tablet ORAL route every 12 hours for 10 days; 20 tablet; Refills: 0, kb Product Selection Permitted Signatures: Dispatcher [employer] EDCarmen Castellanos FNP-C BOWEN-Dimitry Hu, RN RN ll1 Kaushik Maldonado MD MD rt Kwame Blankenship, RN RN tl4
--- NOTE | 2024-03-24 19:41 | ER ---
Nurse's Notes [facility] Name: Christo Mcknight Age: 38 yrs Sex: Male : 1985 Arrival Date: 03/24/2024 Time: 15:38 Bed 11 Private MD: Diagnosis: Acute tonsillitis, unspecified Presentation: 03/24 15:46 Chief complaint: Patient states: Congestion, SOB, sore throat, body aches for 3-4 days. ll1 Coronavirus screen: Client denies travel out of the [place] in the last 14 days. congestion, cough unrelated to allergies, fatigue, muscle pain, sore throat, Client presents with at least one sign or symptom that may indicate coronavirus-19. Standard/surgical mask placed on the client. Ebola Screen: Patient denies travel to an Ebola-affected area in the 21 days before illness onset. Initial Sepsis Screen: Does the patient meet any 2 criteria? No. Patient's initial sepsis screen is negative. Does the patient have a suspected source of infection? No. Patient's initial sepsis screen is negative. Risk Assessment: Do you want to hurt yourself or someone else? Patient reports no desire to harm self or others. Onset of symptoms was March 21, 2024. 15:46 Method Of Arrival: Ambulatory ll1 15:46 Acuity: TAMY 3 ll1 Triage Assessment: 15:48 General: Appears uncomfortable, Behavior is calm, cooperative, appropriate for age. ll1 Pain: Complains of pain in throat Quality of pain is described as aching. EENT: Reports nasal congestion pain when swallowing. Respiratory: Reports shortness of breath cough that is. Musculoskeletal: Reports body aches. 19:03 Respiratory: Onset: The symptoms/episode began/occurred gradually, the patient has mild tl4 shortness of breath. Historical: - Allergies: 15:48 No Known Allergies; ll1 - PMHx: 15:48 Bipolar disorder; ACUTE MANIC DEPPRESIION; Schizophrenia; ll1 - PSHx: 15:48 head injury; ll1 - Immunization history:: Adult Immunizations up to date. - Infectious Disease History:: Denies. - Social history:: Smoking status: Patient reports the use of cigarette tobacco products, smokes one-half pack cigarettes per day, Reported history of juuling and/or vaping. Screenin:02 [facility] Fall Risk Assessment (Adult) History of falling in the last 3 months, tl4 including since admission No falls in past 3 months (0 pts) Confusion or Disorientation No (0 pts) Intoxicated or Sedated No (0 pts) Impaired Gait No (0 pts) Mobility Assist Device Used No (0 pt) Altered Elimination No (0 pt) Score/Fall Risk Level 0 - 2 = Low Risk Oriented to surroundings, Maintained a safe environment, Educated pt \T\ family on fall prevention, incl call for assistance when getting out of bed, Assessed \T\ reinforced patient's understanding of fall precautions. Abuse screen: Denies threats or abuse. Denies injuries from another. Nutritional screening: No deficits noted. Tuberculosis screening: No symptoms or risk factors identified. Assessment: 18:58 General: Appears ill, Behavior is calm, cooperative. Pain: Complains of pain in neck, tl4 generalized body aches. Neuro: Level of Consciousness is awake, alert, obeys commands, Oriented to person, place, time, situation, Moves all extremities. Full function. Cardiovascular: Rhythm is regular. Cardiovascular: Capillary refill < 3 seconds Patient's skin is warm and dry. Respiratory: Airway is patent Respiratory effort is even, unlabored, Respiratory pattern is regular, symmetrical, Breath sounds are clear bilaterally. GI: No signs and/or symptoms were reported involving the gastrointestinal system. : No signs and/or symptoms were reported regarding the genitourinary system. EENT: No signs and/or symptoms were reported regarding the EENT system. Derm: No signs and/or symptoms reported regarding the dermatologic system. Musculoskeletal: No signs and/or symptoms reported regarding the musculoskeletal system. 20:06 Reassessment: Patient and/or family updated on plan of care and expected duration. Pain tl4 level reassessed. Patient is alert, oriented x 3, equal unlabored respirations, skin warm/dry/pink. Pt denies any needs at this time. Family at bedside. Will continue to monitor. Vital Signs: 15:46 BP 162 / 96; Pulse 114; Resp 20; Temp 99; Pulse Ox 97% on R/A; Weight 117.93 kg; Height ll1 5 ft. 9 in. ; Pain 7/10; 19:01 BP 151 / 77; Pulse 105; Resp 16; Pulse Ox 98% on R/A; tl4 20:02 BP 149 / 80; Pulse 102; Resp 16; Temp 98.9(O); Pulse Ox 97% on R/A; tl4 15:46 Body Mass Index 38.39 (117.93 kg, 175.26 cm) ll1 15:46 Pain Scale: Adult ll1 ED Course: 15:40 Patient arrived in ED. mg5 15:41 Carmen Mcnair FNP-C is [facility]. kb 15:41 Kaushik Maldonado MD is Attending Physician. kb 15:48 Triage completed. ll1 15:48 Arm band placed on. ll1 18:14 Kwame Blankenship, LEIGH is Primary Nurse. tl4 18:56 SARS-COV-2 Antigen Rapid Sent. tl4 18:56 Strep Sent. tl4 18:56 Flu Sent. tl4 19:02 Patient has correct armband on for positive identification. Placed in gown. Bed in low tl4 position. Call light in reach. Side rails up X2. Adult w/ patient. Provided Education on: ed process, call patrick. Client placed on continuous cardiac and pulse oximetry monitoring. NIBP monitoring applied. Door closed. Noise minimized. Lights dimmed. Moved to private room. Warm blanket given. Pillow given. 19:03 No provider procedures requiring assistance completed. Patient did not have IV access tl4 during this emergency room visit. Administered Medications: 18:45 Drug: Dexamethasone IM 10 mg IM once Route: IM; Site: left deltoid; tl4 20:00 Follow up: Response: No adverse reaction tl4 Medication: 19:02 VIS not applicable for this client. tl4 Outcome: 19:40 Discharge ordered by . manjit 20:07 Discharged to home ambulatory, with family, tl4 20:07 Condition: stable 20:07 Discharge instructions given to patient, family, Instructed on discharge instructions, follow up and referral plans. medication usage, wound care, Demonstrated understanding of instructions, follow-up care, medications, wound care, Prescriptions given X 1, 20:09 Patient left the ED. tl4 Signatures: Carmen Mcnair FNP-C FNP-Dimitry Hu RN RN 1 Lanette Reynolds mg5 Kwame Blankenship RN RN tl4 Corrections: (The following items were deleted from the chart) 15:48 15:46 BP 162 / 96; Pulse 114bpm; Resp 20bpm; Pulse Ox 97% RA; Temp 99F; ll1 ll1
[2024-03-24 21:22] VITALS: BP 149/80; TEMP 98.9; O2SAT 97
== END 2024-03-24 20:09 | disposition home or self-care (01) ==
LOC: ER 15:38
DX: J03.90 Acute tonsillitis, unspecified (principal); F17.210 Nicotine dependence, cigarettes, uncomplicated
CPT/HCPCS: 36415; 87070; 87081; 87804; 87811; 96372; 99284; J1100

== ENCOUNTER 2024-09-21 10:59 | Emergency (ER) | payer SELFPAY ==
--- OUTSIDE RECORDS SUMMARY | 2024-09-21 11:01 | XMS REPORT | Continuity of Care Document ---
Author Name Unknown Address [address] [facility] [place] [address] [facility] Address [address] [facility] [address] [place] [address] Care Team Providers Care Rewinder Operator Name Role Phone ALEKS CASEY Primary Care Physician Unavailab JOSELYN Schneider Attending Clinician Unavailab MENDEZ Don Attending Clinician Unavailab LENARD Lopes Attending Clinician Unavailable YUE FIGUEROA Attending Clinician Unavailchris Montero PTA, Jesse Carrera Attending Clinician UnavailYue Davies MD Attending Clinician [phone] Aleks Casey MD Attending Clinician [phone] Teri Montero PTA Attending Clinician Unavail able Doctor Unassigned, Brewer Attending Clinician U Rabia Fairbanks PTA Attending Clinician Unav Mendez Resendiz MD Attending Clinician [phone] Neda Saldana PT Attending Clinician Un available Cas Alcaraz MD Attending Clinician + [phone] Vida Easley MD Attending Clinician +- [phone] VIDA EASLEY Attending Clinician CAS Hartman Attending Clinician TEODORO Villela Attending Clinician Unavailable Teodoro Ortiz Attending Clinician [phone] AJAY_Tara Attending Clinician Unavail able SULEMAN ROJAS Attending Clinician Unavailable Suleman Bhakta Attending Clinician [phone] DON FRITZ Attending Clinician Unavailable JAMILAH MCGEE Attending Clinician Unavailable Lab, Adc Fam Pob I Attending Clinician Unavailab Jamilah Alcocer Attending Clinician [phone] TRINIDADTHELMA HOUGHYA Admitting Clinician Unavailab scar Mullins_Al_ Admitting Clinician Unavail able SULEMAN ROJAS Admitting Clinician Unavailable Payers Payer Name Policy Type Policy Number Effective Date Expirati on Date Source [employer] [id number] 2022 00:00:00 MEDICARE PART A \T\ B [id number] 2018 00:00:00 Problems Condition Name Condition Details Condition Category Status Onset Date Resolution Date Last Treatment Date Treating Clinician Comments Source No known active problems No known active problems Disease [facility] Allergies, Adverse Reactions, Alerts Allergy Name Allergy Type Status Severity Reaction(s) Onset Date Inactive Date Treating Clinician Comments Source NO KNOWN ALLERGIE S Drug Class Active [facility] Social History Social Habit Start Date Stop Date Quantity Comments Source History of tobacco use Cigarette Smoker [facility] Exposure to SARS-CoV-2 (event) 2022-11-25 00:00:00 2022-12-05 12:36:00 Not sure [facility] Tobacco use and exposure 2022-10-07 00:00:00 2022-10-07 00:00:00 Smokeless tobacco non-user [facility] Sex Assigned At 1985 00:00:00 1985 00:00:00 [facility] Smoking Status Start Date Stop Date Source Tobacco smoking consumption unknown [facility] Smokes tobacco daily 2022-10-07 00:00:00 [facility] Medications Ordered Medication Name Filled Medication Name Start Date Stop Date Current Medication? Ordering Clinician Indication Dosage Frequency Signature (SIG) Comments Components Source gabapentin 300 mg capsule 01-07 00:00: 00 Yes [id number] 300mg Take 1 capsule by mouth in the morning and 1 capsule at noon and 1 capsule in the evening. [facility] LISINOPRIL 10 mg tablet 01-07 00:00: 00 Yes [id number] 10mg TAKE 1 TABLET BY MOUTH IN THE MORNING [facility] cyclobenzap rine 10 mg tablet 10-20 00:00: 00 Yes [id number] 10mg Take 1 tablet by mouth 3 (three) times daily with meals as needed for Muscle Spasms. [facility] meloxicam 15 mg tablet 10-20 00:00: 00 Yes [id number] 15mg Take 1 tablet by mouth in the morning. [facility] gabapentin 300 mg capsule 10-20 00:00: 00 01-07 00:00 :00 No [id number] 300mg Take 1 capsule by mouth in the morning and 1 capsule at noon and 1 capsule in the evening. [facility] methocarbam oL 500 mg tablet 10-09 00:00: 00 11-09 05:59 :00 No [id number] 500mg Take 1 tablet by mouth 4 (four) times daily for 30 days. [facility] meloxicam 15 mg tablet 10-09 00:00: 00 10-20 00:00 :00 No [id number] 15mg Take 1 tablet by mouth in the morning. [facility] HYDROcodone -acetaminop hen (NORCO) 10-325 mg tablet 10-09 00:00: 00 10-17 05:59 :00 No [id number] 1{tbl} Take 1 tablet by mouth every 6 (six) hours as needed (Patient to take pill 30 minutes before MRI begins.) for up to 7 days. Indication s: acute pain [facility] lisinopriL 10 mg tablet 10-06 00:00: 00 01-07 00:00 :00 No [id number] 10mg Take 1 tablet by mouth in the morning. [facility] gabapentin 300 mg capsule 10-06 00:00: 00 10-20 00:00 :00 No [id number] 300mg Take 1 capsule by mouth in the morning and 1 capsule at noon and 1 capsule in the evening. [facility] HYDROcodone -acetaminop hen (NORCO) 10-325 mg tablet 1 tablet 10-02 04:45: 00 10-02 03:49 :00 No 1{tbl} 1 tablet, Oral, ONCE, 1 dose, On Thu10/01/22 at 2245, Routine [facility] ketorolac (TORADOL) injection 60 mg 10-02 04:30: 00 10-02 03:49 :00 No 60mg 60 mg, Intramuscu lar, ONCE, 1 dose, On Thu10/01/22 at 2230, Routine [facility] ketorolac 10 mg tablet 10-01 00:00: 00 Yes [id number] 10mg Take 1 tablet by mouth every 6 (six) hours as needed for Pain (scale 4-6). [facility] traMADoL 50 mg tablet 10-01 00:00: 00 Yes [id number] 50mg Take 1 tablet by mouth every 6 (six) hours as needed for Pain (scale 7-10). Indication s: acute pain [facility] methylPREDN ISolone 4 mg tablets 10-01 00:00: 00 Yes [id number] Take by mouth SEE-INSTRU CTIONS. follow package directions [facility] NaCl 0.9% (NS) bolus infusion 1,000 mL 06-19 01:15: 00 06-19 02:59 :00 No 1000mL at 999 mL/hr, 1,000 mL, IV Infusion, ONCE, 1 dose, On Thu06/18/22 at 2015, MARCIANO [facility] ibuprofen 800 mg tablet 06-18 00:00: 00 Yes [id number] 800mg Take 1 tablet by mouth every 8 (eight) hours as needed for Pain (scale 4-6). [facility] cyclobenzap rine 10 mg tablet 06-18 00:00: 00 10-20 00:00 :00 No [id number] 10mg Take 1 tablet by mouth 3 (three) times daily with meals as needed for Muscle Spasms. [facility] sucralfate 1 gram tablet 06-18 00:00: 00 07-03 04:59 :00 No [id number] 1g Take 1 tablet by mouth before meals and at bedtime for 14 days. [facility] Vital Signs Vital Name Observation Time Observation Value Comments Mckenzie veliz Systolic blood pressure 2022-12-05 19:13:00 148 mm[Hg] Pt states he did not take his medication for BP. [facility] Diastolic blood pressure 2022-12-05 19:13:00 102 mm[Hg] Pt states he did not take his medication for BP. [facility] Heart rate 2022-12-05 19:13:00 81 /min [facility] Body temperature 2022-12-05 19:10:00 35.67 Zoie [facility] Respiratory rate 2022-12-05 19:10:00 24 /min [facility] Body height 2022-12-05 19:10:00 175.3 cm [facility] Body weight 2022-12-05 19:10:00 119.886 kg [facility] BMI 2022-12-05 19:10:00 39.03 kg/m2 [facility] Oxygen saturation in Arterial blood by Pulse oximetry 2022-12-05 19:10:00 97 /min [facility] Systolic blood pressure 2022-11-06 19:21:00 117 mm[Hg] [facility] Diastolic blood pressure 2022-11-06 19:21:00 76 mm[Hg] [facility] Heart rate 2022-11-06 19:21:00 92 /min [facility] Body temperature 2022-11-06 19:21:00 35.78 Zoie [facility] Body height 2022-11-06 19:21:00 175.3 cm [facility] Body weight 2022-11-06 19:21:00 121.7 kg [facility] BMI 2022-11-06 19:21:00 39.62 kg/m2 [facility] Systolic blood pressure 2022-10-09 21:02:00 117 mm[Hg] [facility] Diastolic blood pressure 2022-10-09 21:02:00 74 mm[Hg] [facility] Heart rate 2022-10-09 21:02:00 108 /min [facility] Body temperature 2022-10-09 21:02:00 36.33 Zoie [facility] Body height 2022-10-09 21:02:00 175.3 cm [facility] Body weight 2022-10-09 21:02:00 121.11 kg [facility] BMI 2022-10-09 21:02:00 39.43 kg/m2 [facility] Body temperature 2022-10-07 22:13:00 36.56 Zoie [facility] Body height 2022-10-07 22:13:00 175.3 cm [facility] Body weight 2022-10-07 22:13:00 117.935 kg [facility] BMI 2022-10-07 22:13:00 38.40 kg/m2 [facility] Systolic blood pressure 2022-10-06 15:04:00 154 mm[Hg] [facility] Diastolic blood pressure 2022-10-06 15:04:00 113 mm[Hg] [facility] Heart rate 2022-10-06 14:49:00 79 /min [facility] Body temperature 2022-10-06 14:49:00 36.67 Zoie [facility] Body height 2022-10-06 14:49:00 175.3 cm [facility] Body weight 2022-10-06 14:49:00 118.389 kg [facility] BMI 2022-10-06 14:49:00 38.54 kg/m2 [facility] Systolic blood pressure 2022-10-02 04:33:07 137 mm[Hg] [facility] Diastolic blood pressure 2022-10-02 04:33:07 74 mm[Hg] [facility] Heart rate 2022-10-02 04:33:07 116 /min [facility] Body temperature 2022-10-02 04:33:07 36.89 Zoie [facility] Respiratory rate 2022-10-02 04:33:07 17 /min [facility] Oxygen saturation in Arterial blood by Pulse oximetry 2022-10-02 04:33:07 95 /min [facility] Body height 2022-10-02 03:02:00 175.3 cm [facility] Body weight 2022-10-02 03:02:00 104.327 kg [facility] BMI 2022-10-02 03:02:00 33.97 kg/m2 [facility] Systolic blood pressure 2022-06-19 02:42:00 134 mm[Hg] [facility] Diastolic blood pressure 2022-06-19 02:42:00 79 mm[Hg] [facility] Heart rate 2022-06-19 02:42:00 73 /min [facility] Body temperature 2022-06-19 02:42:00 36.56 Zoie [facility] Respiratory rate 2022-06-19 02:42:00 18 /min [facility] Oxygen saturation in Arterial blood by Pulse oximetry 2022-06-19 02:42:00 96 /min [facility] Body weight 2022-06-18 22:19:00 104.327 kg [facility] Procedures Procedure Date / Time Performed Performing Clinician Source AUTHORIZATION FOR RELEASE OF PHI 2022-12-24 05:01:00 Doctor Unassigned, Brewer [facility] CT CERVICAL SPINE WO CONTRAST 2022-11-12 20:31:51 Jesus Wood [facility] MR CERVICAL SPINE WO CONTRAST 2022-10-16 17:31:52 Isa Arnold [facility] PATIENT QUESTIONNAIRE 2022-10-09 06:01:00 Doctor Unassigned, Brewer [facility] PATIENT QUESTIONNAIRE 2022-10-07 06:01:00 Doctor Unassigned, Brewer [facility] NOTICE OF PRIVACY PRACTICES 2022-10-02 02:50:31 Doctor Unassigned, Brewer [facility] CONSENT/REFUSAL FOR DIAGNOSIS AND TREATMENT 2022-10-02 02:49:50 Doctor Unassigned, Brewer [facility] URINALYSIS 2022-06-19 00:45:00 Suleman Rojas [facility] COMP. METABOLIC PANEL ([id number]) 2022-06-19 00:23:00 Suleman Rojas [facility] CBC WITH DIFF 2022-06-19 00:23:00 Suleman Rojas [facility] CT ABDOMEN PELVIS WO CONTRAST 2022-06-19 00:04:00 Suleman Rojas [facility] Encounters Start Date/Time End Date/Time Encounter Type Admission Type Attending Clinicians Care Facility Care Department Encounter ID Source 2023-05-11 13:00:00 2023-05-11 13:00:00 Outpatient R JOSELYN CALLEJAS [facility] [id number] [facility] 2023-03-03 13:30:00 2023-03-03 13:30:00 Outpatient R AUSTIN LENARD [facility] [id number] [facility] 2023-01-14 08:45:00 2023-01-14 09:33:59 Outpatient YUE MOSQUERA [facility] [id number] [facility] 2023-01-14 08:45:00 2023-01-14 09:33:59 Ancillary Visit Jesse Montero Craig L [facility] 1.2840.114 350.1.13.10 4.2.7.2.686 [id number] [facility] 2023-01-07 07:15:00 2023-01-07 08:00:00 Ancillary Visit Jesse Montero Craig L [facility] 1.2840.114 350.1.13.10 4.2.7.2.686 [id number] [facility] 2023-01-07 00:00:00 2023-01-07 00:00:00 [facility] 1.2840.114 350.1.13.10 4.2.7.2.686 [id number] [facility] 2023-01-04 00:00:00 2023-01-04 00:00:00 Refill Ed [facility] 1.2840.114 350.1.13.10 4.2.7.2.686 [id number] [facility] 2023-01-01 16:00:00 2023-01-01 16:55:00 [facility]illary [facility] 1..840.114 350.1.13.10 4.2.7.2.686 [id number] [facility] 2022-12-24 00:00:00 2022-12-24 00:00:00 Orders Only Doctor Unassigned, Brewer [facility] 1.840.114 350.1.13.10 4.2.7.2.686 [id number] [facility] 2022-12-09 00:00:00 2022-12-09 00:00:00 Case Management Rabia Lopez [facility] 1..840.114 350.1.13.10 4.2.7.2.686 [id number] [facility] 2022-12-05 13:00:00 2022-12-05 13:44:19 Outpatient R MENDEZ BRADY [facility] [id number] [facility] 2022-12-05 13:00:00 2022-12-05 13:44:19 Office Visit Mendez Brady [facility] 1..840.114 350.1.13.10 4.2.7.2.686 [id number] [facility] 2022-11-26 13:45:00 2022-11-26 14:45:26 Outpatient YUE MOSQUERA [facility] [id number] [facility] 2022-11-26 13:45:00 2022-11-26 14:45:26 Ancillary Visit Neda Saldana Craig L [facility] 1.2.840.114 350.1.13.10 4.2.7.2.686 [id number] [facility] 2022-11-19 00:00:00 2022-11-19 00:00:00 [facility] [place] [facility] 1.2.840.114 350.1.13.10 4.2.7.2.686 [id number] [facility] 2022-11-19 00:00:00 2022-11-19 00:00:00 Telephone [facility] 1.2.840.114 350.1.13.10 4.2.7.2.686 [id number] [facility] 2022-11-12 14:02:06 2022-11-12 23:59:00 Outpatient R JOSE ANTONIO [facility] [id number] [facility] 2022-11-12 14:02:06 2022-11-12 23:59:00 Hospital Encounter Jose Antonio [facility] 1.2.840.114 350.1.13.10 4.2.7.2.686 [id number] [facility] 2022-11-07 00:00:00 2022-11-07 00:00:00 [facility]phone [facility] AT [facility] 1.2.840.114 350.1.13.10 4.2.7.2.686 [id number] [facility] 2022-11-06 13:30:00 2022-11-06 14:32:12 Outpatient R JOSE ANTONIO [facility] [id number] [facility] 2022-11-06 13:30:00 2022-11-06 14:32:12 [facility] 1.2.840.114 350.1.13.10 4.2.7.2.686 [id number] [facility] 2022-11-06 00:00:00 2022-11-06 00:00:00 Letter (Out) Jose Antonio [facility] 1.2.840.114 350.1.13.10 4.2.7.2.686 [id number] [facility] 2022-10-20 00:00:00 2022-10-20 00:00:00 Telephone Jose Antonio [facility] [place] [facility] 1.2.840.114 350.1.13.10 4.2.7.2.686 [id number] [facility] 2022-10-17 00:00:00 2022-10-17 00:00:00 Telephone Aleks Casey [facility] 1.2840.114 350.1.13.10 4.2.7.2.686 [id number] [facility] 2022-10-16 10:24:37 2022-10-16 23:59:00 Outpatient R JOSE ANTONIO [facility] [id number] [facility] 2022-10-16 10:24:37 2022-10-16 23:59:00 Hospital Encounter Jose Antonio [facility] 1.2840.114 350.1.13.10 4.2.7.2.686 [id number] [facility] 2022-10-16 00:00:00 2022-10-16 00:00:00 Cas Mercado [facility] 1.2.840.114 350.1.13.10 4.2.7.2.686 [id number] [facility] 2022-10-09 14:45:00 2022-10-09 16:15:12 Outpatient R KARENALINDA MENDEZ [facility] [id number] [facility] 2022-10-09 14:45:00 2022-10-09 16:15:12 Office Visit Karenalinda [facility] [place] [facility] 1.2.840.114 350.1.13.10 4.2.7.2.686 [id number] [facility] 2022-10-09 00:00:00 2022-10-09 00:00:00 Orders Only Doctor Unassigned, Brewer [facility] 1.2.840.114 350.1.13.10 4.2.7.2.686 [id number] [facility] 2022-10-09 00:00:00 2022-10-09 00:00:[address] [facility] AT [facility] 1.2.840.114 350.1.13.10 4.2.7.2.686 [id number] [facility] 2022-10-07 16:15:52 2022-10-07 23:59:00 Hospital Encounter Tracee Vida [facility] [place] [facility] 1.2.840.114 350.1.13.10 4.2.7.2.686 [id number] [facility] 2022-10-07 16:15:47 2022-10-07 23:59:00 Hospital Encounter [place] [facility] [place] [facility] 1.2.840.114 350.1.13.10 4.2.7.2.686 [id number] [facility] 2022-10-07 16:15:47 2022-10-07 23:59:00 Outpatient R VIDA EASLEY [facility] [id number] [facility] 2022-10-07 16:10:00 2022-10-07 17:35:01 Office Visit Traece Vida Trevino [facility] 1.84.114 350.1.13.10 4.2.7.2.686 [id number] [facility] 2022-10-06 09:00:00 2022-10-06 09:15:00 Office Visit Aleks Casey [facility] 1.84.114 350.1.13.10 4.2.7.2.686 [id number] [facility] 2022-10-06 09:00:00 2022-10-06 09:00:00 Outpatient CAS MOTTA [facility] [id number] [facility] 2022-10-01 21:09:00 2022-10-01 22:37:00 Emergency X TEODORO COTO [facility] ERT [id number] [facility] 2022-10-01 21:09:00 2022-10-01 22:37:00 Emergency Teodoro Coto [facility] 1.84.114 350.1.13.10 4.2.7.2.686 [id number] [facility] 2022-09-24 00:00:00 2022-09-24 00:00:00 Outpatient AJAY_Jaime Barnard [facility] AO [id number] [facility] 2022-06-18 17:20:00 2022-06-18 22:23:00 Emergency X SULEMAN ROJAS [facility] ERT [id number] [facility] 2022-06-18 17:20:00 2022-06-18 22:23:00 Emergency Suleman Rojas [facility] 1..114 350.1.13.10 4.2.7.2.686 [id number] [facility] 2021-11-23 16:30:00 2021-11-23 16:30:00 Outpatient Marla FRITZ DON [facility] [id number] [facility] 2020-11-30 17:20:00 2020-11-30 17:20:00 Outpatient JAMILAH MCNAIR [facility] [id number] [facility] 2020-11-30 16:56:52 2020-11-30 17:16:52 Laboratory Only Lab, [facility] .840.114 350.1.13.10 4.2.7.2.686 [id number] [facility] 2020-11-30 00:00:00 2020-11-30 00:00:00 Letter (Out) Doctor Unassigned, Brewer [facility] .840.114 350.1.13.10 4.2.7.2.686 [id number] [facility]
[2024-09-21] MEDS ORDERED: TDAP (DIPHTH,PERTUSS(ACELL),TET VAC) 0.5 ML VIAL IMVAC ONE (11:24)
--- NOTE | 2024-09-21 11:46 | EDPHYS ---
Physician Documentation [facility] Name: Christo Mcknight Age: 38 yrs Sex: Male : 1985 Arrival Date: 09/21/2024 Time: 10:59 Bed 7 Private MD: None, None ED Physician Ankur Henry HPI: 09/21 11:46 This 38 yrs old Male presents to ER via Ambulatory with complaints of Foreign Body - ms3 fish hook in thumb. 11:46 Christo Mcknight presents to the emergency department after sustaining a fish hook injury ms3 to the right thumb approximately 45 minutes ago. He reports that the injury occurred while restringing a fishing elizabeth. The patient describes his pain as varying between a 3 to a 7 on a scale of 1 to 10, fluctuating over time. The patient mentions that he has not had a tetanus shot in over 5 years.. Historical: - Allergies: 11:09 No Known Allergies; iw - PMHx: 11:08 ACUTE MANIC DEPPRESIION; Bipolar disorder; Schizophrenia; iw - PSHx: 11:08 head injury; iw - Immunization history:: Last tetanus immunization: unknown. - Infectious Disease History:: Denies. - Social history:: Smoking status: Patient reports the use of cigarette tobacco products, smokes one-half pack cigarettes per day. ROS: 11:46 Constitutional: Negative for fever, and chills. Neck: Negative for injury, pain, and ms3 swelling, Cardiovascular: Negative for chest pain, and palpitations. Respiratory: Negative for shortness of breath, cough, wheezing, and pleuritic chest pain, Abdomen/GI: Negative for abdominal pain, nausea, vomiting, diarrhea, and constipation, 11:46 Skin: Positive for Fish hook right thumb, Exam: 11:46 Constitutional: This is a well developed, well nourished patient who is awake, alert, ms3 and in no acute distress. Head/Face: Normocephalic, atraumatic. Chest/axilla: Normal chest wall appearance and motion. Nontender with no deformity. Cardiovascular: Regular rate and rhythm with a normal S1 and S2. No gallops, murmurs, or rubs. Normal PMI, no JVD. No pulse deficits. Respiratory: Lungs have equal breath sounds bilaterally, clear to auscultation and percussion. No rales, rhonchi or wheezes noted. No increased work of breathing, no retractions or nasal flaring. Abdomen/GI: Soft, non-tender, with normal bowel sounds. No distension or tympany. No guarding or rebound. No evidence of tenderness throughout. 11:46 Skin: injury, puncture(s), that are deep, of the right thumb, Fish hook through nail, Vital Signs: 11:07 BP 134 / 110; Pulse 85; Resp 16; Temp 97.6; Pulse Ox 99% ; Weight 118.84 kg; Height 5 iw ft. 9 in. ; Pain 3/10; 11:40 BP 138 / 98; Pulse 78; Resp 15; Pulse Ox 100% on R/A; ko1 11:07 Body Mass Index 38.69 (118.84 kg, 175.26 cm) iw 11:07 Pain Scale: Adult iw Procedures: 11:46 Foreign Body Removal: a fishhook, from the right thumb, by Hook run through distal tip ms3 of thumb and elayne cut. The patient tolerated the removal well. MDM: 11:45 Medical Screening Exam initiated ms3 11:46 Data reviewed: vital signs, nurses notes, and as a result, I will discharge patient. I ms3 considered the following discharge prescriptions or medication management in the emergency department Medications were administered in the Emergency Department. See MAR. Counseling: I had a detailed discussion with the patient and/or guardian regarding the historical points, exam findings, and any diagnostic results supporting the discharge/admit diagnosis, the need for outpatient follow up, to return to the emergency department if symptoms worsen or persist or if there are any questions or concerns that arise at home. Special discussion: I discussed with the patient/guardian in detail that at this point there is no indication for admission to the hospital. It is understood, however, that if the symptoms persist or worsen the patient needs to return immediately for re-evaluation. ED course: [place] removed without incident. Wound hemostatic. Patient to follow-up Dr. Alford in 2 to 3 days. Return precautions discussed include erythema, drainage, worsening symptoms, or any other concerns.. Administered Medications: 11:35 Drug: Lidocaine Infiltration (1 %) 10 ml 20 ml Infiltration once; to bedside {Note: by shruti eHnry.} Volume: 20 ml; Route: Infiltration; 11:52 Follow up: Response: No adverse reaction ko1 11:45 Drug: Boostrix Tdap IM 0.5 ml IM once; as a single dose Route: IM; Site: left deltoid; ko1 11:57 Follow up: Response: No adverse reaction; Medication administered at discharge. ko1 Disposition Summary: 09/21/24 11:45 Discharge Ordered Notes: Location: Home ms3 Condition: Stable ms3 Diagnosis - Puncture wound with foreign body of right thumb with damage to nail, subsequent ms3 encounter Followup: ms3 - With: Ld Alford DO - When: 2 - 3 days - Reason: Recheck today's complaints Discharge Instructions: - Discharge Summary Sheet ms3 - [place] Removal ms3 Forms: - Medication Reconciliation Form ms3 - Antibiotic Education ms3 - Prescription Opioid Use ms3 - Patient Portal Instructions ms3 - Leadership Thank You Letter ms3 Signatures: Gege Live RN RN iw Sims, Marcus, DO DO ms3 Crista Wilson RN RN ko1
--- NOTE | 2024-09-21 11:46 | ER ---
Nurse's Notes [facility] Name: Christo Mcknight Age: 38 yrs Sex: Male : 1985 Arrival Date: 09/21/2024 Time: 10:59 Bed 7 Private MD: None, None Diagnosis: Puncture wound with foreign body of right thumb with damage to nail, subsequent encounter Presentation: 09/21 11:07 Chief complaint: Patient states: fish hook in right thumb. Coronavirus screen: At this iw time, the client does not indicate any symptoms associated with coronavirus-19. Ebola Screen: No symptoms or risks identified at this time. Initial Sepsis Screen: Does the patient meet any 2 criteria? No. Patient's initial sepsis screen is negative. Does the patient have a suspected source of infection? No. Patient's initial sepsis screen is negative. Risk Assessment: Do you want to hurt yourself or someone else? Patient reports no desire to harm self or others. Onset of symptoms was September 21, 2024. 11:07 Method Of Arrival: Ambulatory iw 11:07 Acuity: TAMY 4 iw Historical: - Allergies: 11:09 No Known Allergies; iw - PMHx: 11:08 ACUTE MANIC DEPPRESIION; Bipolar disorder; Schizophrenia; iw - PSHx: 11:08 head injury; iw - Immunization history:: Last tetanus immunization: unknown. - Infectious Disease History:: Denies. - Social history:: Smoking status: Patient reports the use of cigarette tobacco products, smokes one-half pack cigarettes per day. Screenin:40 [facility] ED Fall Risk Assessment (Adult) History of falling in the last 3 months, ko1 including since admission No falls in past 3 months (0 pts) Confusion or Disorientation No (0 pts) Intoxicated or Sedated No (0 pts) Impaired Gait No (0 pts) Mobility Assist Device Used No (0 pt) Altered Elimination No (0 pt) Score/Fall Risk Level 0 - 2 = Low Risk Oriented to surroundings, Maintained a safe environment, Educated pt \T\ family on fall prevention, incl call for assistance when getting out of bed, Assessed \T\ reinforced patient's understanding of fall precautions, Hourly rounding (assess needs \T\ fall precautionary measures) done. Abuse screen: Denies threats or abuse. Denies injuries from another. Nutritional screening: No deficits noted. Tuberculosis screening: No symptoms or risk factors identified. Assessment: 11:15 General: Appears in no apparent distress. Behavior is calm, cooperative, appropriate ko1 for age. Pain: Complains of pain in right thumbnail. Neuro: No deficits noted. Cardiovascular: No deficits noted. Respiratory: Reports. GI: No deficits noted. : No deficits noted. EENT: No deficits noted. Derm: No deficits noted. Musculoskeletal: No deficits noted. Injury Description: Foreign body is located right thumbnail is fish hook was sustained 30-60 minutes ago. Vital Signs: 11:07 BP 134 / 110; Pulse 85; Resp 16; Temp 97.6; Pulse Ox 99% ; Weight 118.84 kg; Height 5 iw ft. 9 in. ; Pain 310; 11:40 BP 138 / 98; Pulse 78; Resp 15; Pulse Ox 100% on R/A; ko1 11:07 Body Mass Index 38.69 (118.84 kg, 175.26 cm) iw 11:07 Pain Scale: Adult iw ED Course: 11:00 Patient arrived in ED. as 11:02 None, None is Private Physician. as 11:08 Triage completed. iw 11:08 Ankur Henry DO is Attending Physician. ec2 11:08 Arm band placed on. iw 11:10 Crista Wilson, RN is Primary Nurse. ko1 11:40 Patient has correct armband on for positive identification. Bed in low position. Call ko1 light in reach. Provided Education on: removal of hook. Pulse ox on. NIBP on. 11:40 Assist provider with foreign body removal of from right thumb Set up for procedure. ko1 Performed by Ankur Henry DO Dressed with bandaid Patient tolerated well. Patient did not have IV access during this emergency room visit. 11:43 Ld Alford DO is Referral Physician. ms3 Administered Medications: 11:35 Drug: Lidocaine Infiltration (1 %) 10 ml 20 ml Infiltration once; to bedside {Note: by ko1 Dr Henry.} Volume: 20 ml; Route: Infiltration; 11:52 Follow up: Response: No adverse reaction ko1 11:45 Drug: Boostrix Tdap IM 0.5 ml IM once; as a single dose Route: IM; Site: left deltoid; ko1 11:57 Follow up: Response: No adverse reaction; Medication administered at discharge. ko1 Medication: 11:40 Vaccine Information Statement (VIS) provided today. Questions and/or concerns ko1 addressed. VIS edition date: 2016. Outcome: 11:45 Discharge ordered by . ms3 11:54 Discharged to home ambulatory, with family, ko1 11:54 Condition: stable 11:54 Discharge instructions given to patient, Instructed on discharge instructions, follow up and referral plans. Demonstrated understanding of instructions, follow-up care, 11:58 Patient left the ED. ko1 Signatures: Selene Hu Irene, RN RN iw Ankur Henry DO DO ms3 Crista Wilson, RN RN ko1 Scottie Seymour MD MD ec2 Corrections: (The following items were deleted from the chart) 11:08 11:07 Pulse 85bpm; Resp 16bpm; Pulse Ox 99%; Temp 97.6F; iw iw 11:10 11:07 Pulse 85bpm; Resp 16bpm; Pulse Ox 99%; Temp 97.6F; 118.84 kg; Height 5 ft. 9 in.; iw BMI: 38.6; Pain 310, Adult; iw
[2024-09-21 12:03] VITALS: TEMP 97.6
[2024-09-21 12:05] VITALS: BP 138/98; O2SAT 100
== END 2024-09-21 11:58 | disposition home or self-care (01) ==
LOC: ER 10:59
DX: S61.041A Puncture wound with foreign body of right thumb without damage to nail, initial encounter (principal); W45.8XXA Other foreign body or object entering through skin, initial encounter; W26.8XXA Contact with other sharp object(s), not elsewhere classified, initial encounter; Y93.89 Activity, other specified; Y92.89 Other specified places as the place of occurrence of the external cause; F17.210 Nicotine dependence, cigarettes, uncomplicated; Z23 Encounter for immunization
CPT/HCPCS: 96372; 99284

== ENCOUNTER 2024-11-16 14:41 | Emergency (ER) | payer OTHER, SELFPAY ==
--- OUTSIDE RECORDS SUMMARY | 2024-11-16 14:44 | XMS REPORT | Continuity of Care Document ---
Author Name Unknown Address [address] [facility] [place] [address] [facility] Address [address] [facility] [address] [place] [address] Care Team Providers Care Central Supply Manager Name Role Phone ALEKS CASEY Primary Care Physician Unavailab JOSELYN Schneider Attending Clinician Unavailab MENDEZ Don Attending Clinician Unavailab LENARD Lopes Attending Clinician Unavailable YUE FIGUEROA Attending Clinician Unavailchris Montero PTA, Jesse Carrera Attending Clinician UnavailYue Davies MD Attending Clinician [phone] lAeks Casey MD Attending Clinician [phone] Teri Montero PTA Attending Clinician Unavail able Doctor Unassigned, [place] Attending Clinician U Rabia Fairbanks PTA Attending Clinician Unav Mendez Resendiz MD Attending Clinician [phone] Neda Saldana PT Attending Clinician Un available Cas Alcaraz MD Attending Clinician + [phone] Vida Easley MD Attending Clinician [phone]- [phone] VIDA EASLEY Attending Clinician CAS Hartman Attending Clinician TEODORO Villela Attending Clinician Unavailable Teodoro Ortiz Attending Clinician [phone] AJAY_Tara Attending Clinician Unavail able SULEMAN ROJAS Attending Clinician Unavailable Suleman Bhakta Attending Clinician [phone] DON FRITZ Attending Clinician Unavailable JAMILAH MCGEE Attending Clinician Unavailable Lab, Adc Fam Pob I Attending Clinician Unavailab Jamilah Alcocer Attending Clinician [phone] TRINIDADTHELMA HOUGHYA Admitting Clinician Unavailab scar Mullins_Al_ Admitting Clinician Unavail able SULEMAN ROJAS Admitting Clinician Unavailable Payers Payer Name Policy Type Policy Number Effective Date Expirati on Date Source [employer] [id number] 2022 00:00:00 MEDICARE PART A \T\ B [id number] 2018 00:00:00 Problems Condition Name Condition Details Condition Category Status Onset Date Resolution Date Last Treatment Date Treating Clinician Comments Source No known active problems No known active problems Disease [facility] Allergies, Adverse Reactions, Alerts Allergy Name Allergy Type Status Severity Reaction(s) Onset Date Inactive Date Treating Clinician Comments Source NO KNOWN ALLERGIE S Drug Class Active [facility] Social History Social Habit Start Date Stop Date Quantity Comments Source History of tobacco use Cigarette Smoker [facility] Exposure to SARS-CoV-2 (event) 2022-11-25 00:00:00 2022-12-05 12:36:00 Not sure [facility] Tobacco use and exposure 2022-10-07 00:00:00 2022-10-07 00:00:00 Smokeless tobacco non-user [facility] Sex Assigned At 1985 00:00:00 1985 00:00:00 [facility] Smoking Status Start Date Stop Date Source Tobacco smoking consumption unknown [facility] Smokes tobacco daily 2022-10-07 00:00:00 [facility] Medications Ordered Medication Name Filled Medication Name Start Date Stop Date Current Medication? Ordering Clinician Indication Dosage Frequency Signature (SIG) Comments Components Source gabapentin 300 mg capsule 01-07 00:00: 00 Yes [id number] 300mg Take 1 capsule by mouth in the morning and 1 capsule at noon and 1 capsule in the evening. [facility] LISINOPRIL 10 mg tablet 01-07 00:00: 00 Yes [id number] 10mg TAKE 1 TABLET BY MOUTH IN THE MORNING [facility] cyclobenzap rine 10 mg tablet 10-20 00:00: 00 Yes [id number] 10mg Take 1 tablet by mouth 3 (three) times daily with meals as needed for Muscle Spasms. [facility] meloxicam 15 mg tablet 10-20 00:00: 00 Yes [id number] 15mg Take 1 tablet by mouth in the morning. [facility] gabapentin 300 mg capsule 10-20 00:00: 00 01-07 00:00 :00 No [id number] 300mg Take 1 capsule by mouth in the morning and 1 capsule at noon and 1 capsule in the evening. [facility] methocarbam oL 500 mg tablet 10-09 00:00: 00 11-09 05:59 :00 No [id number] 500mg Take 1 tablet by mouth 4 (four) times daily for 30 days. [facility] meloxicam 15 mg tablet 10-09 00:00: 00 10-20 00:00 :00 No [id number] 15mg Take 1 tablet by mouth in the morning. [facility] HYDROcodone -acetaminop hen (NORCO) 10-325 mg tablet 10-09 00:00: 00 10-17 05:59 :00 No [id number] 1{tbl} Take 1 tablet by mouth every 6 (six) hours as needed (Patient to take pill 30 minutes before MRI begins.) for up to 7 days. Indication s: acute pain [facility] lisinopriL 10 mg tablet 10-06 00:00: 00 01-07 00:00 :00 No [id number] 10mg Take 1 tablet by mouth in the morning. [facility] gabapentin 300 mg capsule 10-06 00:00: 00 10-20 00:00 :00 No [id number] 300mg Take 1 capsule by mouth in the morning and 1 capsule at noon and 1 capsule in the evening. [facility] HYDROcodone -acetaminop hen (NORCO) 10-325 mg tablet 1 tablet 10-02 04:45: 00 10-02 03:49 :00 No 1{tbl} 1 tablet, Oral, ONCE, 1 dose, On Thu10/01/22 at 2245, Routine [facility] ketorolac (TORADOL) injection 60 mg 10-02 04:30: 00 10-02 03:49 :00 No 60mg 60 mg, Intramuscu lar, ONCE, 1 dose, On Thu10/01/22 at 2230, Routine [facility] ketorolac 10 mg tablet 10-01 00:00: 00 Yes [id number] 10mg Take 1 tablet by mouth every 6 (six) hours as needed for Pain (scale 4-6). [facility] traMADoL 50 mg tablet 10-01 00:00: 00 Yes [id number] 50mg Take 1 tablet by mouth every 6 (six) hours as needed for Pain (scale 7-10). Indication s: acute pain [facility] methylPREDN ISolone 4 mg tablets 10-01 00:00: 00 Yes [id number] Take by mouth SEE-INSTRU CTIONS. follow package directions [facility] NaCl 0.9% (NS) bolus infusion 1,000 mL 06-19 01:15: 00 06-19 02:59 :00 No 1000mL at 999 mL/hr, 1,000 mL, IV Infusion, ONCE, 1 dose, On Thu06/18/22 at 2015, MARCIANO [facility] ibuprofen 800 mg tablet 06-18 00:00: 00 Yes [id number] 800mg Take 1 tablet by mouth every 8 (eight) hours as needed for Pain (scale 4-6). [facility] cyclobenzap rine 10 mg tablet 06-18 00:00: 00 10-20 00:00 :00 No [id number] 10mg Take 1 tablet by mouth 3 (three) times daily with meals as needed for Muscle Spasms. [facility] sucralfate 1 gram tablet 06-18 00:00: 00 07-03 04:59 :00 No [id number] 1g Take 1 tablet by mouth before meals and at bedtime for 14 days. [facility] Vital Signs Vital Name Observation Time Observation Value Comments Mckenzie veliz Systolic blood pressure 2022-12-05 19:13:00 148 mm[Hg] Pt states he did not take his medication for BP. [facility] Diastolic blood pressure 2022-12-05 19:13:00 102 mm[Hg] Pt states he did not take his medication for BP. [facility] Heart rate 2022-12-05 19:13:00 81 /min [facility] Body temperature 2022-12-05 19:10:00 35.67 Zoie [facility] Respiratory rate 2022-12-05 19:10:00 24 /min [facility] Body height 2022-12-05 19:10:00 175.3 cm [facility] Body weight 2022-12-05 19:10:00 119.886 kg [facility] BMI 2022-12-05 19:10:00 39.03 kg/m2 [facility] Oxygen saturation in Arterial blood by Pulse oximetry 2022-12-05 19:10:00 97 /min [facility] Systolic blood pressure 2022-11-06 19:21:00 117 mm[Hg] [facility] Diastolic blood pressure 2022-11-06 19:21:00 76 mm[Hg] [facility] Heart rate 2022-11-06 19:21:00 92 /min [facility] Body temperature 2022-11-06 19:21:00 35.78 Zoie [facility] Body height 2022-11-06 19:21:00 175.3 cm [facility] Body weight 2022-11-06 19:21:00 121.7 kg [facility] BMI 2022-11-06 19:21:00 39.62 kg/m2 [facility] Systolic blood pressure 2022-10-09 21:02:00 117 mm[Hg] [facility] Diastolic blood pressure 2022-10-09 21:02:00 74 mm[Hg] [facility] Heart rate 2022-10-09 21:02:00 108 /min [facility] Body temperature 2022-10-09 21:02:00 36.33 Zoie [facility] Body height 2022-10-09 21:02:00 175.3 cm [facility] Body weight 2022-10-09 21:02:00 121.11 kg [facility] BMI 2022-10-09 21:02:00 39.43 kg/m2 [facility] Body temperature 2022-10-07 22:13:00 36.56 Zoie [facility] Body height 2022-10-07 22:13:00 175.3 cm [facility] Body weight 2022-10-07 22:13:00 117.935 kg [facility] BMI 2022-10-07 22:13:00 38.40 kg/m2 [facility] Systolic blood pressure 2022-10-06 15:04:00 154 mm[Hg] [facility] Diastolic blood pressure 2022-10-06 15:04:00 113 mm[Hg] [facility] Heart rate 2022-10-06 14:49:00 79 /min [facility] Body temperature 2022-10-06 14:49:00 36.67 Zoie [facility] Body height 2022-10-06 14:49:00 175.3 cm [facility] Body weight 2022-10-06 14:49:00 118.389 kg [facility] BMI 2022-10-06 14:49:00 38.54 kg/m2 [facility] Systolic blood pressure 2022-10-02 04:33:07 137 mm[Hg] [facility] Diastolic blood pressure 2022-10-02 04:33:07 74 mm[Hg] [facility] Heart rate 2022-10-02 04:33:07 116 /min [facility] Body temperature 2022-10-02 04:33:07 36.89 Zoie [facility] Respiratory rate 2022-10-02 04:33:07 17 /min [facility] Oxygen saturation in Arterial blood by Pulse oximetry 2022-10-02 04:33:07 95 /min [facility] Body height 2022-10-02 03:02:00 175.3 cm [facility] Body weight 2022-10-02 03:02:00 104.327 kg [facility] BMI 2022-10-02 03:02:00 33.97 kg/m2 [facility] Systolic blood pressure 2022-06-19 02:42:00 134 mm[Hg] [facility] Diastolic blood pressure 2022-06-19 02:42:00 79 mm[Hg] [facility] Heart rate 2022-06-19 02:42:00 73 /min [facility] Body temperature 2022-06-19 02:42:00 36.56 Zoie [facility] Respiratory rate 2022-06-19 02:42:00 18 /min [facility] Oxygen saturation in Arterial blood by Pulse oximetry 2022-06-19 02:42:00 96 /min [facility] Body weight 2022-06-18 22:19:00 104.327 kg [facility] Procedures Procedure Date / Time Performed Performing Clinician Source AUTHORIZATION FOR RELEASE OF PHI 2022-12-24 05:01:00 Doctor Unassigned, [place] [facility] CT CERVICAL SPINE WO CONTRAST 2022-11-12 20:31:51 Jesus Wood [facility] MR CERVICAL SPINE WO CONTRAST 2022-10-16 17:31:52 Isa Arnold [facility] PATIENT QUESTIONNAIRE 2022-10-09 06:01:00 Doctor Unassigned, [place] [facility] PATIENT QUESTIONNAIRE 2022-10-07 06:01:00 Doctor Unassigned, [place] [facility] NOTICE OF PRIVACY PRACTICES 2022-10-02 02:50:31 Doctor Unassigned, [place] [facility] CONSENT/REFUSAL FOR DIAGNOSIS AND TREATMENT 2022-10-02 02:49:50 Doctor Unassigned, [place] [facility] URINALYSIS 2022-06-19 00:45:00 Suleman Rojas [facility] COMP. METABOLIC PANEL ([id number]) 2022-06-19 00:23:00 Suleman Rojas [facility] CBC WITH DIFF 2022-06-19 00:23:00 Suleman Rojas [facility] CT ABDOMEN PELVIS WO CONTRAST 2022-06-19 00:04:00 Suleman Rojas [facility] Encounters Start Date/Time End Date/Time Encounter Type Admission Type Attending Clinicians Care Facility Care Department Encounter ID Source 2023-05-11 13:00:00 2023-05-11 13:00:00 Outpatient R JOSELYN CALLEJAS [facility] [id number] [facility] 2023-03-03 13:30:00 2023-03-03 13:30:00 Outpatient R AUSTIN LENARD [facility] [id number] [facility] 2023-01-14 08:45:00 2023-01-14 09:33:59 Outpatient YUE MOSQUERA [facility] [id number] [facility] 2023-01-14 08:45:00 2023-01-14 09:33:59 Ancillary Visit Jesse Montero Craig L [facility] 1.2840.114 350.1.13.10 4.2.7.2.686 [id number] [facility] 2023-01-07 07:15:00 2023-01-07 08:00:00 Ancillary Visit Jesse Montero Craig L [facility] 1.2840.114 350.1.13.10 4.2.7.2.686 [id number] [facility] 2023-01-07 00:00:00 2023-01-07 00:00:00 [facility] 1.2840.114 350.1.13.10 4.2.7.2.686 [id number] [facility] 2023-01-04 00:00:00 2023-01-04 00:00:00 Refill Ed [facility] 1.2840.114 350.1.13.10 4.2.7.2.686 [id number] [facility] 2023-01-01 16:00:00 2023-01-01 16:55:00 Ancillary Visit Teri Montero Craig [facility] 1..840.114 350.1.13.10 4.2.7.2.686 [id number] [facility] 2022-12-24 00:00:00 2022-12-24 00:00:00 Orders Only Doctor Unassigned, [place] [facility] 1.840.114 350.1.13.10 4.2.7.2.686 [id number] [facility] 2022-12-09 00:00:00 2022-12-09 00:00:00 Case Management Rabia Lopez [facility] 1..840.114 350.1.13.10 4.2.7.2.686 [id number] [facility] 2022-12-05 13:00:00 2022-12-05 13:44:19 Outpatient R MENDEZ BRADY [facility] [id number] [facility] 2022-12-05 13:00:00 2022-12-05 13:44:19 Office Visit Mendez Brady [facility] 1..840.114 350.1.13.10 4.2.7.2.686 [id number] [facility] 2022-11-26 13:45:00 2022-11-26 14:45:26 Outpatient YUE MOSQUERA [facility] [id number] [facility] 2022-11-26 13:45:00 2022-11-26 14:45:26 Ancillary Visit Neda Saldana Craig L [facility] 1.2.840.114 350.1.13.10 4.2.7.2.686 [id number] [facility] 2022-11-19 00:00:00 2022-11-19 00:00:00 [facility] [place] 1.2.840.114 350.1.13.10 4.2.7.2.686 [id number] [facility] 2022-11-19 00:00:00 2022-11-19 00:00:00 Telephone [facility] 1.2.840.114 350.1.13.10 4.2.7.2.686 [id number] [facility] 2022-11-12 14:02:06 2022-11-12 23:59:00 Outpatient R JOSE [facility] [id number] [facility] 2022-11-12 14:02:06 2022-11-12 23:59:00 Hospital Encounter Jose Antonio [facility] 1.2.840.114 350.1.13.10 4.2.7.2.686 [id number] [facility] 2022-11-07 00:00:00 2022-11-07 00:00:00 [facility] 1.2.840.114 350.1.13.10 4.2.7.2.686 [id number] [facility] 2022-11-06 13:30:00 2022-11-06 14:32:12 Outpatient R JOSE [facility] [id number] [facility] 2022-11-06 13:30:00 2022-11-06 14:32:12 [facility] 1.2.840.114 350.1.13.10 4.2.7.2.686 [id number] [facility] 2022-11-06 00:00:00 2022-11-06 00:00:00 Letter (Out) Jose Antonio [facility] 1.2.840.114 350.1.13.10 4.2.7.2.686 [id number] [facility] 2022-10-20 00:00:00 2022-10-20 00:00:00 Telephone Jose Antonio [facility] 1.2.840.114 350.1.13.10 4.2.7.2.686 [id number] [facility] 2022-10-17 00:00:00 2022-10-17 00:00:00 Telephone Aleks Casey [facility] 1.2840.114 350.1.13.10 4.2.7.2.686 [id number] [facility] 2022-10-16 10:24:37 2022-10-16 23:59:00 Outpatient R JOSE [facility] [id number] [facility] 2022-10-16 10:24:37 2022-10-16 23:59:00 Hospital Encounter Jose Antonio [facility] 1.2840.114 350.1.13.10 4.2.7.2.686 [id number] [facility] 2022-10-16 00:00:00 2022-10-16 00:00:00 Cas Mercado [facility] 1.2.840.114 350.1.13.10 4.2.7.2.686 [id number] [facility] 2022-10-09 14:45:00 2022-10-09 16:15:12 Outpatient R KARENALINDA MENDEZ [facility] [id number] [facility] 2022-10-09 14:45:00 2022-10-09 16:15:12 Office Visit Karenalinda [facility] 1.2.840.114 350.1.13.10 4.2.7.2.686 [id number] [facility] 2022-10-09 00:00:00 2022-10-09 00:00:00 Orders Only Doctor Unassigned, [place] [facility] 1.2.840.114 350.1.13.10 4.2.7.2.686 [id number] [facility] 2022-10-09 00:00:00 2022-10-09 00:00:00 Telephone Karenalinda [facility] AT [facility] 1.2.840.114 350.1.13.10 4.2.7.2.686 [id number] [facility] 2022-10-07 16:15:52 2022-10-07 23:59:00 Hospital Encounter Tracee Vida [facility] 1.2.840.114 350.1.13.10 4.2.7.2.686 [id number] [facility] 2022-10-07 16:15:47 2022-10-07 23:59:00 Hospital Encounter [facility] [place] 1.2.840.114 350.1.13.10 4.2.7.2.686 [id number] [facility] 2022-10-07 16:15:47 2022-10-07 23:59:00 Outpatient R VIDA EASLEY [facility] [id number] [facility] 2022-10-07 16:10:00 2022-10-07 17:35:01 Office Visit Tracee Vida Trevino [facility] 1.84.114 350.1.13.10 4.2.7.2.686 [id number] [facility] 2022-10-06 09:00:00 2022-10-06 09:15:00 Office Visit Aleks Casey [facility] 1.84.114 350.1.13.10 4.2.7.2.686 [id number] [facility] 2022-10-06 09:00:00 2022-10-06 09:00:00 Outpatient CAS MOTTA [facility] [id number] [facility] 2022-10-01 21:09:00 2022-10-01 22:37:00 Emergency X TEODORO COTO [facility] ERT [id number] [facility] 2022-10-01 21:09:00 2022-10-01 22:37:00 Emergency Teodoro Coto [facility] 1.84.114 350.1.13.10 4.2.7.2.686 [id number] [facility] 2022-09-24 00:00:00 2022-09-24 00:00:00 Outpatient AJAY_Jaime Barn[facility] AO [id number] [facility] 2022-06-18 17:20:00 2022-06-18 22:23:00 Emergency X SULEMNA ROJAS [facility] ERT [id number] [facility] 2022-06-18 17:20:00 2022-06-18 22:23:00 Emergency Suleman Rojas [facility] 1..114 350.1.13.10 4.2.7.2.686 [id number] [facility] 2021-11-23 16:30:00 2021-11-23 16:30:00 Outpatient Marla FRITZ DON [facility] [id number] [facility] 2020-11-30 17:20:00 2020-11-30 17:20:00 Outpatient JAMILAH MCNAIR [facility] [id number] [facility] 2020-11-30 16:56:52 2020-11-30 17:16:52 Laboratory Only [facility], [facility] .840.114 350.1.13.10 4.2.7.2.686 [id number] [facility] 2020-11-30 00:00:00 2020-11-30 00:00:00 Letter (Out) Doctor Unassigned, [place] [facility] .840.114 350.1.13.10 4.2.7.2.686 [id number] [facility]
--- NOTE | 2024-11-16 15:21 | RAD REPORT ---
EXAMINATION: ONE VIEW CHEST XR CLINICAL INDICATION: COUGH TECHNIQUE: Frontal chest projection is submitted. Examination is limited by patient positioning and t echnique. COMPARISON: 08/08/2022 FINDINGS: The lungs are well inflated and clear. The heart is normal in size. No displaced fractures identified . IMPRESSION: No acute intrathoracic abnormalities.
[2024-11-16 15:42] LABS: Influenza A Ag Negative; Influenza B Ag Negative; SARS-CoV-2 Antigen Rapid Res Negative (Negative)
--- NOTE | 2024-11-16 15:50 | EDPHYS ---
Physician Documentation [facility] Name: Christo Mcknight Age: 39 yrs Sex: Male : 1985 Arrival Date: 11/16/2024 Time: 14:41 Bed IW1 Private MD: ED Physician Ramon Smith HPI: 11/16 14:55 This 39 yrs old Male presents to ER via Unassigned with complaints of Flu Symptoms. rn 14:55 The patient or guardian reports cough, that is intermittent, described as mild, with rn productive sputum, flu symptoms. Onset: The symptoms/episode began/occurred 3 day(s) ago. Severity of symptoms: At their worst the symptoms were mild, in the emergency department the symptoms are unchanged. Modifying factors: The symptoms are alleviated by nothing, the symptoms are aggravated by nothing. The patient has not recently seen a physician. Patient reports sick for 3 days with subjective fever, chills, myalgias, sinus pressure, sore throat and productive cough. Is a smoker. Reports mild shortness of breath with exertion at work. No chest pain. No hemoptysis.. Historical: - Allergies: 15:06 No Known Allergies; iw - PMHx: 15:06 ACUTE MANIC DEPPRESIION; Bipolar disorder; Schizophrenia; iw - PSHx: 15:06 head injury; iw - Immunization history:: Adult Immunizations not up to date. - Infectious Disease History:: Denies. - Family history:: not pertinent. - Social history:: Smoking status: Patient reports the use of cigarette tobacco products, smokes one-half pack cigarettes per day. - Hospitalizations: : No recent hospitalization is reported. ROS: 14:55 Constitutional: Positive for fever and chills ENT: Positive for sore throat and sinus rn pressure Neck: Negative for injury, pain, and swelling, Cardiovascular: Negative for chest pain, palpitations, and edema, Respiratory: Positive for productive cough, negative for hemoptysis, positive for mild shortness of breath Abdomen/GI: Negative for abdominal pain, nausea, vomiting, diarrhea, and constipation, MS/Extremity: Negative for injury and deformity, Skin: Negative for injury, rash, and discoloration, Neuro: Negative for headache, positive for malaise Exam: 14:55 Constitutional: This is a well developed, well nourished patient who is awake, alert, rn and in no acute distress. Ambulatory to room without difficulty or respiratory distress ENT: Pharyngeal erythema with left tonsillar exudate. No evidence of peritonsillar abscess. No stridor. Positive for maxillary sinus tenderness Neck: Nontender lymphadenopathy, negative for meningismus Cardiovascular: Regular rate and rhythm. No pulse deficits. Respiratory: No increased work of breathing, no retractions or nasal flaring. Vital Signs: 15:06 BP 145 / 110; Pulse 80; Resp 16; Temp 97.9(O); Pulse Ox 98% ; Weight 119.75 kg; Height iw 5 ft. 9 in. ; 15:06 Body Mass Index 38.99 (119.75 kg, 175.26 cm) iw MDM: 14:49 Medical Screening Exam initiated rn 15:48 Differential Diagnosis: Bronchitis Upper Respiratory Infection Viral Syndrome rn Pneumonia. Differential Diagnosis: Other sinusitis. Data reviewed: vital signs, nurses notes. Data reviewed: lab test result(s), radiologic studies, plain films, and as a result, I will discharge patient. Independent interpretation of the following test(s) in the Emergency Department X-Ray: My interpretation is Chest x-ray images negative for pneumonia or pneumothorax per my interpretation. Counseling: I had a detailed discussion with the patient and/or guardian regarding the historical points, exam findings, and any diagnostic results supporting the discharge/admit diagnosis, lab results, radiology results, the need for outpatient follow up, to return to the emergency department if symptoms worsen or persist or if there are any questions or concerns that arise at home. Special discussion: I discussed with the patient/guardian in detail that at this point there is no indication for admission to the hospital. It is understood, however, that if the symptoms persist or worsen the patient needs to return immediately for re-evaluation. 11/16 15:23 Order name: COVID-19 Ag + Flu A+B Ag; Complete Time: 15:48 EDMS 11/16 15:23 Order name: Group A Streptococcus RapidSc; Complete Time: 15:48 EDMS 11/16 15:38 Order name: Throat Culture EDMS 11/16 14:54 Order name: XRAY Chest (1 view); Complete Time: 15:23 rn Administered Medications: No medications were administered Disposition Summary: 11/16/24 15:49 Discharge Ordered Notes: Location: Home rn Problem: new rn Symptoms: are unchanged rn Condition: Stable rn Diagnosis - Acute sinusitis, unspecified rn Followup: rn - With: Private Physician - When: As needed - Reason: Recheck today's complaints, Re-evaluation by your physician Discharge Instructions: - Discharge Summary Sheet rn - Sinusitis, Adult rn Forms: - Medication Reconciliation Form rn - Antibiotic care director rn - Prescription Opioid Use rn - Patient Portal Instructions rn - Leadership Thank You Letter rn - Work release form ll1 Prescriptions: - Zithromax Z-Lefty 250 mg Oral Tablet - take 1 tablet ORAL route as directed for 5 days Day 1 - take two (2) tablets rn one time. Day 2, 3, 4 , 5 take one (1) tablet once daily.; 6 tablet; Refills: 0, Product Selection Permitted Signatures: Dispatcher [employer] EDGege Heredia RN RN Ramon Hilario MD MD rim turning finisher: (The following items were deleted from the chart) 14:55 14:55 Chest Single View+RAD.RAD.BRZ ordered. EDMS EDMS 15:22 14:55 Influenza Screen (A \T\ B)+BA.LAB.BRZ ordered. EDMS EDMS 15:22 14:55 SARS-COV-2 Antigen Rapid+I.LAB.BRZ ordered. EDMS EDMS 15:23 14:55 Group A Streptococcus Rapid Sc+BA.LAB.BRZ ordered. EDMS EDMS
--- NOTE | 2024-11-16 15:50 | ER ---
Nurse's Notes [facility] Name: Christo Mcknight Age: 39 yrs Sex: Male : 1985 Arrival Date: 11/16/2024 Time: 14:41 Bed IW1 Private MD: Diagnosis: Acute sinusitis, unspecified Presentation: 11/16 15:05 Chief complaint: Patient states: cough, sore throat, sinus congestion X 3-4 days. iw Coronavirus screen: Client presents with at least one sign or symptom that may indicate coronavirus-19. Ebola Screen: No symptoms or risks identified at this time. Initial Sepsis Screen: Does the patient meet any 2 criteria? No. Patient's initial sepsis screen is negative. Does the patient have a suspected source of infection? No. Patient's initial sepsis screen is negative. 15:05 Method Of Arrival: Ambulatory iw 15:06 Risk Assessment: Do you want to hurt yourself or someone else? Patient reports no iw desire to harm self or others. Onset of symptoms was November 12, 2024. 15:06 Acuity: TAMY 4 iw Historical: - Allergies: 15:06 No Known Allergies; iw - PMHx: 15:06 ACUTE MANIC DEPPRESIION; Bipolar disorder; Schizophrenia; iw - PSHx: 15:06 head injury; iw - Immunization history:: Adult Immunizations not up to date. - Infectious Disease History:: Denies. - Family history:: not pertinent. - Social history:: Smoking status: Patient reports the use of cigarette tobacco products, smokes one-half pack cigarettes per day. - Hospitalizations: : No recent hospitalization is reported. Screenin:[facility] ED Fall Risk Assessment (Adult) History of falling in the last 3 months, ll1 including since admission No falls in past 3 months (0 pts) Confusion or Disorientation No (0 pts) Intoxicated or Sedated No (0 pts) Impaired Gait No (0 pts) Mobility Assist Device Used No (0 pt) Altered Elimination No (0 pt) Score/Fall Risk Level 0 - 2 = Low Risk Maintained a safe environment, Hourly rounding (assess needs \T\ fall precautionary measures) done. Abuse screen: Denies threats or abuse. Nutritional screening: No deficits noted. Tuberculosis screening: No symptoms or risk factors identified. Assessment: 15:55 General: Appears uncomfortable, Behavior is calm, cooperative, appropriate for age, ll1 Reports feeling ill for fatigue for. Pain: Complains of pain in throat Quality of pain is described as aching. Neuro: Reports headache. Respiratory: Reports cough that is. EENT: Reports nasal congestion pain when swallowing. Vital Signs: 15:06 BP 145 / 110; Pulse 80; Resp 16; Temp 97.9(O); Pulse Ox 98% ; Weight 119.75 kg; Height iw 5 ft. 9 in. ; 15:06 Body Mass Index 38.99 (119.75 kg, 175.26 cm) ED Course: 14:49 Patient arrived in ED. al6 14:49 Ramon Smith MD is Attending Physician. rn 15:06 Triage completed. iw 15:07 Arm band placed on. iw 15:18 XRAY Chest (1 view) In Process Unspecified. EDMS 15:56 No provider procedures requiring assistance completed. Patient did not have IV access ll1 during this emergency room visit. 15:57 Patient has correct armband on for positive identification. Provided Education on: ll1 finish all prescribed antibiotics. Administered Medications: No medications were administered Medication: 15:57 VIS not applicable for this client. ll1 Outcome: 15:49 Discharge ordered by . rn 15:56 Discharged to home ambulatory, ll1 15:56 Condition: stable 15:56 Discharge instructions given to patient, Instructed on discharge instructions, follow up and referral plans. medication usage, Demonstrated understanding of instructions, follow-up care, medications, Prescriptions given X 1, 15:57 Patient left the ED. ll1 Signatures: Dispatcher [employer] EDMS Gege Live RN RN Ramon Smith MD MD rn Lewis, Lynsay, RN RN ll1 Re Julien al6 Corrections: (The following items were deleted from the chart) 15:07 15:06 BP 145 / 110; Pulse 80bpm; Resp 16bpm; Pulse Ox 98%; 119.75 kg; Height 5 ft. 9 iw in.; BMI: 38.9; iw
[2024-11-16 18:27] VITALS: BP 145/110; TEMP 97.9; O2SAT 98
== END 2024-11-16 15:57 | disposition home or self-care (01) ==
LOC: ER 14:41
DX: J01.90 Acute sinusitis, unspecified (principal); F17.210 Nicotine dependence, cigarettes, uncomplicated; Z11.52 Encounter for screening for COVID-19
CPT/HCPCS: 36415; 71045; 87070; 87428

== ENCOUNTER 2025-07-15 18:23 | Emergency (ER) | payer SELFPAY ==
--- NOTE | 2025-07-15 18:47 | ER ---
Nurse's Notes [facility] Name: Christo Mcknight Age: 39 yrs Sex: Male : 1985 Arrival Date: 07/15/2025 Time: 18:23 Bed DX3 Private MD: Diagnosis: Cracked tooth;Dental caries, unspecified Presentation: 07/15 18:43 Chief complaint: Patient states: left lower molar toothache for 3 or 4 days. Pain 6/10. pa1 Coronavirus screen: At this time, the client does not indicate any symptoms associated with coronavirus-19. Ebola Screen: No symptoms or risks identified at this time. Initial Sepsis Screen: Does the patient meet any 2 criteria? No. Patient's initial sepsis screen is negative. Does the patient have a suspected source of infection? No. Patient's initial sepsis screen is negative. Risk Assessment: Do you want to hurt yourself or someone else? Patient reports no desire to harm self or others. Onset of symptoms was July 11, 2025. 18:43 Method Of Arrival: Ambulatory [facility] 18:43 Acuity: TAMY 4 me1 Triage Assessment: 18:45 General: Appears uncomfortable, Behavior is calm, cooperative, appropriate for age. me1 Pain: Complains of pain in lower left third molar Pain does not radiate. Pain currently is 6 out of 10 on a pain scale. Quality of pain is described as throbbing, Pain began suddenly, Is continuous. EENT: Reports pain in lower left third molar. Neuro: Level of Consciousness is awake, alert, obeys commands, Oriented to person, place, time, situation, Appropriate for age. Cardiovascular: Patient's skin is warm and dry. Respiratory: Airway is patent Respiratory effort is even, unlabored, Respiratory pattern is regular, symmetrical. GI: No signs and/or symptoms were reported involving the gastrointestinal system. : No signs and/or symptoms were reported regarding the genitourinary system. Derm: Skin is intact, is healthy with good turgor, Skin is normal. Musculoskeletal: Circulation, motion, and sensation intact. Range of motion: intact in all extremities. Historical: - Allergies: 18:44 No Known Allergies; me1 - PMHx: 18:44 ACUTE MANIC DEPPRESIION; Bipolar disorder; Schizophrenia; me1 - PSHx: 18:44 head injury; me1 - Immunization history:: Adult Immunizations up to date. - Infectious Disease History:: Denies. - Social history:: Smoking status: Patient reports the use of cigarette tobacco products, smokes one-half pack cigarettes per day. Screenin:[address] [facility] ED Fall Risk Assessment (Adult) History of falling in the last 3 months, me1 including since admission No falls in past 3 months (0 pts) Confusion or Disorientation No (0 pts) Intoxicated or Sedated No (0 pts) Impaired Gait No (0 pts) Mobility Assist Device Used No (0 pt) Altered Elimination No (0 pt) Score/Fall Risk Level 0 - 2 = Low Risk Oriented to surroundings, Provided non-skid footwear, Hourly rounding (assess needs \T\ fall precautionary measures) done. Abuse screen: Denies threats or abuse. Nutritional screening: No deficits noted. Tuberculosis screening: No symptoms or risk factors identified. Assessment: 18:46 Reassessment: see triage assessment. me1 Vital Signs: 18:43 BP 133 / 85; Pulse 85; Resp 16; Temp 98.5; Pulse Ox 98% ; Weight 117.93 kg; Height 5 me1 ft. 9 in. ; Pain 6/10; 18:43 Body Mass Index 38.39 (117.93 kg, 175.26 cm) me1 18:43 Pain Scale: Adult me1 ED Course: 18:40 Patient arrived in ED. cj3 18:40 Roxanne Montero PA-C is [facility]. sb4 18:40 Kamari Young MD is Attending Physician. sb4 18:44 Triage completed. me1 18:44 Arm band placed on Patient placed in waiting room. me1 18:46 Patient has correct armband on for positive identification. Provided Education on: POC. me1 Verbalized understanding.. 18:46 No provider procedures requiring assistance completed. Patient did not have IV access me1 during this emergency room visit. 18:57 Samina Diallo, LEIGH is Primary Nurse. me1 Administered Medications: 19:00 Drug: [place] PO 5 mg-325 mg 1 tabs PO once Route: PO; me1 19:03 Follow up: Response: No adverse reaction; Pain is decreased me1 19:00 Drug: Ondansetron Oral Disintegrating Tablet Oral Disintegrating Tablet 4 mg PO once me1 Route: PO; 19:03 Follow up: Response: No adverse reaction; Nausea is decreased me1 19:01 Drug: Amoxicillin-Clavulanate PO 875 mg PO once Route: PO; me1 19:03 Follow up: Response: No adverse reaction me1 19:01 Drug: Ibuprofen PO 800 mg PO once Route: PO; me1 19:03 Follow up: Response: No adverse reaction; Pain is decreased me1 Medication: 18:46 VIS not applicable for this client. me1 Outcome: 18:47 Discharge ordered by . rachele 19:03 Discharged to home ambulatory, with significant other, me1 19:03 Condition: stable 19:03 Discharge instructions given to patient, Instructed on discharge instructions, follow up and referral plans. medication usage, Demonstrated understanding of instructions, follow-up care, medications, Prescriptions given X 2, 19:03 Patient left the ED. me1 Signatures: Roxanne Montero PA-C PA-C sb4 Samina Diallo RN RN me1 Marcela Soares cj3
--- NOTE | 2025-07-15 18:47 | EDPHYS ---
Physician Documentation [facility] Name: Christo Mcknight Age: 39 yrs Sex: Male : 1985 Arrival Date: 07/15/2025 Time: 18:23 Bed DX3 Private MD: ED Physician Kamari Young HPI: 07/15 19:02 This 39 yrs old Male presents to ER via Ambulatory with complaints of Toothache. sb4 19:07 The patient presents with broken tooth/teeth, pain, swelling. The problem is located in sb4 the lower left second molar. Onset: The symptoms/episode began/occurred 2 day(s) ago. . Historical: - Allergies: 18:44 No Known Allergies; me1 - PMHx: 18:44 ACUTE MANIC DEPPRESIION; Bipolar disorder; Schizophrenia; me1 - PSHx: 18:44 head injury; me1 - Immunization history:: Adult Immunizations up to date. - Infectious Disease History:: Denies. - Social history:: Smoking status: Patient reports the use of cigarette tobacco products, smokes one-half pack cigarettes per day. ROS: 19:07 Constitutional: Negative for fever, chills, and weight loss, sb4 19:07 ENT: Positive for dental pain, 19:07 All other systems are negative, Exam: 19:07 Head/Face: Normocephalic, atraumatic. Eyes: Extra-ocular motions intact. Periorbital sb4 areas with no swelling, redness, or edema. Respiratory: No increased work of breathing, no retractions or nasal flaring. Skin: Warm, dry with normal turgor. Normal color with no rashes, no lesions, and no evidence of cellulitis. 19:07 Constitutional: The patient appears in no acute distress, alert, awake, 19:07 ENT: Dental exam: dental caries, that is moderate, diffusely, fractured teeth are noted, specifically the lower left second molar, Vital Signs: 18:43 BP 133 / 85; Pulse 85; Resp 16; Temp 98.5; Pulse Ox 98% ; Weight 117.93 kg; Height 5 me1 ft. 9 in. ; Pain 6/10; 18:43 Body Mass Index 38.39 (117.93 kg, 175.26 cm) me1 18:43 Pain Scale: Adult me1 MDM: 18:41 Medical Screening Exam initiated sb4 19:08 Differential diagnosis: dental caries, gingivitis, dental abscess. Data reviewed: vital sb4 signs, nurses notes, and as a result, I will discharge patient. Historians other than the Patient: Spouse/Significant Other: . Counseling: I had a detailed discussion with the patient and/or guardian regarding the historical points, exam findings, and any diagnostic results supporting the discharge/admit diagnosis, the need for outpatient follow up, a dentist, to return to the emergency department if symptoms worsen or persist or if there are any questions or concerns that arise at home. Administered Medications: 19:00 Drug: [place] PO 5 mg-325 mg 1 tabs PO once Route: PO; me1 19:03 Follow up: Response: No adverse reaction; Pain is decreased me1 19:00 Drug: Ondansetron Oral Disintegrating Tablet Oral Disintegrating Tablet 4 mg PO once me1 Route: PO; 19:03 Follow up: Response: No adverse reaction; Nausea is decreased me1 19:01 Drug: Amoxicillin-Clavulanate PO 875 mg PO once Route: PO; me1 19:03 Follow up: Response: No adverse reaction me1 19:01 Drug: Ibuprofen PO 800 mg PO once Route: PO; me1 19:03 Follow up: Response: No adverse reaction; Pain is decreased me1 Disposition Summary: 07/15/25 18:47 Discharge Ordered Notes: Location: Home sb4 Problem: an ongoing problem sb4 Symptoms: have improved sb4 Condition: Stable sb4 Diagnosis - Cracked tooth sb4 - Dental caries, unspecified sb4 Followup: sb4 - With: Private Physician - When: 2 - 3 days - Reason: Recheck today's complaints, Re-evaluation by your physician Discharge Instructions: - Discharge Summary Sheet sb4 - Dental Caries, Adult sb4 - Dental Pain, [id number] sb4 Forms: - Antibiotic Education sb4 - Patient Portal Instructions sb4 - Leadership Thank You Letter sb4 Prescriptions: - Amoxicillin 875 mg Oral Tablet - take 1 tablet ORAL route every 12 hours for 10 days; 20 tablet; Refills: 0, sb4 Product Selection Permitted - Ibuprofen 800 mg Oral Tablet - take 1 tablet ORAL route every 8 hours As needed take with food; 30 tablet; sb4 Refills: 0, Product Selection Permitted Signatures: Roxanne Montero PA-C PA-C sb4 Samina Diallo, RN RN me1
[2025-07-15] MEDS ORDERED: IBUPROFEN 400 MG TAB ONE (18:58)
[2025-07-15] MEDS ORDERED: HYDROCODONE/APAP 5/325 MG TAB ONE (18:58)
[2025-07-15] MEDS ORDERED: AMOX/K CLAV 875 MG TAB ONE (18:58)
[2025-07-15] MEDS ORDERED: ONDANSETRON 4 MG (ODT) TAB ONE (18:58)
[2025-07-16 00:25] VITALS: BP 133/85; TEMP 98.5; O2SAT 98
== END 2025-07-15 19:03 | disposition home or self-care (01) ==
LOC: ER 18:23
DX: K03.81 Cracked tooth (principal); K02.9 Dental caries, unspecified
CPT/HCPCS: 99283; Q0162